=== PATIENT | male | born 1935 | race Caucasian/White ===

== ENCOUNTER 2021-11-21 11:38 | Inpatient (IN) | payer MEDICARE ==
[2021-11-21] MEDS ORDERED: ASPIRIN 81 MG PO STA (11:56)
[2021-11-21] MEDS ORDERED: HEPARIN SODIUM 1,000 UN/ML (10ML VL) IV ONE (12:14)
--- NOTE | 2021-11-21 12:14 | ED ---
General Adult HPI - General Chief complaint: Recheck/Abnormal Lab/Rx Stated complaint: chest pain, abn labs Time Seen by Provider: 11/21/21 11:56 Source: patient, family, RN notes reviewed, old records reviewed (Records from [facility]) Mode of arrival: wheelchair Limitations: no limitations - History of Present Illness Initial comments: Patient is a pleasant 86-year-old male presenting to the emergency department with concerns for heart problems. Patient has had cough and some mild dyspnea over the past 4 days. A bennett did go to [facility] yesterday diagnosed with influenza A. Patient also had positive troponin of 4.5. Patient denies having chest discomfort. Patient does have cardiac history and is on Eliquis. Last dose of Eliquis however was around one and half days ago. - Related Data Home Medications Medication Instructions Recorded Confirmed PARoxetine [Paxil] 20 mg PO DAILY 11/07/15 11/21/21 glipiZIDE [Glucotrol] 10 mg PO AC-BRKFST 11/07/15 11/21/21 lisinopriL [Prinivil] 20 mg PO DAILY 11/07/15 11/21/21 metFORMIN HCL 500 mg PO BID 11/07/15 11/21/21 Apixaban [Eliquis] 2.5 mg PO BID 11/21/21 11/21/21 Aspirin EC [Ecotrin Low Dose] 81 mg PO DAILY 11/21/21 11/21/21 Nitroglycerin Sl Tabs [Nitrostat] 0.4 mg SL Q5M PRN 11/21/21 11/21/21 Simvastatin [Zocor] 20 mg PO HS 11/21/21 11/21/21 Allergies Allergy/AdvReac Type Severity Reaction Status Date / Time Sulfa (Sulfonamide Allergy Rash/Hives Verified 11/21/21 13:13 Antibiotics) Review of Systems ROS Statement: Those systems with pertinent positive or pertinent negative responses have been documented in the HPI. ROS Other: All systems not noted in ROS Statement are negative. Constitutional: Reports: chills Eyes: Denies: eye pain ENT: Reports: congestion. Denies: ear pain Respiratory: Reports: cough, dyspnea Cardiovascular: Denies: chest pain Endocrine: Denies: fatigue Gastrointestinal: Denies: abdominal pain Genitourinary: Denies: dysuria Musculoskeletal: Denies: back pain Skin: Denies: rash Neurological: Denies: weakness Past Medical History Past Medical History: CVA/TIA, Diabetes Mellitus, Hyperlipidemia, Hypertension, Myocardial Infarction ([place]) Additional Past Medical History / Comment(s): bladder ca with ostomy bag History of Any Multi-Drug Resistant Organisms: None Reported Past Surgical History: Coronary Bypass/CABG, Heart Catheterization With Stent Additional Past Surgical History / Comment(s): bladder sx Past Psychological History: Depression Smoking Status: Former smoker Past Alcohol Use History: None Reported Past Drug Use History: None Reported General Exam Limitations: no limitations General appearance: alert, in no apparent distress Head exam: Present: normocephalic Eye exam: Present: normal appearance Neck exam: Present: normal inspection Respiratory exam: Present: wheezes Cardiovascular Exam: Present: irregular rhythm GI/Abdominal exam: Present: soft. Absent: tenderness Extremities exam: Present: normal inspection. Absent: pedal edema, calf tenderness Neurological exam: Present: alert Psychiatric exam: Present: normal affect, normal mood Skin exam: Present: normal color Course Vital Signs 11/21/21 11:45 Temperature 97.2 F L Pulse Rate 91 Respiratory 18 Rate Blood Pressure 139/74 O2 Sat by Pulse 96 Oximetry EKG Findings - EKG Comments: EKG Findings:: A. fib with rate of 91. QRS 150. QT 408. QTC 51. Left axis. Right bundle branch block. T-wave inversion V1 through V4. Medical Decision Making - Medical Decision Making Case also discussed with Dr. Bertrand, who will admit his patient. He is familiar with him. Cardiology will be placed on consult. Patient and family are updated. - Lab Data Result diagrams: 11/21/21 12:42 11/21/21 12:42 Lab Results 11/21/21 11/21/21 11/21/21 Range/Units 12:42 12:42 12:42 WBC 9.9 (3.8-10.6) k/uL RBC 3.87 L (4.30-5.90) m/uL Hgb 11.3 L (13.0-17.5) gm/dL Hct 36.4 L (39.0-53.0) % MCV 94.2 (80.0-100.0) fL MCH 29.2 (25.0-35.0) pg MCHC 31.0 (31.0-37.0) g/dL RDW 13.3 (11.5-15.5) % Plt Count 176 (150-450) k/uL MPV 9.5 Neutrophils % 97 % Lymphocytes % 1 % Monocytes % 2 % Eosinophils % 0 % Basophils % 0 % Neutrophils # 9.6 H (1.3-7.7) k/uL Lymphocytes # 0.1 L (1.0-4.8) k/uL Monocytes # 0.2 (0-1.0) k/uL Eosinophils # 0.0 (0-0.7) k/uL Basophils # 0.0 (0-0.2) k/uL Hypochromasia Slight PT 10.8 (9.0-12.0) sec INR 1.0 (<1.2) APTT 25.4 (22.0-30.0) sec Sodium 133 L (137-145) mmol/L Potassium 4.0 (3.5-5.1) mmol/L Chloride 97 L (98-107) mmol/L Carbon Dioxide 19 L (22-30) mmol/L Anion Gap 17 mmol/L BUN 67 H (9-20) mg/dL Creatinine 2.41 H (0.66-1.25) mg/dL Est GFR (CKD-EPI)AfAm 27 (>60 ml/min/1.73 sqM) Est GFR (CKD-EPI)NonAf 23 (>60 ml/min/1.73 sqM) Glucose 587 H* (74-99) mg/dL Calcium 8.6 (8.4-10.2) mg/dL Magnesium 1.8 (1.6-2.3) mg/dL Total Bilirubin 0.4 (0.2-1.3) mg/dL AST 42 (17-59) U/L ALT 21 (4-49) U/L Alkaline Phosphatase 62 (38-126) U/L Troponin I (0.000-0.034) ng/mL NT-Pro-B Natriuret Pep pg/mL Total Protein 5.9 L (6.3-8.2) g/dL Albumin 3.2 L (3.5-5.0) g/dL Acetone, Qual (Negative) 11/21/21 11/21/21 11/21/21 Range/Units 12:42 12:42 13:15 WBC (3.8-10.6) k/uL RBC (4.30-5.90) m/uL Hgb (13.0-17.5) gm/dL Hct (39.0-53.0) % MCV (80.0-100.0) fL MCH (25.0-35.0) pg MCHC (31.0-37.0) g/dL RDW (11.5-15.5) % Plt Count (150-450) k/uL MPV Neutrophils % % Lymphocytes % % Monocytes % % Eosinophils % % Basophils % % Neutrophils # (1.3-7.7) k/uL Lymphocytes # (1.0-4.8) k/uL Monocytes # (0-1.0) k/uL Eosinophils # (0-0.7) k/uL Basophils # (0-0.2) k/uL Hypochromasia PT (9.0-12.0) sec INR (<1.2) APTT (22.0-30.0) sec Sodium (137-145) mmol/L Potassium (3.5-5.1) mmol/L Chloride (98-107) mmol/L Carbon Dioxide (22-30) mmol/L Anion Gap mmol/L BUN (9-20) mg/dL Creatinine (0.66-1.25) mg/dL Est GFR (CKD-EPI)AfAm (>60 ml/min/1.73 sqM) Est GFR (CKD-EPI)NonAf (>60 ml/min/1.73 sqM) Glucose (74-99) mg/dL Calcium (8.4-10.2) mg/dL Magnesium (1.6-2.3) mg/dL Total Bilirubin (0.2-1.3) mg/dL AST (17-59) U/L ALT (4-49) U/L Alkaline Phosphatase (38-126) U/L Troponin I 2.460 H* (0.000-0.034) ng/mL NT-Pro-B Natriuret Pep 85261 pg/mL Total Protein (6.3-8.2) g/dL Albumin (3.5-5.0) g/dL Acetone, Qual Negative (Negative) - Radiology Data Radiology results: image reviewed (Chest x-ray shows chronic granulomatous disease) Critical Care Time Critical Care Time: Yes Total Critical Care Time: 32 Disposition Clinical Impression: Influenza, Non-STEMI (non-ST elevated myocardial infarction), Hyperglycemia Disposition: ADMITTED IP TO THIS HOSP Condition: Serious Is patient prescribed a controlled substance at d/c from ED?: No Referrals: Delmer Son Jr, DO [Primary Care Provider] - 1-2 days Decision Time: 13:31
[2021-11-21 12:50] LABS: Basophils % (A) 0 %; Eosinophils % (A) 0 %; HCT 36.4 % (39.0-53.0); HGB 11.3 gm/dL (13.0-17.5); Hypochromasia Slight; Lymphocytes # (A) 0.1 k/uL (1.0-4.8); Lymphocytes % (A) 1 %; MCH 29.2 pg (25.0-35.0); MCV 94.2 fL (80.0-100.0); Mean Platelet Volume 9.5; Monocytes # (A) 0.2 k/uL (0-1.0); Monocytes % (A) 2 %; Neutrophils # (A) 9.6 k/uL (1.3-7.7); Neutrophils % (A) 97 %; Platelet Count 176 k/uL (150-450); RBC 3.87 m/uL (4.30-5.90); RDW 13.3 % (11.5-15.5); WBC 9.9 k/uL (3.8-10.6)
[2021-11-21 12:58] LABS: Albumin 3.2 g/dL (3.5-5.0); Calcium 8.6 mg/dL (8.4-10.2); Magnesium 1.8 mg/dL (1.6-2.3); Total Bilirubin 0.4 mg/dL (0.2-1.3); Total Protein 5.9 g/dL (6.3-8.2)
[2021-11-21] MEDS ORDERED: INSULIN REGULAR 100 UNIT/ML VIAL (IV) IV ONE (13:10)
--- NOTE | 2021-11-21 13:15 | XR ---
EXAMINATION TYPE: XR chest 1V portable DATE OF EXAM: 11/21/2021 COMPARISON: 10/30/2016 HISTORY: Cough TECHNIQUE: Single frontal view of the chest is obtained. 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 Postoperative change. Atherosclerotic change aorta . No pneumothorax. Underlying COPD suspected. No pneumothorax. Linear reflection along the right lowe r lobe of as lung markings outside its margins and is likely related to soft tissue. Calcified lymph nodes in the mediastinum noted. IMPRESSION: 1. Correlate for chronic granulomatous disease and COPD.
[2021-11-21 13:18] LABS: Partial Thromboplastin Time 25.4 sec (22.0-30.0); Prothrombin Time 10.8 sec (9.0-12.0)
[2021-11-21] MEDS ORDERED: NITROGLYCERIN SL TABS 0.4 MG TAB SUBLINGUAL PRN (14:02)
[2021-11-21] MEDS ORDERED: SODIUM CHLORIDE 0.9% 1,000 ML IV SCH (14:15)
[2021-11-21] MEDS: HEPARIN SOD,PORK IN 0.45% NACL 25,000 UNIT in 0.45% NACL 1 250ML.BAG IV SCH (14:21)
[2021-11-21 15:17] LABS: Glucose,Whole Blood 487 mg/dL (75-99)
[2021-11-21 16:43] LABS: Glucose,Whole Blood 435 mg/dL (75-99)
[2021-11-21] MEDS: INSULIN ASPART (NovoLOG) 100 UNIT/ML VIAL SQ SCH ×3 (16:48→22:28)
[2021-11-21] MEDS ORDERED: INSULIN ASPART (NovoLOG) 100 UNIT/ML VIAL SQ STA (17:36)
[2021-11-21] MEDS: ALBUTEROL HFA INHALER INHALATION PRN (18:11)
[2021-11-21 22:24] LABS: Glucose,Whole Blood 133 mg/dL (75-99)
[2021-11-21] MEDS: INSULIN DETEMIR (LEVEMIR) 100 UNIT/ML SYR SQ SCH (22:28)
[2021-11-22] MEDS: HEPARIN SODIUM 1,000 UN/ML (10ML VL) IV PRN ×3 (00:38→14:40)
[2021-11-22 06:02] LABS: Basophils % (A) 0 %; Eosinophils # (A) 0.1 k/uL (0-0.7); Eosinophils % (A) 0 %; HCT 37.5 % (39.0-53.0); Lymphocytes # (A) 0.4 k/uL (1.0-4.8); Lymphocytes % (A) 2 %; MCH 29.3 pg (25.0-35.0); MCHC 31.9 g/dL (31.0-37.0); MCV 91.9 fL (80.0-100.0); Mean Platelet Volume 8.9; Monocytes # (A) 0.6 k/uL (0-1.0); Monocytes % (A) 3 %; Neutrophils # (A) 19.8 k/uL (1.3-7.7); Neutrophils % (A) 95 %; Platelet Count 247 k/uL (150-450); RBC 4.08 m/uL (4.30-5.90); RDW 13.2 % (11.5-15.5); WBC 20.9 k/uL (3.8-10.6)
[2021-11-22 06:21] LABS: Partial Thromboplastin Time 23.7 sec (22.0-30.0); Prothrombin Time 10.4 sec (9.0-12.0)
[2021-11-22 06:27] LABS: Glucose,Whole Blood 122 mg/dL (75-99)
[2021-11-22] MEDS: INSULIN ASPART (NovoLOG) 100 UNIT/ML VIAL SQ SCH ×8 (06:30→21:01)
[2021-11-22] MEDS ORDERED: ASPIRIN 325 MG TAB PO SCH (09:00)
[2021-11-22 09:08] LABS: Chol/HDL Ratio 2.82 Ratio; LDL Cholesterol,Calculated 59.9 mg/dL (0.0-131.0)
[2021-11-22] MEDS ORDERED: lisinopriL 20 MG TAB PO SCH (10:30)
--- NOTE | 2021-11-22 11:15 | P.CRDCN ---
History of Present Illness History of present illness: HISTORY OF PRESENTING ILLNESS Patient is a pleasant 86-year-old male with history of prior stroke, persistent atrial fibrillation, diabetes mellitus type 2, hypertension, coronary artery dis ease status post CABG approximately 2001, previous tobacco abuse as well as with Dr. Smiley. Office notes are not currently available. He presents from [facility] where he presented with feeling some increased shortness of breath and fatigue and "going downhill" for last 4-5 days. He was diagnosed with influenza A however also found to have elevated troponin of 4.5. Trop was repeated here and it was 2.4, 2.1. He denies any significant chest pain, pressure, tightness. His creatinine is noted to be elevated 2.4, unclear baseline and also has elevated white count at 20. EKG shows atrial fibrillation with right bundle branch block, nonspecific ST, T-wave abnormalities. REVIEW OF SYSTEMS At the time of my exam: CONSTITUTIONAL: Denies fever or chills. CARDIOVASCULAR: Denies chest pain, +shortness of breath, no orthopnea, PND or palpitations. RESPIRATORY: +mild cough. GASTROINTESTINAL: Denies abdominal pain, diarrhea, constipation, nausea or vomiting. MUSCULOSKELETAL: Denies myalgias. NEUROLOGIC: Denies numbness, tingling or weakness. ENDOCRINE: Denies fatigue, weight change, polydipsia or polyurina. GENITOURINARY: Denies burning, hematuria or urgency with micturation. HEMATOLOGIC: Denies history of anemia or bleeding. PHYSICAL EXAMINATION Vital signs reviewed. CONSTITUTIONAL: No apparent distress. HEENT: Head is normocephalic. Pupils are equal, round. Sclerae anicteric. Mucous membranes of the mouth are moist. No JVD. No carotid bruit. CHEST EXAMINATION: Lungs are clear to auscultation. No chest wall tenderness is noted on palpation or with deep breathing. HEART EXAMINATION: Irregular rate and rhythm. S1, S2 heard. ABDOMEN: Soft, nontender. Positive bowel sounds. EXTREMITIES: 2+ peripheral pulses, no lower extremity edema and no calf tenderness. NEUROLOGIC EXAMINATION: Patient is awake, alert and oriented x3. ASSESSMENT 1. Non-STEMI 2. Coronary artery disease status post CABG 3. Hypertension 4. Hyperlipidemia 5. Chronic kidney disease, unclear baseline 6. Persistent atrial fibrillation controlled ventricular rate 7. History of stroke 8. Diabetes mellitus 9. Leukocytosis 10. Influenza pneumonia PLAN Patient with fairly vague symptoms which may be mostly related to the influenza pneumonia. He has mainly been having some fatigue mild cough and shortness breath. He denies any specific obvious angina-type symptoms however troponin noted to be fairly elevated. We will attempt a more conservative approach given his age as well as significant chronic kidney disease. Check 2-D echo to evaluate for left ventricular function. Continue heparin drip for 48 hours and add low-dose metoprolol. Further recommendations to follow. Past Medical History Past Medical History: CVA/TIA, Diabetes Mellitus, Hyperlipidemia, Hypertension, Myocardial Infarction ([place]) Additional Past Medical History / Comment(s): bladder ca with ostomy bag Last Myocardial Infarction Date:: unknown History of Any Multi-Drug Resistant Organisms: None Reported Past Surgical History: Coronary Bypass/CABG, Heart Catheterization With Stent Additional Past Surgical History / Comment(s): bladder sx Past Anesthesia/Blood Transfusion Reactions: No Reported Reaction Date of Last Stent Placement:: 15 years ago Past Psychological History: Depression Smoking Status: Former smoker Past Alcohol Use History: None Reported Past Drug Use History: None Reported Medications and Allergies Home Medications Medication Instructions Recorded Confirmed Type PARoxetine [Paxil] 20 mg PO DAILY 11/07/15 11/21/21 History glipiZIDE [Glucotrol] 10 mg PO AC-BRKFST 11/07/15 11/21/21 History lisinopriL [Prinivil] 20 mg PO DAILY 11/07/15 11/21/21 History metFORMIN HCL 500 mg PO BID 11/07/15 11/21/21 History Apixaban [Eliquis] 2.5 mg PO BID 11/21/21 11/21/21 History Aspirin EC [Ecotrin Low Dose] 81 mg PO DAILY 11/21/21 11/21/21 History Nitroglycerin Sl Tabs [Nitrostat] 0.4 mg SL Q5M PRN 11/21/21 11/21/21 History Simvastatin [Zocor] 20 mg PO HS 11/21/21 11/21/21 History Allergies Allergy/AdvReac Type Severity Reaction Status Date / Time Sulfa (Sulfonamide Allergy Rash/Hives Verified 11/21/21 13:13 Antibiotics) Physical Exam Vitals: Vital Signs Temp Pulse Pulse Resp BP BP Pulse Ox 11/22/21 10:27 97.8 F 78 22 188/83 96 11/22/21 04:00 97.8 F 82 20 174/90 96 11/21/21 23:07 98.6 F 95 22 98 11/21/21 22:39 98.4 F 87 20 167/90 97 11/21/21 19:45 91 20 183/93 97 11/21/21 16:50 87 20 164/93 100 11/21/21 15:00 98.1 F 52 L 20 153/91 100 11/21/21 14:30 80 16 169/89 100 11/21/21 11:45 97.2 F L 91 18 139/74 96 Intake and Output 11/21/21 11/22/21 11/22/21 22:59 06:59 14:59 Intake Total 147.649 Output Total 400 425 Balance -400 -277.351 Intake: Intake, IV Titration 147.649 Amount Heparin Sod,Pork in 0.45% 147.649 NaCl 25,000 unit In 0.45 % NaCl 1 250ml.bag @ 12 UNITS/KG/HR 8.165 mls/hr IV .Q24H [facility] Rx#: [id number] Output: Urine 400 425 Other: Weight 68.039 kg 71 kg Results 11/22/21 05:42 11/21/21 12:42 Cardiac Enzymes 11/21/21 11/21/21 11/21/21 Range/Units 12:42 12:42 15:42 AST 42 (17-59) U/L Troponin I 2.460 H* 2.110 H* (0.000-0.034) ng/mL 11/21/21 Range/Units 18:18 AST (17-59) U/L Troponin I 2.510 H* (0.000-0.034) ng/mL Coagulation 11/21/21 11/21/21 11/21/21 Range/Units 12:42 18:18 21:35 PT 10.8 (9.0-12.0) sec APTT 25.4 31.6 H 30.3 H (22.0-30.0) sec 11/21/21 11/22/21 Range/Units 23:06 05:42 PT 10.4 (9.0-12.0) sec APTT 30.7 H 23.7 (22.0-30.0) sec Lipids 11/22/21 Range/Units 05:42 Triglycerides 104.00 (0.00-149.00) mg/dL Cholesterol 125.00 (0.00-200.00) mg/dL HDL Cholesterol 44.30 (40.00-60.00) mg/dL Cholesterol/HDL Ratio 2.82 Ratio CBC 11/21/21 11/22/21 Range/Units 12:42 05:42 WBC 9.9 20.9 H (3.8-10.6) k/uL RBC 3.87 L 4.08 L (4.30-5.90) m/uL Hgb 11.3 L 12.0 L (13.0-17.5) gm/dL Hct 36.4 L 37.5 L (39.0-53.0) % Plt Count 176 247 (150-450) k/uL Comprehensive Metabolic Panel 11/21/21 Range/Units 12:42 Sodium 133 L (137-145) mmol/L Potassium 4.0 (3.5-5.1) mmol/L Chloride 97 L (98-107) mmol/L Carbon Dioxide 19 L (22-30) mmol/L BUN 67 H (9-20) mg/dL Creatinine 2.41 H (0.66-1.25) mg/dL Glucose 587 H* (74-99) mg/dL Calcium 8.6 (8.4-10.2) mg/dL AST 42 (17-59) U/L ALT 21 (4-49) U/L Alkaline Phosphatase 62 (38-126) U/L Total Protein 5.9 L (6.3-8.2) g/dL Albumin 3.2 L (3.5-5.0) g/dL Current Medications Generic Name Dose Route Start Last Admin Trade Name Freq PRN Reason Stop Dose Admin Albuterol Sulfate 2 puff 11/21/21 12:22 11/21/21 18:11 Albuterol Hfa Inhaler INHALATION 2 puff RT-QID PRN Administration Shortness Of Breath Or Wheezing Aspirin 81 mg 11/23/21 09:00 Aspirin 81 Mg PO DAILY [facility] Atorvastatin Calcium 10 mg 11/22/21 21:00 Atorvastatin 10 Mg Tab PO HS [facility] Glipizide 10 mg 11/23/21 07:30 Glipizide 10 Mg Tab PO AC-BRKFST [facility] Heparin Sodium (Porcine) 0 unit 11/21/21 12:14 11/22/21 06:54 Heparin Sodium 1,000 Un/Ml (10ml Vl) IV 3,400 unit PER PROTOCOL PRN Administration Low PTT Protocol Heparin Sodium/Sodium Chloride 250 mls @ 8.165 mls/hr 11/21/21 12:15 11/22/21 06:52 25,000 unit/ Sodium Chloride IV 18 units/kg/hr .Q24H [facility] 12.247 mls/hr Titration Protocol 12 UNITS/KG/HR Insulin Aspart 0 unit 11/21/21 17:30 11/22/21 06:30 Insulin Aspart (Novolog) 100 Unit/Ml Vial SQ Not Given ACHS [facility] Protocol Insulin Aspart 5 unit 11/21/21 21:00 11/22/21 06:35 Insulin Aspart (Novolog) 100 Unit/Ml Vial SQ Not Given ACHS [facility] Insulin Detemir 20 unit 11/21/21 21:00 11/21/21 22:28 Insulin Detemir (Levemir) 100 Unit/Ml Syr SQ 20 unit HS [facility] Administration Lisinopril 20 mg 11/22/21 10:30 Lisinopril 20 Mg Tab PO DAILY [facility] Metformin HCl 500 mg 11/22/21 21:00 Metformin 500 Mg Tab PO BID [facility] Nitroglycerin 0.4 mg 11/21/21 14:02 Nitroglycerin Sl Tabs 0.4 Mg Tab SUBLINGUAL Q5M PRN Chest Pain Paroxetine HCl 20 mg 11/22/21 10:30 Paroxetine 20 Mg Tab PO DAILY [facility] Intake and Output 11/21/21 11/22/21 11/22/21 22:59 06:59 14:59 Intake Total 147.649 Output Total 400 425 Balance -400 -277.351 Intake: Intake, IV Titration 147.649 Amount Heparin Sod,Pork in 0.45% 147.649 NaCl 25,000 unit In 0.45 % NaCl 1 250ml.bag @ 12 UNITS/KG/HR 8.165 mls/hr IV .Q24H [facility] Rx#: [id number] Output: Urine 400 425 Other: Weight 68.039 kg 71 kg Patient Weight 11/23/21 06:59 Weight 71 kg 11/22/21 05:42 11/21/21 12:42
[2021-11-22] MEDS ORDERED: METOPROLOL SUCCINATE (ER) 25 MG TAB.ER.24H PO SCH (11:30)
[2021-11-22 12:11] LABS: Glucose,Whole Blood 108 mg/dL (75-99)
[2021-11-22] MEDS: PARoxetine 20 MG TAB PO SCH (12:37)
--- NOTE | 2021-11-22 12:37 | P.HPIM ---
History of Present Illness H&P Date: 11/22/21 Chief Complaint: Chest pain, known history of heart disease, A. fib Mr. Goncalves is an 86-year-old male well-known to our practice known history of heart disease with A. fib. Patient has CAD, mild dyspnea over the last 4 days. Patient originally presented [facility] emergency room, was diagnosed with influenza a. Positive troponin of 4.5 was noted patient denies chest pain does have cardiac history including atrial fibrillation patient is on eliquis . Last dose of eliquis was 1-1/2 days ago Review of Systems Constitutional: Reports fatigue, Reports malaise, Reports poor appetite Ears, nose, mouth and throat: Reports as per HPI Cardiovascular: Reports chest pain, Reports decreased exercise tolerance, Reports high blood pressure, Reports irregular heart beat, Reports orthopnea Respiratory: Reports as per HPI, Reports congestion, Reports cough (Positive influenza a) Gastrointestinal: Reports as per HPI, Reports nausea Genitourinary: Reports as per HPI Musculoskeletal: Reports as per HPI Integumentary: Reports as per HPI Neurological: Reports as per HPI Psychiatric: Reports as per HPI Past Medical History Past Medical History: Atrial Fibrillation, CVA/TIA, Diabetes Mellitus, Hyperlipidemia, Hypertension, Myocardial Infarction ([place]) Additional Past Medical History / Comment(s): bladder ca with ostomy bag Last Myocardial Infarction Date:: unknown History of Any Multi-Drug Resistant Organisms: None Reported Past Surgical History: Coronary Bypass/CABG, Heart Catheterization With Stent Additional Past Surgical History / Comment(s): bladder sx Past Anesthesia/Blood Transfusion Reactions: No Reported Reaction Date of Last Stent Placement:: 15 years ago Past Psychological History: Depression Smoking Status: Former smoker Past Alcohol Use History: None Reported Past Drug Use History: None Reported Medications and Allergies Home Medications Medication Instructions Recorded Confirmed Type PARoxetine [Paxil] 20 mg PO DAILY 11/07/15 11/21/21 History glipiZIDE [Glucotrol] 10 mg PO AC-BRKFST 11/07/15 11/21/21 History lisinopriL [Prinivil] 20 mg PO DAILY 11/07/15 11/21/21 History metFORMIN HCL 500 mg PO BID 11/07/15 11/21/21 History Apixaban [Eliquis] 2.5 mg PO BID 11/21/21 11/21/21 History Aspirin EC [Ecotrin Low Dose] 81 mg PO DAILY 11/21/21 11/21/21 History Nitroglycerin Sl Tabs [Nitrostat] 0.4 mg SL Q5M PRN 11/21/21 11/21/21 History Simvastatin [Zocor] 20 mg PO HS 11/21/21 11/21/21 History Allergies Allergy/AdvReac Type Severity Reaction Status Date / Time Sulfa (Sulfonamide Allergy Rash/Hives Verified 11/21/21 13:13 Antibiotics) Physical Exam Osteopathic Statement: *. No significant issues noted on an osteopathic structural exam other than those noted in the History and Physical/Consult. Vitals: Vital Signs Temp Pulse Pulse Resp BP BP Pulse Ox 11/22/21 10:27 97.8 F 78 22 188/83 96 11/22/21 04:00 97.8 F 82 20 174/90 96 11/21/21 23:07 98.6 F 95 22 98 11/21/21 22:39 98.4 F 87 20 167/90 97 11/21/21 19:45 91 20 183/93 97 11/21/21 16:50 87 20 164/93 100 11/21/21 15:00 98.1 F 52 L 20 153/91 100 11/21/21 14:30 80 16 169/89 100 Intake and Output 11/21/21 11/22/21 11/22/21 22:59 06:59 14:59 Intake Total 147.649 Output Total 400 425 Balance -400 -277.351 Intake: Intake, IV Titration 147.649 Amount Heparin Sod,Pork in 0.45% 147.649 NaCl 25,000 unit In 0.45 % NaCl 1 250ml.bag @ 12 UNITS/KG/HR 8.165 mls/hr IV .Q24H [facility] Rx#: [id number] Output: Urine 400 425 Other: Weight 68.039 kg 71 kg General: [Patient awake, alert and oriented times 3. Patient in no acute distress.] HEENT: [PERRL. EOMI. No pharyngeal erythema or exudate.] Neck: [No adenopathy.] Cardiac: [Heart regularly irregular. No S3. No S4. No clicks, rubs. No murmur.] Lungs: Bibasilar mild wheezes, intermittent cough Abdomen: [No mass. No organomegaly. Bowel sounds presnt and normoactive in all 4 quadrants.] Extremes: [No edema no cyanosis no claudication normal pulses] : Normal male genitalia Musculoskeletal: [No joint erythema, edema or tenderness.] Skin: [No rash.] Neurologic: [No lateralizing deficits. CN II - XII grossly intact.] Lymphatic: [No adenopathy.] Results CBC & Chem 7: 11/22/21 05:42 11/21/21 12:42 Labs: Abnormal Lab Results - Last 24 Hours (Table) 11/21/21 11/21/21 11/21/21 Range/Units 12:42 12:42 12:42 WBC (3.8-10.6) k/uL RBC 3.87 L (4.30-5.90) m/uL Hgb 11.3 L (13.0-17.5) gm/dL Hct 36.4 L (39.0-53.0) % Neutrophils # 9.6 H (1.3-7.7) k/uL Lymphocytes # 0.1 L (1.0-4.8) k/uL APTT (22.0-30.0) sec Sodium 133 L (137-145) mmol/L Chloride 97 L (98-107) mmol/L Carbon Dioxide 19 L (22-30) mmol/L BUN 67 H (9-20) mg/dL Creatinine 2.41 H (0.66-1.25) mg/dL Glucose 587 H* (74-99) mg/dL POC Glucose (mg/dL) (75-99) mg/dL Troponin I 2.460 H* (0.000-0.034) ng/mL Total Protein 5.9 L (6.3-8.2) g/dL Albumin 3.2 L (3.5-5.0) g/dL 11/21/21 11/21/21 11/21/21 Range/Units 15:12 15:42 16:42 WBC (3.8-10.6) k/uL RBC (4.30-5.90) m/uL Hgb (13.0-17.5) gm/dL Hct (39.0-53.0) % Neutrophils # (1.3-7.7) k/uL Lymphocytes # (1.0-4.8) k/uL APTT (22.0-30.0) sec Sodium (137-145) mmol/L Chloride (98-107) mmol/L Carbon Dioxide (22-30) mmol/L BUN (9-20) mg/dL Creatinine (0.66-1.25) mg/dL Glucose (74-99) mg/dL POC Glucose (mg/dL) 487 H 435 H (75-99) mg/dL Troponin I 2.110 H* (0.000-0.034) ng/mL Total Protein (6.3-8.2) g/dL Albumin (3.5-5.0) g/dL 11/21/21 11/21/21 11/21/21 Range/Units 18:18 18:18 21:35 WBC (3.8-10.6) k/uL RBC (4.30-5.90) m/uL Hgb (13.0-17.5) gm/dL Hct (39.0-53.0) % Neutrophils # (1.3-7.7) k/uL Lymphocytes # (1.0-4.8) k/uL APTT 31.6 H 30.3 H (22.0-30.0) sec Sodium (137-145) mmol/L Chloride (98-107) mmol/L Carbon Dioxide (22-30) mmol/L BUN (9-20) mg/dL Creatinine (0.66-1.25) mg/dL Glucose (74-99) mg/dL POC Glucose (mg/dL) (75-99) mg/dL Troponin I 2.510 H* (0.000-0.034) ng/mL Total Protein (6.3-8.2) g/dL Albumin (3.5-5.0) g/dL 11/21/21 11/21/21 11/22/21 Range/Units 22:21 23:06 05:42 WBC 20.9 H (3.8-10.6) k/uL RBC 4.08 L (4.30-5.90) m/uL Hgb 12.0 L (13.0-17.5) gm/dL Hct 37.5 L (39.0-53.0) % Neutrophils # 19.8 H (1.3-7.7) k/uL Lymphocytes # 0.4 L (1.0-4.8) k/uL APTT 30.7 H (22.0-30.0) sec Sodium (137-145) mmol/L Chloride (98-107) mmol/L Carbon Dioxide (22-30) mmol/L BUN (9-20) mg/dL Creatinine (0.66-1.25) mg/dL Glucose (74-99) mg/dL POC Glucose (mg/dL) 133 H (75-99) mg/dL Troponin I (0.000-0.034) ng/mL Total Protein (6.3-8.2) g/dL Albumin (3.5-5.0) g/dL 11/22/21 11/22/21 Range/Units 06:26 12:01 WBC (3.8-10.6) k/uL RBC (4.30-5.90) m/uL Hgb (13.0-17.5) gm/dL Hct (39.0-53.0) % Neutrophils # (1.3-7.7) k/uL Lymphocytes # (1.0-4.8) k/uL APTT (22.0-30.0) sec Sodium (137-145) mmol/L Chloride (98-107) mmol/L Carbon Dioxide (22-30) mmol/L BUN (9-20) mg/dL Creatinine (0.66-1.25) mg/dL Glucose (74-99) mg/dL POC Glucose (mg/dL) 122 H 108 H (75-99) mg/dL Troponin I (0.000-0.034) ng/mL Total Protein (6.3-8.2) g/dL Albumin (3.5-5.0) g/dL Thrombosis Risk Factor Assmnt - Choose All That Apply Each Risk Factor Represents 2 Points: Age 61-74 years (Known history of A. fib currently on eliquis 5 mg twice daily) Thrombosis Risk Factor Assessment Total Risk Factor Score: 2 Thrombosis Risk Factor Assessment Level: Low Risk Assessment and Plan (1) Hyperglycemia Current Visit: Yes Status: Acute Code(s): R73.9 - HYPERGLYCEMIA, UNSPECIFIED SNOMED Code(s): 54966299 (2) Influenza Current Visit: Yes Status: Acute Code(s): J11.1 - FLU DUE TO UNIDENTIFIED INFLUENZA VIRUS W OTH RESP MANIFEST SNOMED Code(s): 0513135 (3) Non-STEMI (non-ST elevated myocardial infarction) Current Visit: Yes Status: Acute Code(s): I21.4 - NON-ST ELEVATION (NSTEMI) MYOCARDIAL INFARCTION SNOMED Code(s): 53695277 Plan: Patient admitted to the hospital monitored bed Cardiology consultation obtained Serial troponins performed Judicious rehydration Conservative therapy recommended Time with Patient: Greater than 30
--- NOTE | 2021-11-22 13:01 | P.PN ---
Progress Note - Text Progress Note Date: 11/22/21 Patient's GFR has decreased lower than 30, 27 today we will stop lisinopril, start hydralazine 25 mg 3 times a day, and continue metoprolol as scheduled will follow blood pressure accordingly
[2021-11-22] MEDS: ALBUTEROL HFA INHALER INHALATION PRN ×3 (13:14→19:48)
[2021-11-22] MEDS: guaiFENesin-DM 600/30MG 1 EACH TAB.ER.12H PO SCH ×2 (14:39→21:29)
[2021-11-22] MEDS: hydrALAZINE HCL 25 MG TAB PO SCH ×2 (15:28→20:41)
[2021-11-22 17:03] LABS: Glucose,Whole Blood 220 mg/dL (75-99)
[2021-11-22] MEDS ORDERED: METOPROLOL TARTRATE 25 MG TAB PO STA (17:06)
[2021-11-22] MEDS: APIXABAN 2.5 MG TABLET PO SCH (18:22)
[2021-11-22] MEDS ORDERED: FUROSEMIDE 40 MG TAB PO STA (20:26)
[2021-11-22] MEDS: IPRATROPIUM-ALBUTEROL 3 ML NEB INHALATION PRN (20:29)
[2021-11-22] MEDS: ATORVASTATIN 10 MG TAB PO SCH (20:42)
[2021-11-22] MEDS: INSULIN DETEMIR (LEVEMIR) 100 UNIT/ML SYR SQ SCH (21:00)
[2021-11-22] MEDS ORDERED: metFORMIN 500 MG TAB PO SCH (21:00)
[2021-11-22 21:02] LABS: Glucose,Whole Blood 159 mg/dL (75-99)
[2021-11-22] MEDS: HEPARIN SOD,PORK IN 0.45% NACL 25,000 UNIT in 0.45% NACL 1 250ML.BAG IV SCH (23:39)
[2021-11-23] MEDS: IPRATROPIUM-ALBUTEROL 3 ML NEB INHALATION PRN ×2 (04:09→08:26)
[2021-11-23 06:33] LABS: Glucose,Whole Blood 127 mg/dL (75-99)
[2021-11-23] MEDS: INSULIN ASPART (NovoLOG) 100 UNIT/ML VIAL SQ SCH ×8 (06:38→21:50)
[2021-11-23] MEDS: glipiZIDE 10 MG TAB PO SCH (06:40)
[2021-11-23 08:32] LABS: Calcium 8.6 mg/dL (8.4-10.2); Potassium 4.8 mmol/L (3.5-5.1)
[2021-11-23] MEDS: hydrALAZINE HCL 25 MG TAB PO SCH ×3 (08:41→21:50)
[2021-11-23] MEDS: guaiFENesin-DM 600/30MG 1 EACH TAB.ER.12H PO SCH ×2 (08:41→21:49)
[2021-11-23] MEDS: ASPIRIN 81 MG PO SCH (08:41)
[2021-11-23] MEDS: METOPROLOL SUCCINATE (ER) 50 MG TAB.ER.24H PO SCH (08:41)
[2021-11-23] MEDS: PARoxetine 20 MG TAB PO SCH (08:41)
[2021-11-23] MEDS: APIXABAN 2.5 MG TABLET PO SCH ×2 (08:41→21:49)
--- NOTE | 2021-11-23 11:09 | P.NPCON ---
History of Present Illness - Reason for Consult acute renal failure, chronic renal failure - History of Present Illness Reason for consultation: Acute kidney injury on chronic kidney disease History of present illness: Patient is a 86-year-old male seen in renal consultation for acute kidney injury on chronic kidney disease. Patient's creatinine in October 2015 was 1.6 at this admission and was elevated at 2.41. Today it is up to 3.12. Patient does not follow with a cardiac cath lab radiology technologist outpatient. Family is present at bedside. Patient was brought to the hospital due to worsening shortness of breath. He also had a productive cough. Symptoms abdomen going on for the last 4 days. He initially presented to [facility] and was diagnosed with influenza A. Daughter states he tested negative for coronavirus. Patient's currently resting in bed and is not a reliable historian. Chest x-ray shows chronic granulomatous disease and COPD. Patient does have history of diabetes. He was also on lisinopril outpatient which is currently held. Denies use of nonsteroidals. No hematuria. He did receive a dose of oral Lasix overnight. Patient has history of bladder cancer and has a urostomy. Vital signs are stable. General: On high flow cannula. HEENT: Head exam is unremarkable. LUNGS: Breath sounds decreased. HEART: Rate and Rhythm are regular. ABDOMEN: Soft, no distention. EXTREMITITES: No edema. Past Medical History Past Medical History: Atrial Fibrillation, Coronary Artery Disease (CAD), CVA/TIA, Diabetes Mellitus, Hyperlipidemia, Hypertension, Myocardial Infarction ([place]) Additional Past Medical History / Comment(s): bladder ca with ostomy bag Last Myocardial Infarction Date:: unknown History of Any Multi-Drug Resistant Organisms: None Reported Past Surgical History: Coronary Bypass/CABG, Heart Catheterization With Stent Additional Past Surgical History / Comment(s): bladder sx Past Anesthesia/Blood Transfusion Reactions: No Reported Reaction Date of Last Stent Placement:: 15 years ago Past Psychological History: Depression Smoking Status: Former smoker Past Alcohol Use History: None Reported Past Drug Use History: None Reported Medications and Allergies Home Medications Medication Instructions Recorded Confirmed Type PARoxetine [Paxil] 20 mg PO DAILY 11/07/15 11/21/21 History glipiZIDE [Glucotrol] 10 mg PO AC-BRKFST 11/07/15 11/21/21 History lisinopriL [Prinivil] 20 mg PO DAILY 11/07/15 11/21/21 History metFORMIN HCL 500 mg PO BID 11/07/15 11/21/21 History Apixaban [Eliquis] 2.5 mg PO BID 11/21/21 11/21/21 History Aspirin EC [Ecotrin Low Dose] 81 mg PO DAILY 11/21/21 11/21/21 History Nitroglycerin Sl Tabs [Nitrostat] 0.4 mg SL Q5M PRN 11/21/21 11/21/21 History Simvastatin [Zocor] 20 mg PO HS 11/21/21 11/21/21 History Allergies Allergy/AdvReac Type Severity Reaction Status Date / Time Sulfa (Sulfonamide Allergy Rash/Hives Verified 11/21/21 13:13 Antibiotics) Physical Exam Vitals: Vital Signs Temp Pulse Pulse Resp BP BP Pulse Ox 11/23/21 08:42 97 11/23/21 08:38 82 11/23/21 08:26 80 11/23/21 08:00 98 F 94 20 127/60 95 11/23/21 04:34 95 11/23/21 04:25 72 11/23/21 04:09 68 11/23/21 04:00 98.1 F 91 21 130/62 98 11/23/21 02:00 92 21 11/23/21 00:00 98.3 F 92 21 130/63 98 11/22/21 20:42 79 11/22/21 20:40 22 94 L 11/22/21 20:31 84 11/22/21 20:00 98.6 F 82 22 159/79 85 L 11/22/21 19:04 189/86 11/22/21 16:45 98.4 F 73 18 198/94 98 11/22/21 13:55 94 L 11/22/21 12:44 98 F 80 18 197/95 98 Intake and Output 11/22/21 11/23/21 11/23/21 22:59 06:59 14:59 Intake Total 0 120 Output Total 150 250 Balance -150 -130 Intake: Oral 0 120 Output: Urine 150 250 Other: Weight 71 kg Results - Lab Results Most recent lab results Calcium 8.6 mg/dL (8.4-10.2) 11/23/21 08:04 Magnesium 2.0 mg/dL (1.6-2.3) 11/23/21 08:04 11/22/21 05:42 11/23/21 08:04 Assessment and Plan Plan: Assessment: 1. Acute kidney injury secondary to ATN. Creatinine was 2.41 on admission and is 3.12 today. 2. Chronic kidney disease stage IIIB with creatinine 1.6 in October 2015. 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 No other records available. 3. History of bladder cancer status post urostomy. 4. Metabolic acidosis secondary to acute kidney injury. Also on metformin. 5. Hypertension with chronic any disease. 6. Diabetes mellitus. 7. Influenza A infection. Plan: Patient received a dose of oral Lasix last night. Continue to hold lisinopril. Repeat chest x-ray. Avoid nephrotoxins. Add oral sodium bicarbonate. Check urinalysis. Stop metformin. Add amlodipine 5 mg once daily. Thank you for the consultation. I will continue to follow the patient with you during his hospital stay.
--- NOTE | 2021-11-23 11:42 | P.PN ---
Subjective HISTORY OF PRESENTING ILLNESS Patient is a pleasant 86-year-old male with history of prior stroke, persistent atrial fibrillation, diabetes mellitus type 2, hypertension, coronary artery disease status post CABG approximately 2001, previous tobacco abuse as well as with Dr. Smiley. Office notes are not currently available. He presents from [facility] where he presented with feeling some increased shortness of breath and fatigue and "going downhill" for last 4-5 days. He was diagnosed with influenza A however also found to have elevated troponin of 4.5. Trop was repeated here and it was 2.4, 2.1. He denies any significant chest pain, pressure, tightness. His creatinine is noted to be elevated 2.4, unclear baseline and also has elevated white count at 20. EKG shows atrial fibrillation with right bundle branch block, nonspecific ST, T-wave abnormalities. 1/2 Patient remains on high flow however states breathing is somewhat better. Apparently he was more confused overnight however no appears improving. Creatinine increased into the threes today and nephrology saw patient with lisinopril held and Amlodipine added. BP's have been controlled. Echo pending. Tele Afib with CVR. PHYSICAL EXAMINATION Vital signs reviewed. CONSTITUTIONAL: No apparent distress. HEENT: Head is normocephalic. Pupils are equal, round. Sclerae anicteric. Mucous membranes of the mouth are moist. No JVD. No carotid bruit. CHEST EXAMINATION: Lungs are clear to auscultation. No chest wall tenderness is noted on palpation or with deep breathing. HEART EXAMINATION: Irregular rate and rhythm. S1, S2 heard. ABDOMEN: Soft, nontender. Positive bowel sounds. EXTREMITIES: 2+ peripheral pulses, no lower extremity edema and no calf tendern ess. NEUROLOGIC EXAMINATION: Patient is awake, alert and oriented x3. ASSESSMENT 1. Non-STEMI 2. Coronary artery disease status post CABG 3. Hypertension 4. Hyperlipidemia 5. Chronic kidney disease, unclear baseline 6. Persistent atrial fibrillation controlled ventricular rate 7. History of stroke 8. Diabetes mellitus 9. Leukocytosis 10. Influenza pneumonia PLAN Patient with fairly vague symptoms which may be mostly related to the influenza pneumonia. Attempt a more conservative approach given his age as well as significant chronic kidney disease. Check 2-D echo to evaluate for left ventricular function. Continue low-dose metoprolol. Monitor Cr closely with KIM. Further recs to follow. Objective - Vital Signs Vital signs: Vital Signs Temp 98 F 11/23/21 08:00 Pulse 82 11/23/21 08:38 Resp 20 11/23/21 08:00 BP 127/60 11/23/21 08:00 Pulse Ox 97 11/23/21 08:42 Intake & Output 11/22/21 11/23/21 11/23/21 18:59 06:59 18:59 Intake Total 734.098 120 Output Total 520 250 Balance 214.098 -130 Weight 71 kg 71 kg Intake: Intake, IV Titration 94.098 Amount Heparin Sod,Pork in 0.45% 94.098 NaCl 25,000 unit In 0.45 % NaCl 1 250ml.bag @ 12 UNITS/KG/HR 8.165 mls/hr IV .[facility]H [facility] Rx#: [id number] Oral 640 120 Output: Urine 520 250 - Labs CBC & Chem 7: 11/22/21 05:42 11/23/21 08:04 Labs: Abnormal Lab Results - Last 24 Hours (Table) 11/22/21 11/22/21 11/22/21 Range/Units 12:01 16:51 20:37 APTT (22.0-30.0) sec Sodium (137-145) mmol/L Carbon Dioxide (22-30) mmol/L BUN (9-20) mg/dL Creatinine (0.66-1.25) mg/dL Glucose (74-99) mg/dL POC Glucose (mg/dL) 108 H 220 H 159 H (75-99) mg/dL 11/22/21 11/23/21 11/23/21 Range/Units 22:21 06:24 08:04 APTT 43.3 H (22.0-30.0) sec Sodium 136 L (137-145) mmol/L Carbon Dioxide 19 L (22-30) mmol/L BUN 103 H* (9-20) mg/dL Creatinine 3.12 H (0.66-1.25) mg/dL Glucose 150 H (74-99) mg/dL POC Glucose (mg/dL) 127 H (75-99) mg/dL
[2021-11-23 11:57] LABS: Glucose,Whole Blood 234 mg/dL (75-99)
--- NOTE | 2021-11-23 12:12 | P.CNPUL ---
History of Present Illness Consult date: 11/23/21 Reason for consult: dyspnea History of present illness: 86-year-old male patient was a transfer from the hospital because of worsening shortness of breath. The patient denies having any previous history of lung disease. He is known to have an extensive cardiac disease including coronary artery disease, previous bypass surgery, atrial fibrillation, chronic kidney disease, hypertension and hyperlipidemia and diabetes mellitus. The patient is not vaccinated for COVID 19. The patient started getting sick approximately 3-4 days ago. He was feeling exhausted and tired and fatigued and short of breath and congested. No documented fever. He was not having any chest pain. His troponin was found to be elevated at 4.5 highest and the repeat levels came back at 2.4 and 2.1. COVID 19 testing that was done in [facility] came tom k negative and the patient is not vaccinated. The patient however tested positive for influenza. He got transferred to the hospital for further evaluation. His creatinine was elevated and the patient is known to have chronic kidney disease. He has white cell count at time of admission was 20.9. Creatinine was at 3.1. Sodium is at 136. Chest x-ray showed no acute pulmonary infiltrates. No altered mentation. No hemoptysis. No pleurisy. Cardiology will be evaluating the patient. The patient is currently on IV heparin. Echocardiac Antonio was also ordered. Review of Systems Constitutional: Reports fatigue, Reports weakness Eyes: denies as per HPI, denies blurred vision, denies bulging eye, denies decreased vision, denies diplopia, denies discharge, denies dry eye, denies irritation, denies itching, denies pain, denies photophobia, denies loss of peripheral vision, denies loss of vision, denies tunnel vision/blind spots Ears: deny: decreased hearing, ear discharge, earache, tinnitus Ears, nose, mouth and throat: Reports as per HPI Breasts: absent: as per HPI, gynecomastia Cardiovascular: Reports as per HPI, Reports shortness of breath Respiratory: Reports congestion, Reports cough, Reports cough with sputum, Reports dyspnea Gastrointestinal: Reports as per HPI Genitourinary: Reports as per HPI Musculoskeletal: Reports as per HPI Musculoskeletal: absent: ankle pain, ankle stiffness, ankle swelling Integumentary: Reports as per HPI Neurological: Reports as per HPI Psychiatric: Reports as per HPI Endocrine: Reports as per HPI Hematologic/Lymphatic: Reports as per HPI Allergic/Immunologic: Reports as per HPI Past Medical History Past Medical History: Atrial Fibrillation, Coronary Artery Disease (CAD), CVA/TIA, Diabetes Mellitus, Hyperlipidemia, Hypertension, Myocardial Infarction ([place]) Additional Past Medical History / Comment(s): bladder ca with ostomy bag Last Myocardial Infarction Date:: unknown History of Any Multi-Drug Resistant Organisms: None Reported Past Surgical History: Coronary Bypass/CABG, Heart Catheterization With Stent Additional Past Surgical History / Comment(s): bladder sx Past Anesthesia/Blood Transfusion Reactions: No Reported Reaction Date of Last Stent Placement:: 15 years ago Past Psychological History: Depression Smoking Status: Former smoker Past Alcohol Use History: None Reported Past Drug Use History: None Reported Medications and Allergies Home Medications Medication Instructions Recorded Confirmed Type PARoxetine [Paxil] 20 mg PO DAILY 11/07/15 11/21/21 History glipiZIDE [Glucotrol] 10 mg PO AC-BRKFST 11/07/15 11/21/21 History lisinopriL [Prinivil] 20 mg PO DAILY 11/07/15 11/21/21 History metFORMIN HCL 500 mg PO BID 11/07/15 11/21/21 History Apixaban [Eliquis] 2.5 mg PO BID 11/21/21 11/21/21 History Aspirin EC [Ecotrin Low Dose] 81 mg PO DAILY 11/21/21 11/21/21 History Nitroglycerin Sl Tabs [Nitrostat] 0.4 mg SL Q5M PRN 11/21/21 11/21/21 History Simvastatin [Zocor] 20 mg PO HS 11/21/21 11/21/21 History Allergies Allergy/AdvReac Type Severity Reaction Status Date / Time Sulfa (Sulfonamide Allergy Rash/Hives Verified 11/21/21 13:13 Antibiotics) Physical Exam Vitals: Vital Signs Temp Pulse Pulse Resp BP BP Pulse Ox 11/23/21 08:42 97 11/23/21 08:38 82 11/23/21 08:26 80 11/23/21 08:00 98 F 94 20 127/60 95 11/23/21 04:34 95 11/23/21 04:25 72 11/23/21 04:09 68 11/23/21 04:00 98.1 F 91 21 130/62 98 11/23/21 02:00 92 21 11/23/21 00:00 98.3 F 92 21 130/63 98 11/22/21 20:42 79 11/22/21 20:40 22 94 L 11/22/21 20:31 84 11/22/21 20:00 98.6 F 82 22 159/79 85 L 11/22/21 19:04 189/86 11/22/21 16:45 98.4 F 73 18 198/94 98 11/22/21 13:55 94 L 11/22/21 12:44 98 F 80 18 197/95 98 Intake and Output 11/22/21 11/23/21 11/23/21 22:59 06:59 14:59 Intake Total 0 120 Output Total 150 250 Balance -150 -130 Intake: Oral 0 120 Output: Urine 150 250 Other: Weight 71 kg CONSTITUTIONAL: No apparent distress. The breathing is mildly labored and the patient is currently on 8 L about 2 by nasal cannula, initially came to us on 15 L of oxygen. Head exam was generally normal. There was no scleral icterus or corneal arcus. Mucous membranes were moist. HEENT: Head is normocephalic. Pupils are equal, round. Sclerae anicteric. Mucous membranes of the mouth are moist. No JVD. No carotid bruit. CHEST EXAMINATION: Lungs revealed diffuse expiratory wheezes heard throughout the lung meza bilaterally Cardiac exam revealed the PMI to be normally situated and sized. The rhythm was regular and no extrasystoles were noted during several minutes of auscultation. The first and second heart sounds were normal and physiologic splitting of the second heart sound was noted. There were no murmurs, rubs, clicks, or gallops. Abdominal exam revealed normal bowel sounds. The abdomen was soft, non-tender, and without masses, organomegaly, or appreciable enlargement of the abdominal aorta. EXTREMITIES: 2+ peripheral pulses, no lower extremity edema and no calf tenderne ss. NEUROLOGIC EXAMINATION: Patient is awake, alert and oriented x3. Results - Laboratory Findings CBC and BMP: 11/22/21 05:42 11/23/21 08:04 PT/INR, D-dimer PT 10.4 sec (9.0-12.0) 11/22/21 05:42 INR 1.0 (<1.2) 11/22/21 05:42 Abnormal lab findings: Abnormal Labs 11/21/21 11/21/21 11/21/21 12:42 12:42 12:42 WBC RBC 3.87 L Hgb 11.3 L Hct 36.4 L Neutrophils # 9.6 H Lymphocytes # 0.1 L APTT Sodium 133 L Chloride 97 L Carbon Dioxide 19 L BUN 67 H Creatinine 2.41 H Glucose 587 H* POC Glucose (mg/dL) Troponin I 2.460 H* Total Protein 5.9 L Albumin 3.2 L 11/21/21 11/21/21 11/21/21 15:12 15:42 16:42 WBC RBC Hgb Hct Neutrophils # Lymphocytes # APTT Sodium Chloride Carbon Dioxide BUN Creatinine Glucose POC Glucose (mg/dL) 487 H 435 H Troponin I 2.110 H* Total Protein Albumin 11/21/21 11/21/21 11/21/21 18:18 18:18 21:35 WBC RBC Hgb Hct Neutrophils # Lymphocytes # APTT 31.6 H 30.3 H Sodium Chloride Carbon Dioxide BUN Creatinine Glucose POC Glucose (mg/dL) Troponin I 2.510 H* Total Protein Albumin 11/21/21 11/21/21 11/22/21 22:21 23:06 05:42 WBC 20.9 H RBC 4.08 L Hgb 12.0 L Hct 37.5 L Neutrophils # 19.8 H Lymphocytes # 0.4 L APTT 30.7 H Sodium Chloride Carbon Dioxide BUN Creatinine Glucose POC Glucose (mg/dL) 133 H Troponin I Total Protein Albumin 11/22/21 11/22/21 11/22/21 06:26 12:01 16:51 WBC RBC Hgb Hct Neutrophils # Lymphocytes # APTT Sodium Chloride Carbon Dioxide BUN Creatinine Glucose POC Glucose (mg/dL) 122 H 108 H 220 H Troponin I Total Protein Albumin 11/22/21 11/22/21 11/23/21 20:37 22:21 06:24 WBC RBC Hgb Hct Neutrophils # Lymphocytes # APTT 43.3 H Sodium Chloride Carbon Dioxide BUN Creatinine Glucose POC Glucose (mg/dL) 159 H 127 H Troponin I Total Protein Albumin 11/23/21 08:04 WBC RBC Hgb Hct Neutrophils # Lymphocytes # APTT Sodium 136 L Chloride Carbon Dioxide 19 L BUN 103 H* Creatinine 3.12 H Glucose 150 H POC Glucose (mg/dL) Troponin I Total Protein Albumin - Diagnostic Findings Chest x-ray: image reviewed Assessment and Plan Plan: 1 acute influenza taken bronchitis with secondary shortness of breath 2 bilateral pulmonary microcalcification 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 Cardiology is on the case. 5 previous history of coronary artery disease, previous CABG 5 history of bladder cancer, post cystectomy and urostomy 5 chronic kidney disease 6 Lucinda CVA 7 Diabetes Melitus type 2 2 platelet by tomorrow Plan The patient will be kept on 8l nasal cannula for now. We'll put the patient on DuoNeb nebulized treatments around the clock 4 times a day We'll start the patient Tamiflu 75 mg by mouth daily We'll start the patient on IV Solu-Medrol and monitor the blood sugars Recheck COVID 19 by PCR Recheck influenza screen and RSV screen by PCR Keep the patient IV heparin Continue aspirin Continue metoprolol 50 mg by mouth daily Echocardiogram Cardiology consultation he'll be Levemir insulin 25 units at bedtime in addition to 5 units of NovoLog with meals and a sliding scale coverage Continue anticoagulation with Eliquis We'll continue to follow
[2021-11-23] MEDS: amLODIPine 5 MG TAB PO SCH (12:25)
[2021-11-23] MEDS: methylPREDNISolone SOD SUCCI 125 MG/2 ML VIAL IV SCH ×3 (12:25→23:13)
[2021-11-23] MEDS: SODIUM BICARBONATE TAB 650 MG TAB PO SCH ×2 (12:25→21:50)
[2021-11-23] MEDS: OSELTAMIVIR 60 MG/10 ML ORAL SYRINGE PO SCH (12:27)
[2021-11-23] MEDS: IPRATROPIUM-ALBUTEROL 3 ML NEB INHALATION SCH ×2 (16:03→20:27)
--- NOTE | 2021-11-23 16:17 | P.PN ---
Subjective Progress Note Date: 11/23/21 Principal diagnosis: Influenza A, atrial fibrillation, acute kidney injury secondary to ATN Mr. Goncalves is somewhat improved today up in chair visiting with her son, O2 8 L per nasal cannula, still holding lisinopril, blood pressure controlled with metoprolol 50 mg daily hydralazine 25 mg 3 times a day, amlodipine 5 mg daily started by nephrology Patient otherwise states he is feeling somewhat better, pulmonary medicine started IV prednisone, continue [facility] [id number], reevaluating covid 19 by PCR, influenza by PCR and RSV ears nephrology also stopped metformin because of the acidosis reviewing the chart it looks like it was already stopped, but appears somewhat ambiguous, this patient's creatinine increased today we'll assess daily improvements, sugars well controlled at this time as well Objective - Vital Signs Vital signs: Vital Signs Temp 97.7 F 11/23/21 12:00 Pulse 76 11/23/21 16:03 Resp 20 11/23/21 12:49 BP 118/56 11/23/21 12:00 Pulse Ox 97 11/23/21 12:00 Intake & Output 11/22/21 11/23/21 11/23/21 18:59 06:59 18:59 Intake Total 734.098 120 240 Output Total 520 250 Balance 214.098 -130 240 Weight 71 kg 71 kg Intake: Intake, IV Titration 94.098 Amount Heparin Sod,Pork in 0.45% 94.098 NaCl 25,000 unit In 0.45 % NaCl 1 250ml.bag @ 12 UNITS/KG/HR 8.165 mls/hr IV .Q24H [facility] Rx#: [id number] Oral 640 120 240 Output: Urine 520 250 - Exam General: [Patient awake, alert and oriented times 3. Patient in no acute distr ess.] HEENT: [PERRL. EOMI. No pharyngeal erythema or exudate.] Neck: [No adenopathy.] Cardiac: [Heart regular in rate and rhythm. No S3. No S4. No clicks, rubs. No murmur.] Lungs: Bilateral breath sounds rhonchorous fair air exchange noted Abdomen: [No mass. No organomegaly. Bowel sounds presnt and normoactive in all 4 quadrants.] Extremes: [No edema no cyanosis no claudication normal pulses] : [] Musculoskeletal: [No joint erythema, edema or tenderness.] Skin: [No rash.] Neurologic: [No lateralizing deficits. CN II - XII grossly intact.] Lymphatic: [No adenopathy.] - Labs CBC & Chem 7: 11/22/21 05:42 11/23/21 08:04 Labs: Abnormal Lab Results - Last 24 Hours (Table) 11/22/21 11/22/21 11/22/21 Range/Units 16:51 20:37 22:21 APTT 43.3 H (22.0-30.0) sec Sodium (137-145) mmol/L Carbon Dioxide (22-30) mmol/L BUN (9-20) mg/dL Creatinine (0.66-1.25) mg/dL Glucose (74-99) mg/dL POC Glucose (mg/dL) 220 H 159 H (75-99) mg/dL 11/23/21 11/23/21 11/23/21 Range/Units 06:24 08:04 11:55 APTT (22.0-30.0) sec Sodium 136 L (137-145) mmol/L Carbon Dioxide 19 L (22-30) mmol/L BUN 103 H* (9-20) mg/dL Creatinine 3.12 H (0.66-1.25) mg/dL Glucose 150 H (74-99) mg/dL POC Glucose (mg/dL) 127 H 234 H (75-99) mg/dL Assessment and Plan (1) Hyperglycemia Current Visit: Yes Status: Acute Code(s): R73.9 - HYPERGLYCEMIA, UNSPECIFIED SNOMED Code(s): 80314611 (2) Influenza Current Visit: Yes Status: Acute Code(s): J11.1 - FLU DUE TO UNIDENTIFIED INFLUENZA VIRUS W OTH RESP MANIFEST SNOMED Code(s): 7055079 (3) Non-STEMI (non-ST elevated myocardial infarction) Current Visit: Yes Status: Acute Code(s): I21.4 - NON-ST ELEVATION (NSTEMI) MYOCARDIAL INFARCTION SNOMED Code(s): 67896497 Plan: Patient admitted to the hospital monitored bed Cardiology consultation obtained, pulmonary consult obtained, nephrology consult obtained Serial troponins performed Lisinopril held, metformin held, Patient started on oral sodium bicarbonate, amlodipine, hydralazine, and metoprolol for blood pressure This patient has improved Judicious rehydration Conservative therapy recommended Time with Patient: Greater than 30
[2021-11-23 16:37] LABS: Glucose,Whole Blood 159 mg/dL (75-99)
[2021-11-23 20:27] LABS: Glucose,Whole Blood 274 mg/dL (75-99)
[2021-11-23] MEDS: INSULIN DETEMIR (LEVEMIR) 100 UNIT/ML SYR SQ SCH (21:49)
[2021-11-23] MEDS: ATORVASTATIN 10 MG TAB PO SCH (21:49)
[2021-11-24] MEDS: methylPREDNISolone SOD SUCCI 125 MG/2 ML VIAL IV SCH ×4 (05:21→23:02)
[2021-11-24 06:08] LABS: Glucose,Whole Blood 99 mg/dL (75-99)
[2021-11-24] MEDS: INSULIN ASPART (NovoLOG) 100 UNIT/ML VIAL SQ SCH ×8 (06:15→21:00)
[2021-11-24] MEDS: glipiZIDE 10 MG TAB PO SCH (06:42)
[2021-11-24] MEDS: guaiFENesin-DM 600/30MG 1 EACH TAB.ER.12H PO SCH ×2 (08:24→21:00)
[2021-11-24] MEDS: hydrALAZINE HCL 25 MG TAB PO SCH ×3 (08:24→21:00)
[2021-11-24] MEDS: amLODIPine 5 MG TAB PO SCH (08:24)
[2021-11-24] MEDS: APIXABAN 2.5 MG TABLET PO SCH ×2 (08:24→21:00)
[2021-11-24] MEDS: PARoxetine 20 MG TAB PO SCH (08:24)
[2021-11-24] MEDS: ASPIRIN 81 MG PO SCH (08:25)
[2021-11-24] MEDS: METOPROLOL SUCCINATE (ER) 50 MG TAB.ER.24H PO SCH (08:25)
[2021-11-24] MEDS: SODIUM BICARBONATE TAB 650 MG TAB PO SCH ×2 (08:25→21:00)
--- NOTE | 2021-11-24 08:36 | XR ---
EXAMINATION TYPE: XR chest 1V DATE OF EXAM: 11/24/2021 COMPARISON: Chest x-ray 11/21/2021 HISTORY: Shortness of breath TECHNIQUE: Single frontal view of the chest is obtained. FINDINGS: Bilateral granulomatous changes again noted within the lungs and mediastinum. No evident p neumothorax or pleural effusion. Patchy airspace disease is present bilaterally towards the lung base s. Cardiac mediastinal silhouette is stable. Patient is post median sternotomy, multiple sternal wire s are fractured. Bones are stable, there are overlying artifacts. IMPRESSION: Correlate for pneumonia.
[2021-11-24] MEDS: IPRATROPIUM-ALBUTEROL 3 ML NEB INHALATION SCH ×4 (08:41→19:31)
--- NOTE | 2021-11-24 09:50 | P.PN ---
Subjective Patient is seen in follow-up for acute kidney injury on chronic kidney disease. Morning labs pending. Nonoliguric. Currently on 8 L high flow cannula. Feels better today. Oral intake poor. Vital signs are stable. HEENT: Head exam is unremarkable. LUNGS: Breath sounds decreased. HEART: Rate and Rhythm are regular. ABDOMEN: Soft, no distention. EXTREMITITES: No edema. Objective - Vital Signs Vital signs: Vital Signs Temp 97.9 F 11/24/21 08:20 Pulse 84 11/24/21 08:52 Resp 20 11/24/21 08:20 BP 149/66 11/24/21 08:20 Pulse Ox 98 11/24/21 08:20 Intake & Output 11/23/21 11/24/21 11/24/21 18:59 06:59 18:59 Intake Total 240 220 180 Output Total 725 Balance 240 -505 180 Weight 69.5 kg Intake: Oral 240 220 180 Output: Urine 725 - Labs CBC & Chem 7: 11/22/21 05:42 11/23/21 08:04 Labs: Abnormal Lab Results - Last 24 Hours (Table) 11/23/21 11/23/21 11/23/21 Range/Units 11:55 16:36 17:00 POC Glucose (mg/dL) 234 H 159 H (75-99) mg/dL Influenza Type A RNA Detected H (Not Detectd) 11/23/21 Range/Units 20:26 POC Glucose (mg/dL) 274 H (75-99) mg/dL Influenza Type A RNA (Not Detectd) Assessment and Plan Plan: Assessment: 1. Acute kidney injury secondary to ATN. Creatinine was 2.41 on admission and is 3.12 today - up to 3.12 yesterday. 2. Chronic kidney disease stage IIIB with creatinine 1.6 in October 2015. 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 No other records available. 3. History of bladder cancer status post urostomy. 4. Metabolic acidosis secondary to acute kidney injury. Was also on metformin. On oral bicarb. 5. Hypertension with chronic any disease. Stable. 6. Diabetes mellitus. 7. Influenza A infection. Plan: Continue to hold lisinopril. Avoid nephrotoxins. Check urinalysis. Follow-up morning labs. Continue to monitor renal function and urine output. Chest Xray is suggestive of pneumonia.
[2021-11-24 10:23] LABS: Calcium 8.8 mg/dL (8.4-10.2); Magnesium 2.2 mg/dL (1.6-2.3); Potassium 4.1 mmol/L (3.5-5.1)
[2021-11-24 12:01] LABS: Glucose,Whole Blood 382 mg/dL (75-99)
[2021-11-24 12:01] LABS: Glucose,Whole Blood 366 mg/dL (75-99)
[2021-11-24] MEDS: OSELTAMIVIR 60 MG/10 ML ORAL SYRINGE PO SCH (12:27)
--- NOTE | 2021-11-24 12:40 | P.PN ---
Subjective Progress Note Date: 11/24/21 HISTORY OF PRESENT ILLNESS: Patient is a pleasant 86-year-old male with history of prior stroke, persistent atrial fibrillation, diabetes mellitus type 2, hypertension, coronary artery disease status post CABG approximately 2001, previous tobacco abuse as well as with Dr. Smiley. Office notes are not currently available. He presents from [facility] where he presented with feeling some increased shortness of breath and fatigue and "going downhill" for last 4-5 days. He was diagnosed with influenza A however also found to have elevated troponin of 4.5. Trop was repeated here and it was 2.4, 2.1. He denies any significant chest pain, pressure, tightness. His creatinine is noted to be elevated 2.4, unclear baseline and also has elevated white count at 20. EKG shows atrial fibrillation with right bundle branch block, nonspecific ST, T-wave abnormalities. 11/23 Patient remains on high flow however states breathing is somewhat better. Apparently he was more confused overnight however no appears improving. Creatinine increased into the threes today and nephrology saw patient with lisinopril held and Amlodipine added. BP's have been controlled. Echo pending. Tele Afib with CVR. 11/24/2021 Patient examined this morning at the bedside. Patient denies chest pain or pressure. He reports mild shortness of breath. He is on 8L NC. Creatinine 3.25.Nephrology following. PHYSICAL EXAM: VITAL SIGNS: Reviewed. GENERAL: Well-developed in no acute distress. NECK: Supple. No JVD or thyromegaly LUNGS: Respirations even and unlabored. Lungs diminished to auscultation bilaterally. HEART: Irregular rate and rhythm. S1 and S2 heard. EXTREMITIES: Normal range of motion. No clubbing or cyanosis. Peripheral pulse s intact. No lower extremity edema ASSESSMENT: 1. Non-STEMI 2. Coronary artery disease status post CABG 3. Hypertension 4. Hyperlipidemia 5. Chronic kidney disease, unclear baseline 6. Persistent atrial fibrillation controlled ventricular rate 7. History of stroke 8. Diabetes mellitus 9. Leukocytosis 10. Influenza pneumonia PLAN: Continue current cardiac medications Continue with conservative management at this time 2D echo ordered. Await results. Further recommendations pending patient course Patient to follow up outpatient with Dr. Smiley Nurse practitioner note has been reviewed by physician. Signing provider agrees with the documented findings, assessment, and plan of care. Objective - Vital Signs Vital signs: Vital Signs Temp 97.9 F 11/24/21 08:20 Pulse 84 11/24/21 08:52 Resp 20 11/24/21 08:20 BP 149/66 11/24/21 08:20 Pulse Ox 98 11/24/21 08:20 Intake & Output 11/23/21 11/24/21 11/24/21 18:59 06:59 18:59 Intake Total 240 220 180 Output Total 725 Balance 240 -505 180 Weight 69.5 kg Intake: Oral 240 220 180 Output: Urine 725 - Labs CBC & Chem 7: 11/22/21 05:42 11/24/21 08:45 Labs: Abnormal Lab Results - Last 24 Hours (Table) 11/23/21 11/23/21 11/23/21 Range/Units 11:55 16:36 17:00 BUN (9-20) mg/dL Creatinine (0.66-1.25) mg/dL Glucose (74-99) mg/dL POC Glucose (mg/dL) 234 H 159 H (75-99) mg/dL Influenza Type A RNA Detected H (Not Detectd) 11/23/21 11/24/21 Range/Units 20:26 08:45 BUN 115 H* (9-20) mg/dL Creatinine 3.25 H (0.66-1.25) mg/dL Glucose 153 H (74-99) mg/dL POC Glucose (mg/dL) 274 H (75-99) mg/dL Influenza Type A RNA (Not Detectd)
--- NOTE | 2021-11-24 16:35 | ECHOF ---
Referral Reason:LV function MEASUREMENTS -------- HEIGHT: 175.3 cm WEIGHT: 69.4 kg BP: RVIDd: 3.4 cm (< 3.3) IVSd: 1.1 cm (0.6 - 1.1) LVIDd: 5.6 cm (3.9 - 5.3) LVPWd: 1.1 cm (0.6 - 1.1) IVSs: 1.9 cm LVIDs: 4.5 cm LVPWs: 1.5 cm LA Diam: 3.3 cm (2.7 - 3.8) LAESV Index (A-L): 26.16 ml/m Ao Diam: 4.2 cm (2.0 - 3.7) AV Cusp: 2.2 cm (1.5 - 2.6) MV EXCURSION: 14.924 mm (> 18.000) MV EF SLOPE: 46 mm/s (70 - 150) EPSS: 0.7 cm AV maxP.54 mmHg AV meanP.60 mmHg RAP: 15.00 mmHg RVSP: 44.20 mmHg FINDINGS -------- This was a technically adequate study. The left ventricular size is normal. There is borderline concentric left ventricular hypertrophy. Overall left ventricular systolic function is low-normal with, an EF between 50 - 55 %. Apical sep yanci LV wall motion is hypokinetic. The right ventricle is mildly enlarged. Normal LA size by volume 22+/-6 ml/m2. The right atrium is normal in size. Interatrial and interventricular septum intact. There is mild aortic valve sclerosis. Trace to mild aortic regurgitation. There is mild aortic st enosis present. Peak/mean gradient across the Aortic Valve is 10.54mmHg / 5.60mmHg. AOV area by p lanimetry 17 mm2 Mild mitral regurgitation is present. Mild tricuspid regurgitation present. There is mild pulmonary hypertension. The right ventricular systolic pressure, as measured by Doppler, is 44.20mmHg. Trace/mild (physiologic) pulmonic regurgitation. The aortic root is dilated measuring 4.2cm. Normal inferior vena cava with less than 50% inspiratory collapse consistent with estimated right atr ial pressure of 15 mmHg. There is no pericardial effusion. CONCLUSIONS -------- 1. The left ventricular size is normal. 2. There is borderline concentric left ventricular hypertrophy. 3. Overall left ventricular systolic function is low-normal with, an EF between 50 - 55 %. 4. Apical septum LV wall motion is hypokinetic. 5. The right ventricle is mildly enlarged. 6. There is mild aortic valve sclerosis. 7. Trace to mild aortic regurgitation. 8. There is mild aortic stenosis present. 9. Peak/mean gradient across the Aortic Valve is 10.54mmHg / 5.60mmHg. 10. AOV area by planimetry 17 mm2 11. Mild mitral regurgitation is present. 12. Mild tricuspid regurgitation present. 13. There is mild pulmonary hypertension. 14. The right ventricular systolic pressure, as measured by Doppler, is 44.20mmHg. 15. Trace/mild (physiologic) pulmonic regurgitation. 16. The aortic root is dilated measuring 4.2cm. 17. Normal inferior vena cava with less than 50% inspiratory collapse consistent with estimated right atrial pressure of 15 mmHg. 18. There is no pericardial effusion. MARRIAGE COUNSELOR: Chelly White RDCS
[2021-11-24 16:56] LABS: Glucose,Whole Blood 316 mg/dL (75-99)
--- NOTE | 2021-11-24 18:50 | P.PN ---
Subjective Progress Note Date: 11/24/21 Principal diagnosis: Respiratory failure. 86-year-old male patient was a transfer from the hospital because of worsening shortness of breath. The patient denies having any previous history of lung disease. He is known to have an extensive cardiac disease including coronary artery disease, previous bypass surgery, atrial fibrillation, chronic kidney disease, hypertension and hyperlipidemia and diabetes mellitus. The patient is not vaccinated for COVID 19. The patient started getting sick approximately 3-4 days ago. He was feeling exhausted and tired and fatigued and short of breath and congested. No documented fever. He was not having any chest pain. His troponin was found to be elevated at 4.5 highest and the repeat levels came back at 2.4 and 2.1. COVID 19 testing that was done in [facility] came back negative and the patient is not vaccinated. The patient however tested positive for influenza. He got transferred to the hospital for further ev aluation. His creatinine was elevated and the patient is known to have chronic kidney disease. He has white cell count at time of admission was 20.9. Creatinine was at 3.1. Sodium is at 136. Chest x-ray showed no acute pulmonary infiltrates. No altered mentation. No hemoptysis. No pleurisy. Cardiology will be evaluating the patient. The patient is currently on IV heparin. Echocardiac Antonio was also ordered. Progress note dated 11/24/2021. The patient is again seen in room 370. The patient's currently on 8 L high flow nasal O2, with saturations of 99%. He's not receiving any IV fluids. The patient's chest x-ray showed patchy bibasilar infiltrates. Laboratory data from today includes a normal sodium, potassium, chloride, and CO2. Anion gap is 13. BUN is 115 with a creatinine of 3.25. Glucose is 153. Chest x-ray from November 24 as above. Objective - Vital Signs Vital signs: Vital Signs Temp 98.2 F 11/24/21 17:00 Pulse 61 11/24/21 17:00 Resp 18 11/24/21 17:00 BP 177/72 11/24/21 17:00 Pulse Ox 100 11/24/21 17:00 Intake & Output 11/23/21 11/24/21 11/24/21 18:59 06:59 18:59 Intake Total 240 220 180 Output Total 725 500 Balance 240 -505 -320 Weight 69.5 kg Intake: Oral 240 220 180 Output: Urine 725 500 - Exam Mild conversational dyspnea, oriented 3. Currently on 8 L high flow nasal O2. Saturations are 99%. HEENT examination is grossly unremarkable. Mucous membranes are moist. No oral lesions. Neck supple. Full range of motion. No adenopathy thyromegaly or neck vein distention. Cardiovascular examination reveals regular rhythm rate. S1-S2 normal. No S3 or S4. No discernible murmur noted. Heart rate 82 bpm. Heart sounds are distant. Lungs reveal bilateral coarse rhonchi and expiratory wheezes. Scattered crackles are noted. Breath sounds are equal bilaterally. Abdomen soft bowel sounds are heard. No masses or tenderness. Extremities are intact. No cyanosis clubbing or edema. Skin is without rash or lesion. Neurologic examination is brief but nonfocal. - Labs CBC & Chem 7: 11/22/21 05:42 11/24/21 08:45 Labs: Abnormal Lab Results - Last 24 Hours (Table) 11/23/21 11/23/21 11/24/21 Range/Units 17:00 20:26 08:45 BUN 115 H* (9-20) mg/dL Creatinine 3.25 H (0.66-1.25) mg/dL Glucose 153 H (74-99) mg/dL POC Glucose (mg/dL) 274 H (75-99) mg/dL Influenza Type A RNA Detected H (Not Detectd) 11/24/21 11/24/21 11/24/21 Range/Units 11:59 12:00 16:55 BUN (9-20) mg/dL Creatinine (0.66-1.25) mg/dL Glucose (74-99) mg/dL POC Glucose (mg/dL) 382 H 366 H 316 H (75-99) mg/dL Influenza Type A RNA (Not Detectd) Assessment and Plan Assessment: Acute hypoxemic respiratory failure secondary to acute influenza. 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 Acute non-ST segment elevation myocardial infarction. Previous history of CAD, with bypass grafting. History of bladder cancer, status post cystectomy and urostomy. History of chronic kidney disease. Previous CVA. Type 2 diabetes mellitus. Plan: Plan dated 11/24/2021. The patient is maintained on 8 L high flow nasal O2. That can probably be weaned as the patient's saturations are 99%. The patient was placed on albu terol sulfate and ipratropium bromide, and started on Tamiflu, 75 mg twice a day. In addition, the patient was started on IV Solu-Medrol. The patient has been seen by cardiology. We'll continue to follow. Prognosis is guarded. Additional recommendations and suggestions where appropriate. Time with Patient: Less than 30
[2021-11-24 20:40] LABS: Glucose,Whole Blood 305 mg/dL (75-99)
[2021-11-24] MEDS: INSULIN DETEMIR (LEVEMIR) 100 UNIT/ML SYR SQ SCH (20:59)
[2021-11-24] MEDS: ATORVASTATIN 10 MG TAB PO SCH (21:00)
[2021-11-25] MEDS: INSULIN ASPART (NovoLOG) 100 UNIT/ML VIAL SQ SCH ×9 (05:58→21:02)
[2021-11-25 05:59] LABS: Glucose,Whole Blood 73 mg/dL (75-99)
[2021-11-25] MEDS: methylPREDNISolone SOD SUCCI 125 MG/2 ML VIAL IV SCH ×4 (06:05→23:04)
[2021-11-25] MEDS: glipiZIDE 10 MG TAB PO SCH (06:06)
[2021-11-25] MEDS: IPRATROPIUM-ALBUTEROL 3 ML NEB INHALATION SCH ×4 (08:17→19:55)
[2021-11-25 08:35] LABS: Calcium 8.7 mg/dL (8.4-10.2); Magnesium 2.3 mg/dL (1.6-2.3); Potassium 4.2 mmol/L (3.5-5.1)
--- NOTE | 2021-11-25 10:02 | P.PN ---
Subjective Patient is seen in follow-up for acute kidney injury on chronic kidney disease. Renal function better. Nonoliguric. Currently on 6 L high flow cannula. Oral intake improving. Overall feels better today compared to yesterday. Vital signs are stable. HEENT: Head exam is unremarkable. On nasal cannula. LUNGS: Breath sounds decreased. HEART: Rate and Rhythm are regular. ABDOMEN: Soft, no distention. EXTREMITITES: No edema. Objective - Vital Signs Vital signs: Vital Signs Temp 97.6 F 11/24/21 21:00 Pulse 64 11/25/21 08:28 Resp 17 11/25/21 03:45 BP 160/68 11/25/21 03:45 Pulse Ox 97 11/25/21 03:45 Intake & Output 11/24/21 11/25/21 11/25/21 18:59 06:59 18:59 Intake Total 180 Output Total 500 300 Balance -320 -300 Intake: Oral 180 Output: Urine 500 300 - Labs CBC & Chem 7: 11/22/21 05:42 11/25/21 07:39 Labs: Abnormal Lab Results - Last 24 Hours (Table) 11/24/21 11/24/21 11/24/21 Range/Units 08:45 11:59 12:00 BUN 115 H* (9-20) mg/dL Creatinine 3.25 H (0.66-1.25) mg/dL Glucose 153 H (74-99) mg/dL POC Glucose (mg/dL) 382 H 366 H (75-99) mg/dL 11/24/21 11/24/21 11/25/21 Range/Units 16:55 20:38 05:57 BUN (9-20) mg/dL Creatinine (0.66-1.25) mg/dL Glucose (74-99) mg/dL POC Glucose (mg/dL) 316 H 305 H 73 L (75-99) mg/dL 11/25/21 Range/Units 07:39 BUN 120 H* (9-20) mg/dL Creatinine 2.87 H (0.66-1.25) mg/dL Glucose 128 H (74-99) mg/dL POC Glucose (mg/dL) (75-99) mg/dL Assessment and Plan Plan: Assessment: 1. Acute kidney injury secondary to ATN. Creatinine peaked at 3.25 this admission and is 2.87 today. BUN elevated due to acute kidney injury as well as steroids. No evidence of GI bleed. 2. Chronic kidney disease stage IIIB with creatinine 1.6 in October 2015. 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 No other records available. 3. History of bladder cancer status post urostomy. 4. Metabolic acidosis secondary to acute kidney injury. Was also on metformin. On oral bicarb. 5. Hypertension with chronic any disease. Stable. 6. Diabetes mellitus. 7. Influenza A infection. Plan: Continue to hold lisinopril. Avoid nephrotoxins. Follow-up urinalysis. Check renal ultrasound. Continue to monitor renal function and urine output. Chest Xray is suggestive of pneumonia.
[2021-11-25] MEDS: METOPROLOL SUCCINATE (ER) 25 MG TAB.ER.24H PO SCH (10:34)
[2021-11-25] MEDS: guaiFENesin-DM 600/30MG 1 EACH TAB.ER.12H PO SCH ×2 (10:38→21:02)
[2021-11-25] MEDS: amLODIPine 5 MG TAB PO SCH (10:38)
[2021-11-25] MEDS: hydrALAZINE HCL 25 MG TAB PO SCH ×3 (10:38→21:01)
[2021-11-25] MEDS: ASPIRIN 81 MG PO SCH (10:38)
[2021-11-25] MEDS: PARoxetine 20 MG TAB PO SCH (10:38)
[2021-11-25] MEDS: SODIUM BICARBONATE TAB 650 MG TAB PO SCH ×2 (10:38→21:02)
[2021-11-25] MEDS: APIXABAN 2.5 MG TABLET PO SCH ×2 (10:38→21:01)
--- NOTE | 2021-11-25 11:11 | US ---
EXAMINATION TYPE: US kidneys/renal and bladder DATE OF EXAM: 11/25/2021 COMPARISON: US CLINICAL HISTORY: john. EXAM MEASUREMENTS: Right Kidney: 9.2 x 4.1 x 4.1 cm Left Kidney: 9.1 x 4.7 x 4.3 cm Patient scanned portable on the floor in his recliner. Cystectomy with bag on right. Right Kidney: limited visualization due to one acoustic window, limited views see no obvious abnormal ity, inferior pole obscured Left Kidney: limited visualization, inferior pole obscured, no hydro Bladder: surgically absent IMPRESSION: 1. Normal renal ultrasound as visualized.
[2021-11-25 11:59] LABS: Glucose,Whole Blood 289 mg/dL (75-99)
--- NOTE | 2021-11-25 12:16 | P.PN ---
Subjective Progress Note Date: 11/25/21 HISTORY OF PRESENT ILLNESS: Patient is a pleasant 86-year-old male with history of prior stroke, persistent atrial fibrillation, diabetes mellitus type 2, hypertension, coronary artery disease status post CABG approximately 2001, previous tobacco abuse as well as with Dr. Smiley. Office notes are not currently available. He presents from [facility] where he presented with feeling some increased shortness of breath and fatigue and "going downhill" for last 4-5 days. He was diagnosed with influenza A however also found to have elevated troponin of 4.5. Trop was repeated here and it was 2.4, 2.1. He denies any significant chest pain, pressure, tightness. His creatinine is noted to be elevated 2.4, unclear baseline and also has elevated white count at 20. EKG shows atrial fibrillation with right bundle branch block, nonspecific ST, T-wave abnormalities. 11/23 Patient remains on high flow however states breathing is somewhat better. Apparently he was more confused overnight however no appears improving. Creatinine increased into the threes today and nephrology saw patient with lisinopril held and Amlodipine added. BP's have been controlled. Echo pending. Tele Afib with CVR. 11/24/2021 Patient examined this morning at the bedside. Patient denies chest pain or pressure. He reports mild shortness of breath. He is on 8L NC. Creatinine 3.25.Nephrology following. 11/25/2021 Patient examined this morning at the bedside. Patient denies chest pain or pressure. Reports SOB. He remains on nasal cannula. Telemetry reveals atrial fibrillation with a heart rate in the 50s. Echocardiogram completed revealing ejection fraction 50-55%, apical septal LV wall hypokinesis, mild aortic regurgitation, mild aortic stenosis, mild mitral regurgitation, and mild tricuspid regurgitation. PHYSICAL EXAM: VITAL SIGNS: Reviewed. GENERAL: Well-developed in no acute distress. NECK: Supple. No JVD or thyromegaly LUNGS: Respirations even and unlabored. Lungs diminished to auscultation bilaterally. HEART: Irregular rate and rhythm. S1 and S2 heard. EXTREMITIES: Normal range of motion. No clubbing or cyanosis. Peripheral pulses intact. No lower extremity edema ASSESSMENT: 1. Non-STEMI 2. Coronary artery disease status post CABG 3. Hypertension 4. Hyperlipidemia 5. Chronic kidney disease, unclear baseline 6. Persistent atrial fibrillation controlled ventricular rate 7. History of stroke 8. Diabetes mellitus 9. Leukocytosis 10. Influenza pneumonia PLAN: Continue current cardiac medications Continue with conservative management at this time Decrease metoprolol to 25mg. Continue telemetry monitoring. Further recommendations pending patient course Patient to follow up outpatient with Dr. Smiley Nurse practitioner note has been reviewed by physician. Signing provider agrees with the documented findings, assessment, and plan of care. Objective - Vital Signs Vital signs: Vital Signs Temp 97.2 F L 11/25/21 10:35 Pulse 54 L 11/25/21 10:35 Resp 20 11/25/21 10:35 BP 138/64 11/25/21 10:35 Pulse Ox 98 11/25/21 10:35 Intake & Output 11/24/21 11/25/21 11/25/21 18:59 06:59 18:59 Intake Total 180 Output Total 500 300 Balance -320 -300 Intake: Oral 180 Output: Urine 500 300 - Labs CBC & Chem 7: 11/22/21 05:42 11/25/21 07:39 Labs: Abnormal Lab Results - Last 24 Hours (Table) 11/24/21 11/24/21 11/25/21 Range/Units 16:55 20:38 05:57 BUN (9-20) mg/dL Creatinine (0.66-1.25) mg/dL Glucose (74-99) mg/dL POC Glucose (mg/dL) 316 H 305 H 73 L (75-99) mg/dL 11/25/21 11/25/21 Range/Units 07:39 11:58 BUN 120 H* (9-20) mg/dL Creatinine 2.87 H (0.66-1.25) mg/dL Glucose 128 H (74-99) mg/dL POC Glucose (mg/dL) 289 H (75-99) mg/dL
[2021-11-25 12:34] LABS: Appearance,Urine Cloudy (Clear); Bacteria,Urine Rare /hpf; Bilirubin,Urine Negative (Negative); Blood,Urine Large (Negative); Color,Urine Yellow; Glucose,Urine (UA) Trace (Negative); Ketones,Urine Negative (Negative); Leukocyte Esterase,Urine Negative (Negative); Mucus,Urine Rare /hpf; Nitrite,Urine Negative (Negative); Protein,Urine 1+ (Negative); RBC,Urine 155 /hpf (0-5); Specific Gravity,Urine 1.017 (1.001-1.035); Urobilinogen,Urine <2.0 mg/dL (<2.0); WBC,Urine 8 /hpf (0-5)
[2021-11-25] MEDS: OSELTAMIVIR 60 MG/10 ML ORAL SYRINGE PO SCH (14:02)
--- NOTE | 2021-11-25 16:04 | P.PN ---
Subjective Progress Note Date: 11/25/21 Principal diagnosis: Respiratory failure. 86-year-old male patient was a transfer from the hospital because of worsening shortness of breath. The patient denies having any previous history of lung disease. He is known to have an extensive cardiac disease including coronary artery disease, previous bypass surgery, atrial fibrillation, chronic kidney disease, hypertension and hyperlipidemia and diabetes mellitus. The patient is not vaccinated for COVID 19. The patient started getting sick approximately 3-4 days ago. He was feeling exhausted and tired and fatigued and short of breath and congested. No documented fever. He was not having any chest pain. His troponin was found to be elevated at 4.5 highest and the repeat levels came back at 2.4 and 2.1. COVID 19 testing that was done in [facility] came back negative and the patient is not vaccinated. The patient however tested positive for influenza. He got transferred to the hospital for further ev aluation. His creatinine was elevated and the patient is known to have chronic kidney disease. He has white cell count at time of admission was 20.9. Creatinine was at 3.1. Sodium is at 136. Chest x-ray showed no acute pulmonary infiltrates. No altered mentation. No hemoptysis. No pleurisy. Cardiology will be evaluating the patient. The patient is currently on IV heparin. Echocardiac Antonio was also ordered. Progress note dated 11/24/2021. The patient is again seen in room 370. The patient's currently on 8 L high flow nasal O2, with saturations of 99%. He's not receiving any IV fluids. The patient's chest x-ray showed patchy bibasilar infiltrates. Laboratory data from today includes a normal sodium, potassium, chloride, and CO2. Anion gap is 13. BUN is 115 with a creatinine of 3.25. Glucose is 153. Chest x-ray from November 24 as above. Progress note dated 11/25/2021. The patient is again seen in room 370. Currently, he's on 6 L high flow nasal cannula. He's not receiving any IV fluids. His saturations are in the mid 90s. Yesterday, he was on 8 L high flow nasal cannula. Clinically, he appears relatively stable. He does have shortness of breath on exertion. Chest x-ray was reviewed. Today's labs include a sodium 139, potassium 4.2, chlorides 104, CO2 25, anion gap 10, BUN 120, and creatinine 2.87. Objective - Vital Signs Vital signs: Vital Signs Temp 97.3 F L 11/25/21 14:00 Pulse 55 L 11/25/21 14:00 Resp 16 11/25/21 14:00 BP 159/69 11/25/21 14:00 Pulse Ox 97 11/25/21 14:00 Intake & Output 11/24/21 11/25/21 11/25/21 18:59 06:59 18:59 Intake Total 180 118 Output Total 500 300 750 Balance -158 -300 -062 Intake: Oral 180 118 Output: Urine 500 300 750 - Exam Mild conversational dyspnea, oriented 3. Currently on 6 L high flow nasal O2. Saturations are 97%. HEENT examination is grossly unremarkable. Neck supple. Full range of motion. No adenopathy thyromegaly or neck vein distention. Cardiovascular examination reveals regular rhythm rate. S1-S2 normal. No S3 or S4. No discernible murmur noted. Heart rate 55 bpm. Heart sounds are distant. Lungs reveal bilateral coarse rhonchi and expiratory wheezes. Scattered crackles are noted. Breath sounds are equal bilaterally. Breath sounds are mildly improved. Abdomen soft bowel sounds are heard. No masses or tenderness. Extremities are intact. No cyanosis clubbing or edema. Skin is without rash or lesion. Neurologic examination is brief but nonfocal. - Labs CBC & Chem 7: 11/22/21 05:42 11/25/21 07:39 Labs: Abnormal Lab Results - Last 24 Hours (Table) 10/25/21 11/24/21 11/24/21 Range/Units 12:01 16:55 20:38 BUN (9-20) mg/dL Creatinine (0.66-1.25) mg/dL Glucose (74-99) mg/dL POC Glucose (mg/dL) 316 H 305 H (75-99) mg/dL Urine Protein 1+ H (Negative) Urine Glucose (UA) Trace H (Negative) Urine Blood Large H (Negative) Urine RBC 155 H (0-5) /hpf Urine WBC 8 H (0-5) /hpf Urine Bacteria Rare H (None) /hpf Urine Mucus Rare H (None) /hpf 11/25/21 11/25/21 11/25/21 Range/Units 05:57 07:39 11:58 BUN 120 H* (9-20) mg/dL Creatinine 2.87 H (0.66-1.25) mg/dL Glucose 128 H (74-99) mg/dL POC Glucose (mg/dL) 73 L 289 H (75-99) mg/dL Urine Protein (Negative) Urine Glucose (UA) (Negative) Urine Blood (Negative) Urine RBC (0-5) /hpf Urine WBC (0-5) /hpf Urine Bacteria (None) /hpf Urine Mucus (None) /hpf Assessment and Plan Assessment: Acute hypoxemic respiratory failure secondary to acute influenza. Bilateral pulmonary microcalcifications, consistent with old varicella pneum onia. Acute non-ST segment elevation myocardial infarction. Previous history of CAD, with bypass grafting. History of bladder cancer, status post cystectomy and urostomy. History of chronic kidney disease. Previous CVA. Type 2 diabetes mellitus. Plan: Plan dated 11/24/2021. The patient is maintained on 8 L high flow nasal O2. That can probably be weaned as the patient's saturations are 99%. The patient was placed on albuterol sulfate and ipratropium bromide, and started on Tamiflu, 75 mg twice a day. In addition, the patient was started on IV Solu-Medrol. The patient has been seen by cardiology. We'll continue to follow. Prognosis is guarded. Additional recommendations and suggestions where appropriate. Plan dated 11/25/2021. The patient is maintained on 6 L high flow nasal cannula. Clinically, the patient appears to be doing bit better. His saturations are in the mid 90s to high 90s. The patient is on DuoNeb, and Tamiflu. Labs, x-rays, and medications are reviewed. The patient was started on corticosteroids. His oxygenation has improved. Additional recommendations and suggestions are forthcoming. Prognosis is guarded. We will continue to follow this patient, and make recommendations where appropriate. Time with Patient: Less than 30
[2021-11-25 16:52] LABS: Glucose,Whole Blood 320 mg/dL (75-99)
--- NOTE | 2021-11-25 17:28 | P.PN ---
Subjective Progress Note Date: 11/24/21 Influenza A, atrial fibrillation, acute kidney injury secondary to ATN Acute non-STEMI, conservative treatment Diabetes mellitus, hyperglycemic, steroid-induced Mr. Goncalves is somewhat improved today up in chair visiting with her son, O2 8 L per nasal cannula, still holding lisinopril, blood pressure controlled with metoprolol 50 mg daily hydralazine 25 mg 3 times a day, amlodipine 5 mg daily started by nephrology Patient otherwise states he is feeling somewhat better, pulmonary medicine started IV prednisone, continue DuoNeb updrafts [id number], reevaluating covid 19 by PCR, influenza by PCR and RSV ears nephrology also stopped metformin because of the acidosis reviewing the chart it looks like it was already stopped, but appears somewhat ambiguous, this patient's creatinine increased today we'll assess daily improvements, sugars well controlled at this time as well 11/24/2021 currently at 8 L high flow nasal cannula maintaining O2 sats in the high 90s. Chest x-ray reporting bilateral granulomatous changes within the lungs and mediastinum, patchy bilateral airspace disease towards lung bases, possible pneumonia-further review as per pulmonary pending .afebrile .poor diet intake .Creatinine worsening up to 3.25. Telemetry reporting atrial fibrillation, heart rates 40s to 70s. Echo pending. Evaluated by cardiology recommending conservative treatment. Objective - Vital Signs Vital signs: Vital Signs Temp 97.9 F 11/24/21 08:20 Pulse 84 11/24/21 08:52 Resp 20 11/24/21 08:20 BP 149/66 11/24/21 08:20 Pulse Ox 98 11/24/21 08:20 Intake & Output 11/23/21 11/24/21 11/24/21 18:59 06:59 18:59 Intake Total 240 220 180 Output Total 725 Balance 240 -505 180 Weight 69.5 kg Intake: Oral 240 220 180 Output: Urine 725 - Exam - Exam General: [Patient awake, alert and oriented times 3. Respiratory effort increased HEENT: [PERRL. EOMI. No pharyngeal erythema or exudate.] Neck: Supple Cardiac: [Heart irregular in rate and rhythm. No S3. No S4. No clicks, rubs. No murmur. Bradycardic] Lungs: Bilateral breath sounds rhonchorous fair air exchange noted, scattered crackles and expiratory wheezing Abdomen: [No mass. No organomegaly. Bowel sounds presnt and normoactive in all 4 quadrants.] Extremes: [No edema no cyanosis no claudication normal pulses] Skin: [Normal dry, No rash.] Neurologic: [No lateralizing deficits. CN II - XII grossly intact.] - Labs CBC & Chem 7: 11/22/21 05:42 11/25/21 07:39 Labs: Abnormal Lab Results - Last 24 Hours (Table) 11/23/21 11/23/21 11/23/21 Range/Units 11:55 16:36 17:00 BUN (9-20) mg/dL Creatinine (0.66-1.25) mg/dL Glucose (74-99) mg/dL POC Glucose (mg/dL) 234 H 159 H (75-99) mg/dL Influenza Type A RNA Detected H (Not Detectd) 11/23/21 11/24/21 Range/Units 20:26 08:45 BUN 115 H* (9-20) mg/dL Creatinine 3.25 H (0.66-1.25) mg/dL Glucose 153 H (74-99) mg/dL POC Glucose (mg/dL) 274 H (75-99) mg/dL Influenza Type A RNA (Not Detectd) Assessment and Plan Assessment: Acute NSTEMI, conservative management Acute Influenza A ,bronchitis Acute hypoxic respiratory failure secondary to the above Abnormal chest x-ray, 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 Close monitoring of renal function, avoiding nephrotoxins. Aggressive pulmonary toileting, Tamiflu, IV steroids. Close monitoring of blood sugars, fluctuating, 99 this morning, afternoon Accu-Chek pending. Conservative management as per cardiology/ echo pending. Son at bedside, encouraged to bring in food from outside that patient might like, his diet intake poor. The impression and plan of care has been dictated as directed. : I performed a history and examination of this patient, discussed the same with the dictator. I agree with the dictator's note ,documented as a scribe. Any additional findings or plans will be noted.
--- NOTE | 2021-11-25 17:41 | P.PN ---
Subjective Progress Note Date: 11/25/21 Mr. Goncalves is somewhat improved today up in chair visiting with her son, O2 8 L per nasal cannula, still holding lisinopril, blood pressure controlled with metoprolol 50 mg daily hydralazine 25 mg 3 times a day, amlodipine 5 mg daily started by nephrology Patient otherwise states he is feeling somewhat better, pulmonary medicine started IV prednisone, continue [facility]oNeb [facility] [id number], reevaluating covid 19 by PCR, influenza by PCR and RSV ears nephrology also stopped metformin because of the acidosis reviewing the chart it looks like it was already stopped, but appears somewhat ambiguous, this patient's creatinine increased today we'll assess daily improvements, sugars well controlled at this time as well 11/24/2021 currently at 8 L high flow nasal cannula maintaining O2 sats in the high 90s. Chest x-ray reporting bilateral granulomatous changes within the lungs and mediastinum, patchy bilateral airspace disease towards lung bases, possible pneumonia-further review as per pulmonary pending .afebrile .poor diet intake .Creatinine worsening up to 3.25. Telemetry reporting atrial fibrillation, heart rates 40s to 70s. Echo pending. Evaluated by cardiology recommending conservative treatment. 11/25/2021 oxygen requirements lessening, down to 6 L high flow nasal cannula, maintaining O2 sats in the 90s. Afebrile. Denies chest pain, palpitations. Telemetry atrial fibrillation, bradycardic. Echo reporting EF 50-55%, apical septal LV wall hypokinetic; beta lana held today with dose decreased during tomorrow as per cardiology. Diet intake failure, patient was able to consume some of the [place] that son brought in. BUN 120, creatinine 2.87. Renal ultrasound pending. Hyperglycemic.Feels better today, sitting up in chair. Objective - Vital Signs Vital signs: Vital Signs Temp 97.3 F L 11/25/21 14:00 Pulse 56 L 11/25/21 17:03 Resp 16 11/25/21 14:00 BP 159/69 11/25/21 14:00 Pulse Ox 97 11/25/21 14:00 Intake & Output 11/24/21 11/25/21 11/25/21 18:59 06:59 18:59 Intake Total 180 118 Output Total 500 300 750 Balance -320 300 -632 Intake: Oral 180 118 Output: Urine 500 300 750 - Exam - Exam General: [Patient awake, alert and oriented times 3,Sitting up in chair, no acute distress HEENT: [PERRL. EOMI. No pharyngeal erythema or exudate.] Neck: Supple Cardiac: [Heart irregular in rate and rhythm. No S3. No S4. No clicks, rubs. No murmur. Bradycardic] Lungs: Bilateral breath sounds rhonchorous fair air exchange noted, scattered crackles and expiratory wheezing Abdomen: [No mass. No organomegaly. Bowel sounds presnt and normoactive in all 4 quadrants.] Extremes: [No edema no cyanosis no claudication normal pulses] Skin: [Normal dry, No rash.] Neurologic: [No lateralizing deficits. CN II - XII grossly intact.] - Labs CBC & Chem 7: 11/22/21 05:42 11/25/21 07:39 Labs: Abnormal Lab Results - Last 24 Hours (Table) 10/25/21 11/24/21 11/25/21 Range/Units 12:01 20:38 05:57 BUN (9-20) mg/dL Creatinine (0.66-1.25) mg/dL Glucose (74-99) mg/dL POC Glucose (mg/dL) 305 H 73 L (75-99) mg/dL Urine Protein 1+ H (Negative) Urine Glucose (UA) Trace H (Negative) Urine Blood Large H (Negative) Urine RBC 155 H (0-5) /hpf Urine WBC 8 H (0-5) /hpf Urine Bacteria Rare H (None) /hpf Urine Mucus Rare H (None) /hpf 11/25/21 11/25/21 11/25/21 Range/Units 07:39 11:58 16:48 BUN 120 H* (9-20) mg/dL Creatinine 2.87 H (0.66-1.25) mg/dL Glucose 128 H (74-99) mg/dL POC Glucose (mg/dL) 289 H 320 H (75-99) mg/dL Urine Protein (Negative) Urine Glucose (UA) (Negative) Urine Blood (Negative) Urine RBC (0-5) /hpf Urine WBC (0-5) /hpf Urine Bacteria (None) /hpf Urine Mucus (None) /hpf Assessment and Plan Assessment: Acute NSTEMI, conservative management Acute Influenza A ,bronchitis Acute hypoxic respiratory failure secondary to the above Abnormal chest x-ray, Consistent with old varicella pneumonia per pulmonary Acute kidney injury secondary to ATN Chronic kidney disease stage IIIB, baseline creatinine 1.6 Diabetes mellitus with Hyperglycemia CAD, history of CABG Former nicotine dependence History of bladder CA with urostomy Plan: Continue on current medication regime ,monitoring and symptomatic victor m tment. Premeal and long acting insulins adjusted. Close monitoring of accucheks. Maintain aggressive pulmonary toileting, Tamiflu, IV steroids.Renal US pending. DC planning in progress for [facility]O pending Pulmonary and nephrology clearance. The impression and plan of care has been dictated as directed. : I performed a history and examination of this patient, discussed the same with the dictator. I agree with the dictator's note ,documented as a scribe. Any additional findings or plans will be noted.
[2021-11-25 20:00] LABS: Glucose,Whole Blood 395 mg/dL (75-99)
[2021-11-25] MEDS: ATORVASTATIN 10 MG TAB PO SCH (21:02)
[2021-11-25] MEDS: INSULIN DETEMIR (LEVEMIR) 100 UNIT/ML SYR SQ SCH (21:02)
[2021-11-26 02:03] LABS: Glucose,Whole Blood 260 mg/dL (75-99)
[2021-11-26 06:16] LABS: Glucose,Whole Blood 216 mg/dL (75-99)
[2021-11-26] MEDS: glipiZIDE 10 MG TAB PO SCH (06:32)
[2021-11-26] MEDS: INSULIN ASPART (NovoLOG) 100 UNIT/ML VIAL SQ SCH ×8 (06:33→20:44)
[2021-11-26] MEDS: methylPREDNISolone SOD SUCCI 125 MG/2 ML VIAL IV SCH ×2 (06:34→11:10)
[2021-11-26 08:18] LABS: Calcium 8.4 mg/dL (8.4-10.2); Magnesium 2.2 mg/dL (1.6-2.3); Potassium 4.1 mmol/L (3.5-5.1)
--- NOTE | 2021-11-26 09:34 | P.PN ---
Subjective Patient is seen in follow-up for acute kidney injury on chronic kidney disease. Renal function better. Nonoliguric. Currently on 6 L high flow cannula. Oral intake fair. Resting in bed. No active complaints. Vital signs are stable. HEENT: Head exam is unremarkable. On nasal cannula. LUNGS: Breath sounds decreased. HEART: Rate and Rhythm are regular. ABDOMEN: Soft, no distention. EXTREMITITES: No edema. Objective - Vital Signs Vital signs: Vital Signs Temp 98.9 F 11/26/21 07:45 Pulse 51 L 11/26/21 07:45 Resp 19 11/26/21 07:45 BP 168/73 11/26/21 07:45 Pulse Ox 95 11/26/21 07:45 Intake & Output 11/25/21 11/26/21 11/26/21 18:59 06:59 18:59 Intake Total 118 Output Total 750 400 Balance -632 -400 Intake: Oral 118 Output: Urine 750 400 - Labs CBC & Chem 7: 11/22/21 05:42 11/26/21 07:13 Labs: Abnormal Lab Results - Last 24 Hours (Table) 10/25/21 11/25/21 11/25/21 Range/Units 12:01 05:42 11:58 BUN (9-20) mg/dL Creatinine (0.66-1.25) mg/dL Glucose (74-99) mg/dL POC Glucose (mg/dL) 289 H (75-99) mg/dL Hemoglobin A1c 7.6 H (4.0-6.0) % Urine Protein 1+ H (Negative) Urine Glucose (UA) Trace H (Negative) Urine Blood Large H (Negative) Urine RBC 155 H (0-5) /hpf Urine WBC 8 H (0-5) /hpf Urine Bacteria Rare H (None) /hpf Urine Mucus Rare H (None) /hpf 11/25/21 11/25/21 11/26/21 Range/Units 16:48 19:58 02:01 BUN (9-20) mg/dL Creatinine (0.66-1.25) mg/dL Glucose (74-99) mg/dL POC Glucose (mg/dL) 320 H 395 H 260 H (75-99) mg/dL Hemoglobin A1c (4.0-6.0) % Urine Protein (Negative) Urine Glucose (UA) (Negative) Urine Blood (Negative) Urine RBC (0-5) /hpf Urine WBC (0-5) /hpf Urine Bacteria (None) /hpf Urine Mucus (None) /hpf 11/26/21 11/26/21 Range/Units 06:14 07:13 BUN 122 H* (9-20) mg/dL Creatinine 2.55 H (0.66-1.25) mg/dL Glucose 176 H (74-99) mg/dL POC Glucose (mg/dL) 216 H (75-99) mg/dL Hemoglobin A1c (4.0-6.0) % Urine Protein (Negative) Urine Glucose (UA) (Negative) Urine Blood (Negative) Urine RBC (0-5) /hpf Urine WBC (0-5) /hpf Urine Bacteria (None) /hpf Urine Mucus (None) /hpf Assessment and Plan Plan: Assessment: 1. Acute kidney injury secondary to ATN. Creatinine peaked at 3.25 this admission and is 2.55 today. No hydronephrosis noted on kidney ultrasound. BUN elevated due to acute kidney injury as well as steroids. No evidence of GI bleed. 2. Chronic kidney disease stage IIIB with creatinine 1.6 in October 2015. 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 No other records available. 3. History of bladder cancer status post urostomy. 4. Metabolic acidosis secondary to acute kidney injury. Was also on metformin. On oral bicarb. 5. Hypertension with chronic any disease. 6. Diabetes mellitus. 7. Influenza A infection. Plan: Continue to hold lisinopril. Dose of hydralazine increased. Avoid nephrotoxins. Continue to monitor renal function and urine output. Chest Xray is suggestive of pneumonia.
[2021-11-26] MEDS: IPRATROPIUM-ALBUTEROL 3 ML NEB INHALATION SCH ×4 (10:50→21:19)
[2021-11-26] MEDS: METOPROLOL SUCCINATE (ER) 25 MG TAB.ER.24H PO SCH (11:08)
[2021-11-26] MEDS: SODIUM BICARBONATE TAB 650 MG TAB PO SCH ×2 (11:10→20:42)
[2021-11-26] MEDS: OSELTAMIVIR 60 MG/10 ML ORAL SYRINGE PO SCH (11:10)
[2021-11-26] MEDS: amLODIPine 5 MG TAB PO SCH (11:10)
[2021-11-26] MEDS: ASPIRIN 81 MG PO SCH (11:10)
[2021-11-26] MEDS: APIXABAN 2.5 MG TABLET PO SCH ×2 (11:10→20:43)
[2021-11-26] MEDS: PARoxetine 20 MG TAB PO SCH (11:10)
[2021-11-26] MEDS: hydrALAZINE HCL 25 MG TAB PO SCH (11:18)
[2021-11-26 11:41] LABS: Glucose,Whole Blood 135 mg/dL (75-99)
--- NOTE | 2021-11-26 12:11 | P.PN ---
Subjective Progress Note Date: 11/26/21 HISTORY OF PRESENT ILLNESS: Patient is a pleasant 86-year-old male with history of prior stroke, persistent atrial fibrillation, diabetes mellitus type 2, hypertension, coronary artery disease status post CABG approximately 2001, previous tobacco abuse as well as with Dr. Smiley. Office notes are not currently available. He presents from [facility] where he presented with feeling some increased shortness of breath and fatigue and "going downhill" for last 4-5 days. He was diagnosed with influenza A however also found to have elevated troponin of 4.5. Trop was repeated here and it was 2.4, 2.1. He denies any significant chest pain, pressure, tightness. His creatinine is noted to be elevated 2.4, unclear baseline and also has elevated white count at 20. EKG shows atrial fibrillation with right bundle branch block, nonspecific ST, T-wave abnormalities. 11/23 Patient remains on high flow however states breathing is somewhat better. Apparently he was more confused overnight however no appears improving. Creatinine increased into the threes today and nephrology saw patient with lisinopril held and Amlodipine added. BP's have been controlled. Echo pending. Tele Afib with CVR. 11/24/2021 Patient examined this morning at the bedside. Patient denies chest pain or pressure. He reports mild shortness of breath. He is on 8L NC. Creatinine 3.25.Nephrology following. 11/25/2021 Patient examined this morning at the bedside. Patient denies chest pain or pressure. Reports SOB. He remains on nasal cannula. Telemetry reveals atrial fibrillation with a heart rate in the 50s. Echocardiogram completed revealing ejection fraction 50-55%, apical septal LV wall hypokinesis, mild aortic regurgitation, mild aortic stenosis, mild mitral regurgitation, and mild tricuspid regurgitation. 11/26/2021 Patient examined this morning at the bedside. Patient denies chest pain or pressure. He continues to report mild shortness of breath. He remains on nasal cannula 6 L/m. Telemetry reviewed revealing atrial fibrillation. His heart rate remains in the 50s. PHYSICAL EXAM: VITAL SIGNS: Reviewed. GENERAL: Well-developed in no acute distress. NECK: Supple. No JVD or thyromegaly LUNGS: Respirations even and unlabored. Lungs diminished to auscultation bilaterally. HEART: Irregular rate and rhythm. S1 and S2 heard. EXTREMITIES: Normal range of motion. No clubbing or cyanosis. Peripheral pulses intact. No lower extremity edema ASSESSMENT: 1. Non-STEMI 2. Coronary artery disease status post CABG 3. Hypertension 4. Hyperlipidemia 5. Chronic kidney disease, unclear baseline 6. Persistent atrial fibrillation controlled ventricular rate 7. History of stroke 8. Diabetes mellitus 9. Leukocytosis 10. Influenza pneumonia PLAN: Continue current cardiac medications Continue with conservative management at this time No further inpatient recommendations from a cardiac standpoint We will sign off. Please reconsult if needed. Nurse practitioner note has been reviewed by physician. Signing provider agrees with the documented findings, assessment, and plan of care. Objective - Vital Signs Vital signs: Vital Signs Temp 98.9 F 11/26/21 07:45 Pulse 51 L 11/26/21 07:45 Resp 19 11/26/21 07:45 BP 168/73 11/26/21 07:45 Pulse Ox 95 11/26/21 07:45 Intake & Output 11/25/21 11/26/21 11/26/21 18:59 06:59 18:59 Intake Total 118 Output Total 750 400 Balance -632 -400 Intake: Oral 118 Output: Urine 750 400 - Labs CBC & Chem 7: 11/22/21 05:42 11/26/21 07:13 Labs: Abnormal Lab Results - Last 24 Hours (Table) 10/25/21 11/25/21 11/25/21 Range/Units 12:01 05:42 16:48 BUN (9-20) mg/dL Creatinine (0.66-1.25) mg/dL Glucose (74-99) mg/dL POC Glucose (mg/dL) 320 H (75-99) mg/dL Hemoglobin A1c 7.6 H (4.0-6.0) % Urine Protein 1+ H (Negative) Urine Glucose (UA) Trace H (Negative) Urine Blood Large H (Negative) Urine RBC 155 H (0-5) /hpf Urine WBC 8 H (0-5) /hpf Urine Bacteria Rare H (None) /hpf Urine Mucus Rare H (None) /hpf 11/25/21 11/26/21 11/26/21 Range/Units 19:58 02:01 06:14 BUN (9-20) mg/dL Creatinine (0.66-1.25) mg/dL Glucose (74-99) mg/dL POC Glucose (mg/dL) 395 H 260 H 216 H (75-99) mg/dL Hemoglobin A1c (4.0-6.0) % Urine Protein (Negative) Urine Glucose (UA) (Negative) Urine Blood (Negative) Urine RBC (0-5) /hpf Urine WBC (0-5) /hpf Urine Bacteria (None) /hpf Urine Mucus (None) /hpf 11/26/21 11/26/21 Range/Units 07:13 11:40 BUN 122 H* (9-20) mg/dL Creatinine 2.55 H (0.66-1.25) mg/dL Glucose 176 H (74-99) mg/dL POC Glucose (mg/dL) 135 H (75-99) mg/dL Hemoglobin A1c (4.0-6.0) % Urine Protein (Negative) Urine Glucose (UA) (Negative) Urine Blood (Negative) Urine RBC (0-5) /hpf Urine WBC (0-5) /hpf Urine Bacteria (None) /hpf Urine Mucus (None) /hpf
--- NOTE | 2021-11-26 15:39 | P.PN ---
Subjective Progress Note Date: 11/26/21 Principal diagnosis: Respiratory failure. 86-year-old male patient was a transfer from the hospital because of worsening shortness of breath. The patient denies having any previous history of lung disease. He is known to have an extensive cardiac disease including coronary artery disease, previous bypass surgery, atrial fibrillation, chronic kidney disease, hypertension and hyperlipidemia and diabetes mellitus. The patient is not vaccinated for COVID 19. The patient started getting sick approximately 3-4 days ago. He was feeling exhausted and tired and fatigued and short of breath and congested. No documented fever. He was not having any chest pain. His troponin was found to be elevated at 4.5 highest and the repeat levels came back at 2.4 and 2.1. COVID 19 testing that was done in [facility] came back negative and the patient is not vaccinated. The patient however tested positive for influenza. He got transferred to the hospital for further ev aluation. His creatinine was elevated and the patient is known to have chronic kidney disease. He has white cell count at time of admission was 20.9. Creatinine was at 3.1. Sodium is at 136. Chest x-ray showed no acute pulmonary infiltrates. No altered mentation. No hemoptysis. No pleurisy. Cardiology will be evaluating the patient. The patient is currently on IV heparin. Echocardiac Antonio was also ordered. Progress note dated 11/24/2021. The patient is again seen in room 370. The patient's currently on 8 L high flow nasal O2, with saturations of 99%. He's not receiving any IV fluids. The patient's chest x-ray showed patchy bibasilar infiltrates. Laboratory data from today includes a normal sodium, potassium, chloride, and CO2. Anion gap is 13. BUN is 115 with a creatinine of 3.25. Glucose is 153. Chest x-ray from November 24 as above. Progress note dated 11/25/2021. The patient is again seen in room 370. Currently, he's on 6 L high flow nasal cannula. He's not receiving any IV fluids. His saturations are in the mid 90s. Yesterday, he was on 8 L high flow nasal cannula. Clinically, he appears relatively stable. He does have shortness of breath on exertion. Chest x-ray was reviewed. Today's labs include a sodium 139, potassium 4.2, chlorides 104, CO2 25, anion gap 10, BUN 120, and creatinine 2.87. Progress note dated 11/26/2021. The patient is again seen in room 370. He is 86 years of age. He remains on nasal O2 at 6 L. Not receiving any IV fluids. Saturations are in the mid 90s. He looks clinically stable. Labs today include a sodium 137, potassium 4.1, chlorides 102, CO2 24, anion gap 11, BUN 122, and creatinine 2.55. The patient's Solu-Medrol was reduced down to 40 mg IV push every 6 hours. Objective - Vital Signs Vital signs: Vital Signs Temp 97.7 F 11/26/21 12:00 Pulse 56 L 11/26/21 14:00 Resp 17 11/26/21 14:00 BP 161/70 11/26/21 12:00 Pulse Ox 99 11/26/21 12:00 Intake & Output 11/25/21 11/26/21 11/26/21 18:59 06:59 18:59 Intake Total 118 Output Total 750 400 300 Balance -632 -400 -300 Intake: Oral 118 Output: Urine 750 400 300 - Exam Mild conversational dyspnea, oriented 3. Currently on 6 L high flow nasal O2. Saturations are 99%. HEENT examination is grossly unremarkable. Neck supple. Full range of motion. No adenopathy thyromegaly or neck vein distention. Cardiovascular examination reveals regular rhythm rate. S1-S2 normal. No S3 or S4. No discernible murmur noted. Heart rate 56 bpm. Heart sounds are distant. Lungs reveal bilateral coarse rhonchi and expiratory wheezes. Scattered crackles are noted. Breath sounds are equal bilaterally. Breath sounds are mildly improved. Abdomen soft bowel sounds are heard. No masses or tenderness. Extremities are intact. No cyanosis clubbing or edema. Skin is without rash or lesion. Neurologic examination is brief but nonfocal. - Labs CBC & Chem 7: 11/22/21 05:42 11/26/21 07:13 Labs: Abnormal Lab Results - Last 24 Hours (Table) 11/25/21 11/25/21 11/25/21 Range/Units 05:42 16:48 19:58 BUN (9-20) mg/dL Creatinine (0.66-1.25) mg/dL Glucose (74-99) mg/dL POC Glucose (mg/dL) 320 H 395 H (75-99) mg/dL Hemoglobin A1c 7.6 H (4.0-6.0) % 11/26/21 11/26/21 11/26/21 Range/Units 02:01 06:14 07:13 BUN 122 H* (9-20) mg/dL Creatinine 2.55 H (0.66-1.25) mg/dL Glucose 176 H (74-99) mg/dL POC Glucose (mg/dL) 260 H 216 H (75-99) mg/dL Hemoglobin A1c (4.0-6.0) % 11/26/21 Range/Units 11:40 BUN (9-20) mg/dL Creatinine (0.66-1.25) mg/dL Glucose (74-99) mg/dL POC Glucose (mg/dL) 135 H (75-99) mg/dL Hemoglobin A1c (4.0-6.0) % Assessment and Plan Assessment: Acute hypoxemic respiratory failure secondary to acute influenza. 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 Acute non-ST segment elevation myocardial infarction. Previous history of CAD, with bypass grafting. History of bladder cancer, status post cystectomy and urostomy. History of chronic kidney disease. Previous CVA. Type 2 diabetes mellitus. Plan: Plan dated 11/24/2021. The patient is maintained on 8 L high flow nasal O2. That can probably be weaned as the patient's saturations are 99%. The patient was placed on albuterol sulfate and ipratropium bromide, and started on Tamiflu, 75 mg twice a day. In addition, the patient was started on IV Solu-Medrol. The patient has been seen by cardiology. We'll continue to follow. Prognosis is guarded. Additional recommendations and suggestions where appropriate. Plan dated 11/25/2021. The patient is maintained on 6 L high flow nasal cannula. Clinically, the patient appears to be doing bit better. His saturations are in the mid 90s to high 90s. The patient is on DuoNeb, and Tamiflu. Labs, x-rays, and medications are reviewed. The patient was started on corticosteroids. His oxygenation has improved. Additional recommendations and suggestions are forthcoming. Prognosis is guarded. We will continue to follow this patient, and make recommendations where appropriate. Plan dated 11/26/2021. The patient's on 6 L high flow nasal cannula. Saturations are 99%. The oxygen can be titrated down. The patient's Solu-Medrol was reduced to 40 mg IV, every 6 hours. The patient remains on DuoNeb. We will continue to follow and make recommendations where appropriate. The patient has one day more of Tamiflu. Additional recommendations and suggestions are forthcoming. Prognosis is guarded. Time with Patient: Greater than 30
--- NOTE | 2021-11-26 16:06 | P.PN ---
Subjective Progress Note Date: 11/26/21 Mr. Goncalves is somewhat improved today up in chair visiting with her son, O2 8 L per nasal cannula, still holding lisinopril, blood pressure controlled with metoprolol 50 mg daily hydralazine 25 mg 3 times a day, amlodipine 5 mg daily started by nephrology Patient otherwise states he is feeling somewhat better, pulmonary medicine started [facility] prednisone, [id number], reevaluating covid 19 by PCR, influenza by PCR and RSV ears nephrology also stopped metformin because of the acidosis reviewing the chart it looks like it was already stopped, but appears somewhat ambiguous, this patient's creatinine increased today we'll assess daily improvements, sugars well controlled at this time as well 11/24/2021 currently at 8 L high flow nasal cannula maintaining O2 sats in the high 90s. Chest x-ray reporting bilateral granulomatous changes within the lungs and mediastinum, patchy bilateral airspace disease towards lung bases, possible pneumonia-further review as per pulmonary pending .afebrile .poor diet intake .Creatinine worsening up to 3.25. Telemetry reporting atrial fibrillation, heart rates 40s to 70s. Echo pending. Evaluated by cardiology recommending conservative treatment. 11/25/2021 oxygen requirements lessening, down to 6 L high flow nasal cannula, maintaining O2 sats in the 90s. Afebrile. Denies chest pain, palpitations. Telemetry atrial fibrillation, bradycardic. Echo reporting EF 50-55%, apical septal LV wall hypokinetic; beta lana held today with dose decreased during tomorrow as per cardiology. Diet intake failure, patient was able to consume some of the [place] that son brought in. BUN 120, creatinine 2.87. Renal ultrasound pending. Hyperglycemic.Feels better today, sitting up in chair. 11/26/2021 hypertensive, hydralazine increased. BUN increased to 122, creatinine down to 2.5. Nephrology following.Afebrile. Maintaining O2 sats in the 90s on 6 L nasal cannula. Continues on Tamiflu, nebulized bronchodilators. Family wishes to bring patient home with home care versus subacute rehab. Objective - Vital Signs Vital signs: Vital Signs Temp 97.7 F 11/26/21 12:00 Pulse 56 L 11/26/21 14:00 Resp 17 11/26/21 14:00 BP 161/70 11/26/21 12:00 Pulse Ox 99 11/26/21 12:00 Intake & Output 11/25/21 11/26/21 11/26/21 18:59 06:59 18:59 Intake Total 118 Output Total 750 400 300 Balance -632 -400 -300 Intake: Oral 118 Output: Urine 750 400 300 - Exam - Exam General: [Patient awake, alert and oriented times 3,Sitting up in chair, no acute distress HEENT: [PERRL. EOMI. No pharyngeal erythema or exudate.] Neck: Supple Cardiac: [Heart irregular in rate and rhythm. No S3. No S4. No clicks, rubs. No murmur. Bradycardic] Lungs: Bilateral breath sounds rhonchorous fair air exchange noted, scattered crackles and improving expiratory wheezing Abdomen: [No mass. No organomegaly. Bowel sounds presnt and normoactive in all 4 quadrants.] Extremes: [No edema no cyanosis no claudication normal pulses] Skin: [Normal dry, No rash.] Neurologic: [No lateralizing deficits. CN II - XII grossly intact.] - Labs CBC & Chem 7: 11/22/21 05:42 11/26/21 07:13 Labs: Abnormal Lab Results - Last 24 Hours (Table) 11/25/21 11/25/21 11/25/21 Range/Units 05:42 16:48 19:58 BUN (9-20) mg/dL Creatinine (0.66-1.25) mg/dL Glucose (74-99) mg/dL POC Glucose (mg/dL) 320 H 395 H (75-99) mg/dL Hemoglobin A1c 7.6 H (4.0-6.0) % 11/26/21 11/26/21 11/26/21 Range/Units 02:01 06:14 07:13 BUN 122 H* (9-20) mg/dL Creatinine 2.55 H (0.66-1.25) mg/dL Glucose 176 H (74-99) mg/dL POC Glucose (mg/dL) 260 H 216 H (75-99) mg/dL Hemoglobin A1c (4.0-6.0) % 11/26/21 Range/Units 11:40 BUN (9-20) mg/dL Creatinine (0.66-1.25) mg/dL Glucose (74-99) mg/dL POC Glucose (mg/dL) 135 H (75-99) mg/dL Hemoglobin A1c (4.0-6.0) % Assessment and Plan Assessment: Acute NSTEMI, conservative management Acute Influenza A ,bronchitis Acute hypoxic respiratory failure secondary to the above Abnormal chest x-ray, 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 Fluid management as per nephrology. Weaning of steroids in progress as per pulmonary.Close monitoring of accucheks. Maintain aggressive pulmonary toileting, Tamiflu, IV steroids. Discharge planning in progress tentatively in 48 hrs., pending Pulmonary and nephrology clearance. The impression and plan of care has been dictated as directed. : I performed a history and examination of this patient, discussed the same with the dictator. I agree with the dictator's note ,documented as a scribe. Any additional findings or plans will be noted.
[2021-11-26 16:19] LABS: Glucose,Whole Blood 194 mg/dL (75-99)
[2021-11-26] MEDS: guaiFENesin-DM 600/30MG 1 EACH TAB.ER.12H PO SCH ×2 (16:59→20:43)
[2021-11-26] MEDS: hydrALAZINE HCL 50 MG TAB PO SCH ×2 (17:36→20:42)
[2021-11-26] MEDS: methylPREDNISolone SOD SUCCI 40 MG/ML 1 ML VIAL IV SCH ×2 (17:37→23:45)
[2021-11-26 20:18] LABS: Glucose,Whole Blood 347 mg/dL (75-99)
[2021-11-26] MEDS: ATORVASTATIN 10 MG TAB PO SCH (20:42)
[2021-11-26] MEDS: INSULIN DETEMIR (LEVEMIR) 100 UNIT/ML SYR SQ SCH (20:43)
[2021-11-27 06:28] LABS: Glucose,Whole Blood 220 mg/dL (75-99)
[2021-11-27] MEDS: methylPREDNISolone SOD SUCCI 40 MG/ML 1 ML VIAL IV SCH (06:42)
[2021-11-27] MEDS: INSULIN ASPART (NovoLOG) 100 UNIT/ML VIAL SQ SCH ×8 (06:43→21:39)
[2021-11-27] MEDS: glipiZIDE 10 MG TAB PO SCH (06:43)
[2021-11-27] MEDS: hydrALAZINE HCL 50 MG TAB PO SCH (08:29)
[2021-11-27] MEDS: ASPIRIN 81 MG PO SCH (08:29)
[2021-11-27] MEDS: PARoxetine 20 MG TAB PO SCH (08:29)
[2021-11-27] MEDS: amLODIPine 5 MG TAB PO SCH (08:29)
[2021-11-27] MEDS: APIXABAN 2.5 MG TABLET PO SCH ×2 (08:29→21:40)
[2021-11-27] MEDS: guaiFENesin-DM 600/30MG 1 EACH TAB.ER.12H PO SCH ×2 (08:30→22:06)
[2021-11-27] MEDS: SODIUM BICARBONATE TAB 650 MG TAB PO SCH (08:30)
[2021-11-27] MEDS: METOPROLOL SUCCINATE (ER) 25 MG TAB.ER.24H PO SCH (08:30)
[2021-11-27 09:04] LABS: Calcium 8.7 mg/dL (8.4-10.2); Magnesium 2.2 mg/dL (1.6-2.3); Potassium 4.2 mmol/L (3.5-5.1)
[2021-11-27] MEDS: IPRATROPIUM-ALBUTEROL 3 ML NEB INHALATION SCH ×4 (09:18→20:55)
--- NOTE | 2021-11-27 10:10 | P.PN ---
Subjective Patient is seen in follow-up for acute kidney injury on chronic kidney disease. Renal function stable. Nonoliguric. Currently on 6 L high flow cannula. Oral intake fair. Resting in bed. No active complaints. Vital signs are stable. HEENT: Head exam is unremarkable. On nasal cannula. LUNGS: Breath sounds decreased. HEART: Rate and Rhythm are regular. ABDOMEN: Soft, no distention. EXTREMITITES: No edema. Objective - Vital Signs Vital signs: Vital Signs Temp 97.7 F 11/26/21 20:40 Pulse 57 L 11/27/21 04:35 Resp 16 11/27/21 04:35 BP 175/75 11/27/21 04:35 Pulse Ox 99 11/27/21 04:35 Intake & Output 11/26/21 11/27/21 11/27/21 18:59 06:59 18:59 Output Total 300 300 Balance -300 -300 Output: Urine 300 300 - Labs CBC & Chem 7: 11/22/21 05:42 11/27/21 08:12 Labs: Abnormal Lab Results - Last 24 Hours (Table) 11/26/21 11/26/21 11/26/21 Range/Units 11:40 16:18 20:16 BUN (9-20) mg/dL Creatinine (0.66-1.25) mg/dL Glucose (74-99) mg/dL POC Glucose (mg/dL) 135 H 194 H 347 H (75-99) mg/dL 11/27/21 11/27/21 Range/Units 06:26 08:12 BUN 110 H* (9-20) mg/dL Creatinine 2.60 H (0.66-1.25) mg/dL Glucose 207 H (74-99) mg/dL POC Glucose (mg/dL) 220 H (75-99) mg/dL Assessment and Plan Plan: Assessment: 1. Acute kidney injury secondary to ATN. Creatinine peaked at 3.25 this admission and is stable at 2.6 today. No hydronephrosis noted on kidney ultrasound. BUN elevated due to acute kidney injury as well as steroids. No evidence of GI bleed. 2. Chronic kidney disease stage IIIB with creatinine 1.6 in October 2015. 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 No other records available. 3. History of bladder cancer status post urostomy. 4. Metabolic acidosis secondary to acute kidney injury. Was also on metformin. On oral bicarb. Improved. 5. Hypertension with chronic kidney disease. 6. Diabetes mellitus. 7. Influenza A infection. Plan: Continue to hold lisinopril. Stop bicarb. Dose of hydralazine increased further. Avoid nephrotoxins. Continue to monitor renal function and urine output. Encouraged oral intake. Chest Xray is suggestive of pneumonia.
[2021-11-27 11:41] LABS: Glucose,Whole Blood 138 mg/dL (75-99)
--- NOTE | 2021-11-27 12:18 | P.PN ---
Subjective Progress Note Date: 11/27/21 Principal diagnosis: Respiratory failure. 86-year-old male patient was a transfer from the hospital because of worsening shortness of breath. The patient denies having any previous history of lung disease. He is known to have an extensive cardiac disease including coronary artery disease, previous bypass surgery, atrial fibrillation, chronic kidney disease, hypertension and hyperlipidemia and diabetes mellitus. The patient is not vaccinated for COVID 19. The patient started getting sick approximately 3-4 days ago. He was feeling exhausted and tired and fatigued and short of breath and congested. No documented fever. He was not having any chest pain. His troponin was found to be elevated at 4.5 highest and the repeat levels came back at 2.4 and 2.1. COVID 19 testing that was done in [facility] came back negative and the patient is not vaccinated. The patient however tested positive for influenza. He got transferred to the hospital for further ev aluation. His creatinine was elevated and the patient is known to have chronic kidney disease. He has white cell count at time of admission was 20.9. Creatinine was at 3.1. Sodium is at 136. Chest x-ray showed no acute pulmonary infiltrates. No altered mentation. No hemoptysis. No pleurisy. Cardiology will be evaluating the patient. The patient is currently on IV heparin. Echocardiac Antonio was also ordered. Progress note dated 11/24/2021. The patient is again seen in room 370. The patient's currently on 8 L high flow nasal O2, with saturations of 99%. He's not receiving any IV fluids. The patient's chest x-ray showed patchy bibasilar infiltrates. Laboratory data from today includes a normal sodium, potassium, chloride, and CO2. Anion gap is 13. BUN is 115 with a creatinine of 3.25. Glucose is 153. Chest x-ray from November 24 as above. Progress note dated 11/25/2021. The patient is again seen in room 370. Currently, he's on 6 L high flow nasal cannula. He's not receiving any IV fluids. His saturations are in the mid 90s. Yesterday, he was on 8 L high flow nasal cannula. Clinically, he appears relatively stable. He does have shortness of breath on exertion. Chest x-ray was reviewed. Today's labs include a sodium 139, potassium 4.2, chlorides 104, CO2 25, anion gap 10, BUN 120, and creatinine 2.87. Progress note dated 11/26/2021. The patient is again seen in room 370. He is 86 years of age. He remains on nasal O2 at 6 L. Not receiving any IV fluids. Saturations are in the mid 90s. He looks clinically stable. Labs today include a sodium 137, potassium 4.1, chlorides 102, CO2 24, anion gap 11, BUN 122, and creatinine 2.55. The patient's Solu-Medrol was reduced down to 40 mg IV push every 6 hours. Progress note dated 11/27/2021. 86-year-old male, again seen in room 370. The patient is currently on 6 L nasal cannula has been on 6 L the last 3 or 4 days. The patient is very lethargic and somnolent. He's not receiving any IV fluids. Today's labs include a sodium 140, potassium 4.2, chlorides 103, CO2 28, anion gap 9, BUN 110, and creatinine 2.60. Calcium is 8.7 with a magnesium of 2.2. No recent x-ray to report. Yesterday, I reduced the patient's Solu-Medrol down to 40 mg every 6 hours. He remains on amlodipine, Eliquis, aspirin, Lipitor, Glucotrol, Mucinex, hydralazine, NovoLog insulin, Levemir insulin, DuoNeb nebs, sublingual nitroglycerin, and Paxil. Objective - Vital Signs Vital signs: Vital Signs Temp 97.4 F L 11/27/21 11:32 Pulse 54 L 11/27/21 11:32 Resp 20 11/27/21 11:32 BP 129/60 11/27/21 11:32 Pulse Ox 98 11/27/21 11:32 Intake & Output 11/26/21 11/27/21 11/27/21 18:59 06:59 18:59 Output Total 300 300 475 Balance -300 -300 -475 Weight 72.2 kg Output: Urine 300 300 475 Other: Voiding Method Ileal Conduit (Right) - Exam Mild conversational dyspnea, oriented 3. Currently on 6 L high flow nasal O2. Saturations are 98%. The patient is very lethargic and somnolent. He does arouse. HEENT examination is grossly unremarkable. Neck supple. Full range of motion. No adenopathy thyromegaly or neck vein distention. Cardiovascular examination reveals regular rhythm rate. S1-S2 normal. No S3 or S4. No discernible murmur noted. Heart rate 55 bpm. Heart sounds are distant. Lungs reveal bilateral coarse rhonchi and expiratory wheezes. Scattered crackles are noted. Breath sounds are equal bilaterally. Breath sounds are mildly improved. Abdomen soft bowel sounds are heard. No masses or tenderness. Extremities are intact. No cyanosis clubbing or edema. Skin is without rash or lesion. Neurologic examination is brief but nonfocal. Diffuse muscle weakness. - Labs CBC & Chem 7: 11/22/21 05:42 11/27/21 08:12 Labs: Abnormal Lab Results - Last 24 Hours (Table) 11/26/21 11/26/21 11/27/21 Range/Units 16:18 20:16 06:26 BUN (9-20) mg/dL Creatinine (0.66-1.25) mg/dL Glucose (74-99) mg/dL POC Glucose (mg/dL) 194 H 347 H 220 H (75-99) mg/dL 11/27/21 11/27/21 Range/Units 08:12 11:39 BUN 110 H* (9-20) mg/dL Creatinine 2.60 H (0.66-1.25) mg/dL Glucose 207 H (74-99) mg/dL POC Glucose (mg/dL) 138 H (75-99) mg/dL Assessment and Plan Assessment: Acute hypoxemic respiratory failure secondary to acute influenza. 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 Acute non-ST segment elevation myocardial infarction. Previous history of CAD, with bypass grafting. History of bladder cancer, status post cystectomy and urostomy. History of chronic kidney disease. Previous CVA. Type 2 diabetes mellitus. Plan: Plan dated 11/24/2021. The patient is maintained on 8 L high flow nasal O2. That can probably be weaned as the patient's saturations are 99%. The patient was placed on albuterol sulfate and ipratropium bromide, and started on Tamiflu, 75 mg twice a day. In addition, the patient was started on IV Solu-Medrol. The patient has been seen by cardiology. We'll continue to follow. Prognosis is guarded. Additional recommendations and suggestions where appropriate. Plan dated 11/25/2021. The patient is maintained on 6 L high flow nasal cannula. Clinically, the patient appears to be doing bit better. His saturations are in the mid 90s to high 90s. The patient is on DuoNeb, and Tamiflu. Labs, x-rays, and medications are reviewed. The patient was started on corticosteroids. His oxygenation has improved. Additional recommendations and suggestions are forthcoming. Prognosis is guarded. We will continue to follow this patient, and make recommendations where appropriate. Plan dated 11/26/2021. The patient's on 6 L high flow nasal cannula. Saturations are 99%. The oxygen can be titrated down. The patient's Solu-Medrol was reduced to 40 mg IV, every 6 hours. The patient remains on DuoNeb. We will continue to follow and make recommendations where appropriate. The patient has one day more of Tamiflu. Additional recommendations and suggestions are forthcoming. Prognosis is guarded. Plan dated 11/27/2021. The patient remains on 6 L nasal cannula. Saturations are between 99%. The oxygen can certainly be weaned down. In addition, I'll repeat a chest x-ray. The patient's Solu-Medrol was reduced down to 40 mg every 6 hours. The patient has completed his Tamiflu. Prognosis is guarded. We will continue to follow make recommendations where appropriate. Time with Patient: Less than 30
[2021-11-27] MEDS: OSELTAMIVIR 60 MG/10 ML ORAL SYRINGE PO SCH (12:22)
--- NOTE | 2021-11-27 13:00 | P.PN ---
Subjective Progress Note Date: 11/27/21 HISTORY OF PRESENT ILLNESS: Patient is a pleasant 86-year-old male with history of prior stroke, persistent atrial fibrillation, diabetes mellitus type 2, hypertension, coronary artery disease status post CABG approximately 2001, previous tobacco abuse as well as with Dr. Smiley. Office notes are not currently available. He presents from [facility] where he presented with feeling some increased shortness of breath and fatigue and "going downhill" for last 4-5 days. He was diagnosed with influenza A however also found to have elevated troponin of 4.5. Trop was repeated here and it was 2.4, 2.1. He denies any significant chest pain, pressure, tightness. His creatinine is noted to be elevated 2.4, unclear baseline and also has elevated white count at 20. EKG shows atrial fibrillation with right bundle branch block, nonspecific ST, T-wave abnormalities. 11/23 Patient remains on high flow however states breathing is somewhat better. Apparently he was more confused overnight however no appears improving. Creatinine increased into the threes today and nephrology saw patient with lisinopril held and Amlodipine added. BP's have been controlled. Echo pending. Tele Afib with CVR. 11/24/2021 Patient examined this morning at the bedside. Patient denies chest pain or pressure. He reports mild shortness of breath. He is on 8L NC. Creatinine 3.25.Nephrology following. 11/25/2021 Patient examined this morning at the bedside. Patient denies chest pain or pressure. Reports SOB. He remains on nasal cannula. Telemetry reveals atrial fibrillation with a heart rate in the 50s. Echocardiogram completed revealing ejection fraction 50-55%, apical septal LV wall hypokinesis, mild aortic regurgitation, mild aortic stenosis, mild mitral regurgitation, and mild tricuspid regurgitation. 11/26/2021 Patient examined this morning at the bedside. Patient denies chest pain or pressure. He continues to report mild shortness of breath. He remains on nasal cannula 6 L/m. Telemetry reviewed revealing atrial fibrillation. His heart rate remains in the 50s. 11/27/2021 Cardiology was asked to reevaluate patient secondary to bradycardia. Patient examined this afternoon at the bedside. Patient has chronic atrial fibrillation. His heart rate is in the 50s. He is asymptomatic. Telemetry reviewed revealing pauses of around 2 seconds. Patient is prescribed metoprolol however this has been held for the last 3 days secondary to his bradycardia. PHYSICAL EXAM: VITAL SIGNS: Reviewed. GENERAL: Well-developed in no acute distress. NECK: Supple. No JVD or thyromegaly LUNGS: Respirations even and unlabored. Lungs diminished to auscultation bilaterally. HEART: Irregular rate and rhythm. S1 and S2 heard. EXTREMITIES: Normal range of motion. No clubbing or cyanosis. Peripheral pulses intact. No lower extremity edema ASSESSMENT: 1. Non-STEMI 2. Coronary artery disease status post CABG 3. Hypertension 4. Hyperlipidemia 5. Chronic kidney disease, unclear baseline 6. Persistent atrial fibrillation controlled ventricular rate 7. History of stroke 8. Diabetes mellitus 9. Leukocytosis 10. Influenza pneumonia PLAN: Continue current cardiac medications Discontinue metoprolol Continue telemetry monitoring Check TSH Further recommendations pending patient's course Nurse practitioner note has been reviewed by physician. Signing provider agrees with the documented findings, assessment, and plan of care. Objective - Vital Signs Vital signs: Vital Signs Temp 97.4 F L 11/27/21 11:32 Pulse 54 L 11/27/21 11:32 Resp 20 11/27/21 11:32 BP 129/60 11/27/21 11:32 Pulse Ox 98 11/27/21 11:32 Intake & Output 11/26/21 11/27/21 11/27/21 18:59 06:59 18:59 Output Total 300 300 475 Balance -300 -300 -475 Weight 72.2 kg Output: Urine 300 300 475 Other: Voiding Method Ileal Conduit (Right) - Labs CBC & Chem 7: 11/22/21 05:42 11/27/21 08:12 Labs: Abnormal Lab Results - Last 24 Hours (Table) 11/26/21 11/26/21 11/27/21 Range/Units 16:18 20:16 06:26 BUN (9-20) mg/dL Creatinine (0.66-1.25) mg/dL Glucose (74-99) mg/dL POC Glucose (mg/dL) 194 H 347 H 220 H (75-99) mg/dL 11/27/21 11/27/21 Range/Units 08:12 11:39 BUN 110 H* (9-20) mg/dL Creatinine 2.60 H (0.66-1.25) mg/dL Glucose 207 H (74-99) mg/dL POC Glucose (mg/dL) 138 H (75-99) mg/dL
--- NOTE | 2021-11-27 14:06 | XR ---
EXAMINATION TYPE: XR chest 1V portable DATE OF EXAM: 11/27/2021 COMPARISON: Chest x-ray 11/24/2021 HISTORY: Influenza, abnormal chest x-ray TECHNIQUE: Single frontal view of the chest is obtained. FINDINGS: There is improvement in aeration as compared to prior exam. There are calcified granuloma about the lungs as on prior exam. Patient is post median sternotomy, multiple sternal wires are fract ured. Aorta is dense. Calcified mediastinal and hilar nodes are present. There are overlying artifact s. There is no pneumothorax or pleural effusion. Cardiac mediastinal silhouette is stable. IMPRESSION: There is improvement in aeration.
[2021-11-27 16:33] LABS: Glucose,Whole Blood 188 mg/dL (75-99)
[2021-11-27] MEDS: hydrALAZINE HCL 25 MG TAB PO SCH ×2 (17:04→21:40)
[2021-11-27 19:35] LABS: Glucose,Whole Blood 287 mg/dL (75-99)
[2021-11-27] MEDS: INSULIN DETEMIR (LEVEMIR) 100 UNIT/ML SYR SQ SCH (21:39)
[2021-11-27] MEDS: ATORVASTATIN 10 MG TAB PO SCH (21:40)
[2021-11-28 06:06] LABS: Glucose,Whole Blood 117 mg/dL (75-99)
[2021-11-28] MEDS: INSULIN ASPART (NovoLOG) 100 UNIT/ML VIAL SQ SCH ×8 (06:07→21:39)
[2021-11-28] MEDS: glipiZIDE 10 MG TAB PO SCH (06:12)
[2021-11-28 07:28] LABS: Calcium 8.5 mg/dL (8.4-10.2); Potassium 4.1 mmol/L (3.5-5.1)
[2021-11-28] MEDS: ALBUTEROL HFA INHALER INHALATION SCH ×4 (08:01→20:30)
[2021-11-28] MEDS: hydrALAZINE HCL 25 MG TAB PO SCH ×3 (08:42→21:38)
[2021-11-28] MEDS: guaiFENesin-DM 600/30MG 1 EACH TAB.ER.12H PO SCH ×2 (08:42→21:38)
[2021-11-28] MEDS: ASPIRIN 81 MG PO SCH (08:42)
[2021-11-28] MEDS: predniSONE 20 MG TAB PO SCH (08:43)
[2021-11-28] MEDS: amLODIPine 5 MG TAB PO SCH (08:43)
[2021-11-28] MEDS: PARoxetine 20 MG TAB PO SCH (08:43)
[2021-11-28] MEDS: APIXABAN 2.5 MG TABLET PO SCH ×2 (08:43→21:38)
--- NOTE | 2021-11-28 10:19 | P.PN ---
Subjective Patient is seen in follow-up for acute kidney injury on chronic kidney disease. Renal function a little better. Nonoliguric. Currently on 4 L high flow cannula. Oral intake fair. Resting in bed. No active complaints. Blood pressure stable. Vital signs are stable. HEENT: Head exam is unremarkable. On nasal cannula. LUNGS: Breath sounds decreased. HEART: Rate and Rhythm are regular. ABDOMEN: Soft, no distention. EXTREMITITES: No edema. Objective - Vital Signs Vital signs: Vital Signs Temp 98.0 F 11/28/21 08:00 Pulse 61 11/28/21 08:00 Resp 18 11/28/21 08:00 BP 146/67 11/28/21 08:00 Pulse Ox 91 L 11/28/21 08:00 Intake & Output 11/27/21 11/28/21 11/28/21 18:59 06:59 18:59 Intake Total 485 Output Total 775 850 Balance -775 -365 Weight 72.2 kg 73 kg Intake: Oral 485 Output: Urine 775 850 Other: Voiding Method Ileal Conduit (Right) Ileal Conduit (Right) Ileal Conduit (Right) - Labs CBC & Chem 7: 11/22/21 05:42 11/28/21 06:28 Labs: Abnormal Lab Results - Last 24 Hours (Table) 11/27/21 11/27/21 11/27/21 Range/Units 11:39 16:30 19:34 BUN (9-20) mg/dL Creatinine (0.66-1.25) mg/dL Glucose (74-99) mg/dL POC Glucose (mg/dL) 138 H 188 H 287 H (75-99) mg/dL 11/28/21 11/28/21 Range/Units 06:02 06:28 BUN 104 H* (9-20) mg/dL Creatinine 2.43 H (0.66-1.25) mg/dL Glucose 110 H (74-99) mg/dL POC Glucose (mg/dL) 117 H (75-99) mg/dL Assessment and Plan Plan: Assessment: 1. Acute kidney injury secondary to ATN. Creatinine peaked at 3.25 this admission and is 2.43 today. No hydronephrosis noted on kidney ultrasound. BUN elevated due to acute kidney injury as well as steroids. No evidence of GI bleed. 2. Chronic kidney disease stage IIIB with creatinine 1.6 in October 2015. 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 No other records available. 3. History of bladder cancer status post urostomy. 4. Metabolic acidosis secondary to acute kidney injury. Was also on metformin. Improved. 5. Hypertension with chronic kidney disease. Stable. 6. Diabetes mellitus. 7. Influenza A infection. Plan: Continue to hold lisinopril. Stopped bicarb. Avoid nephrotoxins. Continue to monitor renal function and urine output. Encouraged oral intake. No evidence of fluid overload on CXR.
[2021-11-28 11:58] LABS: Glucose,Whole Blood 110 mg/dL (75-99)
--- NOTE | 2021-11-28 13:12 | P.PN ---
Subjective Progress Note Date: 11/28/21 HISTORY OF PRESENT ILLNESS: Patient is a pleasant 86-year-old male with history of prior stroke, persistent atrial fibrillation, diabetes mellitus type 2, hypertension, coronary artery disease status post CABG approximately 2001, previous tobacco abuse as well as with Dr. Smiley. Office notes are not currently available. He presents from [facility] where he presented with feeling some increased shortness of breath and fatigue and "going downhill" for last 4-5 days. He was diagnosed with influenza A however also found to have elevated troponin of 4.5. Trop was repeated here and it was 2.4, 2.1. He denies any significant chest pain, pressure, tightness. His creatinine is noted to be elevated 2.4, unclear baseline and also has elevated white count at 20. EKG shows atrial fibrillation with right bundle branch block, nonspecific ST, T-wave abnormalities. 11/23 Patient remains on high flow however states breathing is somewhat better. Apparently he was more confused overnight however no appears improving. Creatinine increased into the threes today and nephrology saw patient with lisinopril held and Amlodipine added. BP's have been controlled. Echo pending. Tele Afib with CVR. 11/24/2021 Patient examined this morning at the bedside. Patient denies chest pain or pressure. He reports mild shortness of breath. He is on 8L NC. Creatinine 3.25.Nephrology following. 11/25/2021 Patient examined this morning at the bedside. Patient denies chest pain or pressure. Reports SOB. He remains on nasal cannula. Telemetry reveals atrial fibrillation with a heart rate in the 50s. Echocardiogram completed revealing ejection fraction 50-55%, apical septal LV wall hypokinesis, mild aortic regurgitation, mild aortic stenosis, mild mitral regurgitation, and mild tricuspid regurgitation. 11/26/2021 Patient examined this morning at the bedside. Patient denies chest pain or pressure. He continues to report mild shortness of breath. He remains on nasal cannula 6 L/m. Telemetry reviewed revealing atrial fibrillation. His heart rate remains in the 50s. 11/27/2021 Cardiology was asked to reevaluate patient secondary to bradycardia. Patient examined this afternoon at the bedside. Patient has chronic atrial fibrillation. His heart rate is in the 50s. He is asymptomatic. Telemetry reviewed revealing pauses of around 2 seconds. Patient is prescribed metoprolol however this has been held for the last 3 days secondary to his bradycardia. 11/28/2021 Patient examined this morning at the bedside. Patient denies chest pain or pre ssure. Telemetry reveals atrial fibrillation with a heart rate around 55. Patient's metoprolol was discontinued yesterday. TSH 2.920. PHYSICAL EXAM: VITAL SIGNS: Reviewed. GENERAL: Well-developed in no acute distress. NECK: Supple. No JVD or thyromegaly LUNGS: Respirations even and unlabored. Lungs diminished to auscultation bilaterally. HEART: Irregular rate and rhythm. S1 and S2 heard. EXTREMITIES: Normal range of motion. No clubbing or cyanosis. Peripheral pulses intact. No lower extremity edema ASSESSMENT: 1. Non-STEMI 2. Coronary artery disease status post CABG 3. Hypertension 4. Hyperlipidemia 5. Chronic kidney disease, unclear baseline 6. Persistent atrial fibrillation controlled ventricular rate 7. History of stroke 8. Diabetes mellitus 9. Leukocytosis 10. Influenza pneumonia 11. Asymptomatic bradycardia PLAN: Continue current cardiac medications Metoprolol has been discontinued Patient is asymptomatic with his bradycardia. No further cardiac recommendations. We will sign off. Please reconsult if needed Nurse practitioner note has been reviewed by physician. Signing provider agrees with the documented findings, assessment, and plan of care. Objective - Vital Signs Vital signs: Vital Signs Temp 97.6 F 11/28/21 12:00 Pulse 63 11/28/21 12:00 Resp 18 11/28/21 12:00 BP 126/57 11/28/21 12:00 Pulse Ox 93 L 11/28/21 12:00 Intake & Output 11/27/21 11/28/21 11/28/21 18:59 06:59 18:59 Intake Total 485 Output Total 775 850 350 Balance -427 -365 -544 Weight 72.2 kg 73 kg Intake: Oral 485 Output: Urine 775 850 350 Other: Voiding Method Ileal Conduit (Right) Ileal Conduit (Right) Ileal Conduit (Right) - Labs CBC & Chem 7: 11/22/21 05:42 11/28/21 06:28 Labs: Abnormal Lab Results - Last 24 Hours (Table) 11/27/21 11/27/21 11/28/21 Range/Units 16:30 19:34 06:02 BUN (9-20) mg/dL Creatinine (0.66-1.25) mg/dL Glucose (74-99) mg/dL POC Glucose (mg/dL) 188 H 287 H 117 H (75-99) mg/dL 11/28/21 11/28/21 Range/Units 06:28 11:55 BUN 104 H* (9-20) mg/dL Creatinine 2.43 H (0.66-1.25) mg/dL Glucose 110 H (74-99) mg/dL POC Glucose (mg/dL) 110 H (75-99) mg/dL
--- NOTE | 2021-11-28 13:54 | P.PN ---
Subjective Progress Note Date: 11/27/21 Mr. Goncalves is somewhat improved today up in chair visiting with her son, O2 8 L per nasal cannula, still holding lisinopril, blood pressure controlled with metoprolol 50 mg daily hydralazine 25 mg 3 times a day, amlodipine 5 mg daily started by nephrology Patient otherwise states he is feeling somewhat better, pulmonary medicine started IV prednisone, continue [facility]eb [id number], reevaluating covid 19 by PCR, influenza by PCR and RSV ears nephrology also stopped metformin because of the acidosis reviewing the chart it looks like it was already stopped, but appears somewhat ambiguous, this patient's creatinine increased today we'll assess daily improvements, sugars well controlled at this time as well 11/24/2021 currently at 8 L high flow nasal cannula maintaining O2 sats in the high 90s. Chest x-ray reporting bilateral granulomatous changes within the lungs and mediastinum, patchy bilateral airspace disease towards lung bases, possible pneumonia-further review as per pulmonary pending .afebrile .poor diet intake .Creatinine worsening up to 3.25. Telemetry reporting atrial fibrillation, heart rates 40s to 70s. Echo pending. Evaluated by cardiology recommending conservative treatment. 11/25/2021 oxygen requirements lessening, down to 6 L high flow nasal cannula, maintaining O2 sats in the 90s. Afebrile. Denies chest pain, palpitations. Telemetry atrial fibrillation, bradycardic. Echo reporting EF 50-55%, apical septal LV wall hypokinetic; beta lana held today with dose decreased during tomorrow as per cardiology. Diet intake failure, patient was able to consume some of the [place] that son brought in. BUN 120, creatinine 2.87. Renal ultrasound pending. Hyperglycemic.Feels better today, sitting up in chair. 11/26/2021 hypertensive, hydralazine increased. BUN increased to 122, creatinine down to 2.5. Nephrology following.Afebrile. Maintaining O2 sats in the 90s on 6 L nasal cannula. Continues on Tamiflu, nebulized bronchodilators. Family wishes to bring patient home with home care versus subacute rehab. 11/27/2021 steroid tapering in progress. maintaining O2 sats in the high 90s on 6 L nasal cannula. Beta lana has been held 3 days to date related to bradycardia .Telemetry reporting atrial fibrillation with bradycardia, pauses ;heart rates ranging from 30s to 50s, beta lana has been discontinued as per cardiology. Renal function continues improving, trending down with BUN 110, creatinine 2.6. Diet intake fair-fluctuates. Objective - Vital Signs Vital signs: Vital Signs Temp 96.9 F L 11/27/21 16:22 Pulse 47 L 11/27/21 16:22 Resp 20 11/27/21 16:22 BP 149/68 11/27/21 16:22 Pulse Ox 98 11/27/21 16:22 Intake & Output 11/26/21 11/27/21 11/27/21 18:59 06:59 18:59 Output Total 300 300 775 Balance -300 -300 -775 Weight 72.2 kg Output: Urine 300 300 775 Other: Voiding Method Ileal Conduit (Right) - Exam - Exam General: [Patient awake, alert and oriented times 3,Sitting up in chair, no acute distress HEENT: [PERRL. EOMI. No pharyngeal erythema or exudate. Oral mucosa moist,] Neck: Supple, no JVD Cardiac: [Heart irregular in rate and rhythm. No S3. No S4. No clicks, rubs. No murmur. Bradycardic] Lungs: Bilateral breath sounds equal, rhonchorous,scattered crackles and improving expiratory wheezing Abdomen: [No mass. No organomegaly. Bowel sounds presnt and normoactive in all 4 quadrants.] Extremes: [No edema no cyanosis no claudication normal pulses] Skin: [Normal dry, No rash.] Neurologic: [No lateralizing deficits. CN II - XII grossly intact.] - Labs CBC & Chem 7: 11/22/21 05:42 11/28/21 06:28 Labs: Abnormal Lab Results - Last 24 Hours (Table) 11/26/21 11/27/21 11/27/21 Range/Units 20:16 06:26 08:12 BUN 110 H* (9-20) mg/dL Creatinine 2.60 H (0.66-1.25) mg/dL Glucose 207 H (74-99) mg/dL POC Glucose (mg/dL) 347 H 220 H (75-99) mg/dL 11/27/21 Range/Units 11:39 BUN (9-20) mg/dL Creatinine (0.66-1.25) mg/dL Glucose (74-99) mg/dL POC Glucose (mg/dL) 138 H (75-99) mg/dL Assessment and Plan Assessment: Acute NSTEMI, conservative management Acute Influenza A ,bronchitis Acute hypoxic respiratory failure secondary to the above Abnormal chest x-ray, Consistent with old varicella pneumonia per pulmonary Acute kidney injury secondary to ATN Chronic kidney disease stage IIIB, baseline creatinine 1.6 Diabetes mellitus with Hyperglycemia CAD, history of CABG COPD Former nicotine dependence History of bladder CA with urostomy Plan: Continue on current medication regime ,monitoring and symptomatic treatment. Blood sugars improving ,close monitoring of accucheks. Continue aggressive pulmonary toileting. Encouraged diet intake with close monitoring of renal function, repeat labs ordered for a.m. The impression and plan of care has been dictated as directed. : I performed a history and examination of this patient, discussed the same with the dictator. I agree with the dictator's note ,documented as a scribe. Any additional findings or plans will be noted.
--- NOTE | 2021-11-28 14:11 | P.PN ---
Subjective Progress Note Date: 11/28/21 Mr. Goncalves is somewhat improved today up in chair visiting with her son, O2 8 L per nasal cannula, still holding lisinopril, blood pressure controlled with metoprolol 50 mg daily hydralazine 25 mg 3 times a day, amlodipine 5 mg daily started by nephrology Patient otherwise states he is feeling somewhat better, pulmonary medicine started IV prednisone, [id number], reevaluating covid 19 by PCR, influenza by PCR and RSV ears nephrology also stopped metformin because of the acidosis reviewing the chart it looks like it was already stopped, but appears somewhat ambiguous, this patient's creatinine increased today we'll assess daily improvements, sugars well controlled at this time as well 11/24/2021 currently at 8 L high flow nasal cannula maintaining O2 sats in the high 90s. Chest x-ray reporting bilateral granulomatous changes within the lungs and mediastinum, patchy bilateral airspace disease towards lung bases, possible pneumonia-further review as per pulmonary pending .afebrile .poor diet intake .Creatinine worsening up to 3.25. Telemetry reporting atrial fibrillation, heart rates 40s to 70s. Echo pending. Evaluated by cardiology recommending conservative treatment. 11/25/2021 oxygen requirements lessening, down to 6 L high flow nasal cannula, maintaining O2 sats in the 90s. Afebrile. Denies chest pain, palpitations. Telemetry atrial fibrillation, bradycardic. Echo reporting EF 50-55%, apical septal LV wall hypokinetic; beta lana held today with dose decreased during tomorrow as per cardiology. Diet intake failure, patient was able to consume some of the [place] that son brought in. BUN 120, creatinine 2.87. Renal ultrasound pending. Hyperglycemic.Feels better today, sitting up in chair. 11/26/2021 hypertensive, hydralazine increased. BUN increased to 122, creatinine down to 2.5. Nephrology following.Afebrile. Maintaining O2 sats in the 90s on 6 L nasal cannula. Continues on Tamiflu, nebulized bronchodilators. Family wishes to bring patient home with home care versus subacute rehab. 11/27/2021 steroid tapering in progress. maintaining O2 sats in the high 90s on 6 L nasal cannula. Beta lana has been held 3 days to date related to bradycardia .Telemetry reporting atrial fibrillation with bradycardia, pauses ;heart rates ranging from 30s to 50s, beta lana has been discontinued as per cardiology. Renal function continues improving, trending down with BUN 110, creatinine 2.6. Diet intake fair-fluctuates. 11/28/2021 renal function continues to improve. Sitting up in chair, attempting to eat lunch with son at bedside. Blood sugars controlled .Maintaining O2 sats in the 90s on 4 L nasal cannula. Denies chest pain, palpitations or increasing shortness of breath. Patient is a 2 person moderate assist and fatigues easily as per physical therapy evaluation. Subacute rehab re-discussed between PCP and son at bedside. Objective - Vital Signs Vital signs: Vital Signs Temp 97.6 F 11/28/21 12:00 Pulse 63 11/28/21 12:00 Resp 18 11/28/21 12:00 BP 126/57 11/28/21 12:00 Pulse Ox 93 L 11/28/21 12:00 Intake & Output 11/27/21 11/28/21 11/28/21 18:59 06:59 18:59 Intake Total 485 Output Total 775 850 350 Balance -775 -365 -350 Weight 72.2 kg 73 kg Intake: Oral 485 Output: Urine 775 850 350 Other: Voiding Method Ileal Conduit (Right) Ileal Conduit (Right) Ileal Conduit (Right) - Exam - Exam General: Sitting up in chair, weak, no acute distress HEENT: [PERRL. EOMI. No pharyngeal erythema or exudate. Oral mucosa moist,] Neck: Supple, no JVD Cardiac: [Heart irregular in rate and rhythm. No S3. No S4. No clicks, rubs. No murmur. Bradycardic] Lungs: Bilateral breath sounds equal, rhonchorous,scattered crackles and occasional expiratory wheezing Abdomen: Soft, nontender, positive bowel sounds, no guarding, no rigidity] Extremes: [No edema no clubbing or cyanosis Skin: [Normal dry, No rash.] Neurologic: [No lateralizing deficits. CN II - XII grossly intact.] - Labs CBC & Chem 7: 11/22/21 05:42 11/28/21 06:28 Labs: Abnormal Lab Results - Last 24 Hours (Table) 11/27/21 11/27/21 11/28/21 Range/Units 16:30 19:34 06:02 BUN (9-20) mg/dL Creatinine (0.66-1.25) mg/dL Glucose (74-99) mg/dL POC Glucose (mg/dL) 188 H 287 H 117 H (75-99) mg/dL 11/28/21 11/28/21 Range/Units 06:28 11:55 BUN 104 H* (9-20) mg/dL Creatinine 2.43 H (0.66-1.25) mg/dL Glucose 110 H (74-99) mg/dL POC Glucose (mg/dL) 110 H (75-99) mg/dL Assessment and Plan Assessment: Acute NSTEMI, conservative management Acute Influenza A ,bronchitis Acute hypoxic respiratory failure secondary to the above Abnormal chest x-ray, Consistent with old varicella pneumonia per pulmonary Acute kidney injury secondary to ATN Chronic kidney disease stage IIIB, baseline creatinine 1.6 Diabetes mellitus with Hyperglycemia CAD, history of CABG COPD Former nicotine dependence History of bladder CA with urostomy Plan: Continue on current medication regime ,monitoring and symptomatic treatment. Maintain aggressive pulmonary toileting with nebulized bronchodilators, antibiotics, steroids. Weaning of Oxygen in progress, may require at discharge. Close monitoring of accucheks. Discharge planning in progress tentatively for the weekend. Family declining subacute rehab at this time and will take patient home. The impression and plan of care has been dictated as directed. : I performed a history and examination of this patient, discussed the same with the dictator. I agree with the dictator's note ,documented as a scribe. Any additional findings or plans will be noted.
--- NOTE | 2021-11-28 14:25 | P.PN ---
Subjective Progress Note Date: 11/28/21 Principal diagnosis: Respiratory failure. 86-year-old male patient was a transfer from the hospital because of worsening shortness of breath. The patient denies having any previous history of lung disease. He is known to have an extensive cardiac disease including coronary artery disease, previous bypass surgery, atrial fibrillation, chronic kidney disease, hypertension and hyperlipidemia and diabetes mellitus. The patient is not vaccinated for COVID 19. The patient started getting sick approximately 3-4 days ago. He was feeling exhausted and tired and fatigued and short of breath and congested. No documented fever. He was not having any chest pain. His troponin was found to be elevated at 4.5 highest and the repeat levels came back at 2.4 and 2.1. COVID 19 testing that was done in [facility] came back negative and the patient is not vaccinated. The patient however tested positive for influenza. He got transferred to the hospital for further ev aluation. His creatinine was elevated and the patient is known to have chronic kidney disease. He has white cell count at time of admission was 20.9. Creatinine was at 3.1. Sodium is at 136. Chest x-ray showed no acute pulmonary infiltrates. No altered mentation. No hemoptysis. No pleurisy. Cardiology will be evaluating the patient. The patient is currently on IV heparin. Echocardiac Antonio was also ordered. Progress note dated 11/24/2021. The patient is again seen in room 370. The patient's currently on 8 L high flow nasal O2, with saturations of 99%. He's not receiving any IV fluids. The patient's chest x-ray showed patchy bibasilar infiltrates. Laboratory data from today includes a normal sodium, potassium, chloride, and CO2. Anion gap is 13. BUN is 115 with a creatinine of 3.25. Glucose is 153. Chest x-ray from November 24 as above. Progress note dated 11/25/2021. The patient is again seen in room 370. Currently, he's on 6 L high flow nasal cannula. He's not receiving any IV fluids. His saturations are in the mid 90s. Yesterday, he was on 8 L high flow nasal cannula. Clinically, he appears relatively stable. He does have shortness of breath on exertion. Chest x-ray was reviewed. Today's labs include a sodium 139, potassium 4.2, chlorides 104, CO2 25, anion gap 10, BUN 120, and creatinine 2.87. Progress note dated 11/26/2021. The patient is again seen in room 370. He is 86 years of age. He remains on nasal O2 at 6 L. Not receiving any IV fluids. Saturations are in the mid 90s. He looks clinically stable. Labs today include a sodium 137, potassium 4.1, chlorides 102, CO2 24, anion gap 11, BUN 122, and creatinine 2.55. The patient's Solu-Medrol was reduced down to 40 mg IV push every 6 hours. Progress note dated 11/27/2021. 86-year-old male, again seen in room 370. The patient is currently on 6 L nasal cannula has been on 6 L the last 3 or 4 days. The patient is very lethargic and somnolent. He's not receiving any IV fluids. Today's labs include a sodium 140, potassium 4.2, chlorides 103, CO2 28, anion gap 9, BUN 110, and creatinine 2.60. Calcium is 8.7 with a magnesium of 2.2. No recent x-ray to report. Yesterday, I reduced the patient's Solu-Medrol down to 40 mg every 6 hours. He remains on amlodipine, Eliquis, aspirin, Lipitor, Glucotrol, Mucinex, hydralazine, NovoLog insulin, Levemir insulin, DuoNeb nebs, sublingual nitroglycerin, and Paxil. Progress note dated 11/28/2021. 86-year-old male, again seen in room 370. The patient has now been in the hospital for 7 days. He was admitted with a diagnosis of influenza infection. The patient has been weaned down the 4 L nasal cannula. He's not receiving any IV fluids. He remains somewhat lethargic. He does arouse. Does not appear to be in any respiratory distress or difficulty. Labs today include a sodium 137, potassium 4.1, chlorides 105, CO2 28, anion gap 4, BUN 104, and creatinine 2.43. Glucose is 110. Calcium 8.5, and magnesium is 2. Chest x-ray shows significant improvement in overall aeration, compared to a chest x-ray done on November 24. Objective - Vital Signs Vital signs: Vital Signs Temp 97.6 F 01/07/22 12:00 Pulse 63 11/28/21 12:00 Resp 18 11/28/21 12:00 BP 126/57 11/28/21 12:00 Pulse Ox 93 L 11/28/21 12:00 Intake & Output 11/27/21 11/28/21 11/28/21 18:59 06:59 18:59 Intake Total 485 Output Total 775 850 350 Balance -352 -658 -163 Weight 72.2 kg 73 kg Intake: Oral 485 Output: Urine 775 850 350 Other: Voiding Method Ileal Conduit (Right) Ileal Conduit (Right) Ileal Conduit (Rig ht) - Exam Mild conversational dyspnea, oriented 3. Currently on 4 L high flow nasal O2. Saturations are 93%. The patient is very lethargic and somnolent. He does arouse. HEENT examination is grossly unremarkable. Neck supple. Full range of motion. No adenopathy thyromegaly or neck vein distention. Cardiovascular examination reveals regular rhythm rate. S1-S2 normal. No S3 or S4. No discernible murmur noted. Heart rate 563 bpm. Heart sounds are distant. Lungs reveal bilateral coarse rhonchi and expiratory wheezes. Scattered cr ackles are noted. Breath sounds are equal bilaterally. Breath sounds are mildly improved. Abdomen soft bowel sounds are heard. No masses or tenderness. Extremities are intact. No cyanosis clubbing or edema. Skin is without rash or lesion. Neurologic examination is brief but nonfocal. Diffuse muscle weakness. - Labs CBC & Chem 7: 11/22/21 05:42 11/28/21 06:28 Labs: Abnormal Lab Results - Last 24 Hours (Table) 11/27/21 11/27/21 11/28/21 Range/Units 16:30 19:34 06:02 BUN (9-20) mg/dL Creatinine (0.66-1.25) mg/dL Glucose (74-99) mg/dL POC Glucose (mg/dL) 188 H 287 H 117 H (75-99) mg/dL 11/28/21 11/28/21 Range/Units 06:28 11:55 BUN 104 H* (9-20) mg/dL Creatinine 2.43 H (0.66-1.25) mg/dL Glucose 110 H (74-99) mg/dL POC Glucose (mg/dL) 110 H (75-99) mg/dL Assessment and Plan Assessment: Acute hypoxemic respiratory failure secondary to acute influenza. 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 Acute non-ST segment elevation myocardial infarction. Previous history of CAD, with bypass grafting. History of bladder cancer, status post cystectomy and urostomy. History of chronic kidney disease. Previous CVA. Type 2 diabetes mellitus. Plan: Plan dated 11/24/2021. The patient is maintained on 8 L high flow nasal O2. That can probably be weaned as the patient's saturations are 99%. The patient was placed on alb uterol sulfate and ipratropium bromide, and started on Tamiflu, 75 mg twice a day. In addition, the patient was started on IV Solu-Medrol. The patient has been seen by cardiology. We'll continue to follow. Prognosis is guarded. Additional recommendations and suggestions where appropriate. Plan dated 11/25/2021. The patient is maintained on 6 L high flow nasal cannula. Clinically, the patie nt appears to be doing bit better. His saturations are in the mid 90s to high 90s. The patient is on DuoNeb, and Tamiflu. Labs, x-rays, and medications are reviewed. The patient was started on corticosteroids. His oxygenation has improved. Additional recommendations and suggestions are forthcoming. Prognosis is guarded. We will continue to follow this patient, and make recommendations where appropriate. Plan dated 11/26/2021. The patient's on 6 L high flow nasal cannula. Saturations are 99%. The oxygen can be titrated down. The patient's Solu-Medrol was reduced to 40 mg IV, every 6 hours. The patient remains on DuoNeb. We will continue to follow and make recommendations where appropriate. The patient has one day more of Tamiflu. Additional recommendations and suggestions are forthcoming. Prognosis is guarded. Plan dated 11/27/2021. The patient remains on 6 L nasal cannula. Saturations are between 99%. The oxygen can certainly be weaned down. In addition, I'll repeat a chest x-ray. The patient's Solu-Medrol was reduced down to 40 mg every 6 hours. The patient has completed his Tamiflu. Prognosis is guarded. We will continue to follow make recommendations where appropriate. Plan dated 11/28/2021. The patient appears to be both clinically and radiographically improved. The patient's down the 4 L nasal cannula. His respiratory status appears to be sta ble. The patient's Solu-Medrol was discontinued in favor of prednisone 20 mg a day. The patient has completed his Tamiflu. We'll continue to follow make recommendations where appropriate. Overall prognosis remains guarded. Discharge planning is underway. Time with Patient: Less than 30
[2021-11-28] MEDS: methylPREDNISolone SOD SUCCI 40 MG/ML 1 ML VIAL IV SCH (14:36)
[2021-11-28 16:55] LABS: Glucose,Whole Blood 258 mg/dL (75-99)
[2021-11-28 19:57] LABS: Glucose,Whole Blood 452 mg/dL (75-99)
[2021-11-28] MEDS: ATORVASTATIN 10 MG TAB PO SCH (21:38)
[2021-11-28] MEDS: INSULIN DETEMIR (LEVEMIR) 100 UNIT/ML SYR SQ SCH (21:39)
[2021-11-29 06:59] LABS: Glucose,Whole Blood 77 mg/dL (75-99)
[2021-11-29] MEDS: INSULIN ASPART (NovoLOG) 100 UNIT/ML VIAL SQ SCH ×8 (07:12→21:14)
[2021-11-29] MEDS: glipiZIDE 10 MG TAB PO SCH (07:14)
[2021-11-29] MEDS: ALBUTEROL HFA INHALER INHALATION SCH ×4 (07:44→20:22)
--- NOTE | 2021-11-29 08:28 | P.PN ---
Subjective Patient is seen in follow-up for acute kidney injury on chronic kidney disease. Renal function a little better yesterday. Nonoliguric. Currently on 4 L high flow cannula. Oral intake fair. Resting in bed. No active complaints. Blood pressure stable. Vital signs are stable. HEENT: Head exam is unremarkable. On nasal cannula. LUNGS: Breath sounds decreased. HEART: Rate and Rhythm are regular. ABDOMEN: Soft, no distention. EXTREMITITES: No edema. Objective - Vital Signs Vital signs: Vital Signs Temp 97.9 F 11/28/21 20:00 Pulse 63 11/29/21 04:00 Resp 18 11/29/21 04:00 BP 148/78 11/29/21 04:00 Pulse Ox 91 L 11/29/21 04:00 Intake & Output 11/28/21 11/29/21 11/29/21 18:59 06:59 18:59 Intake Total 180 485 Output Total 350 625 Balance -170 -140 Intake: Oral 180 485 Output: Urine 350 625 Other: Voiding Method Ileal Conduit (Right) Ileal Conduit (Right) - Labs CBC & Chem 7: 11/22/21 05:42 11/28/21 06:28 Labs: Abnormal Lab Results - Last 24 Hours (Table) 11/28/21 11/28/21 11/28/21 Range/Units 11:55 16:54 19:52 POC Glucose (mg/dL) 110 H 258 H 452 H (75-99) mg/dL Assessment and Plan Plan: Assessment: 1. Acute kidney injury secondary to ATN. Creatinine peaked at 3.25 this admission and 2.43 as of yesterday. No hydronephrosis noted on kidney ultrasound. BUN elevated due to acute kidney injury as well as steroids - trending down. No evidence of GI bleed. 2. Chronic kidney disease stage IIIB with creatinine 1.6 in October 2015. 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 No other records available. 3. History of bladder cancer status post urostomy. 4. Metabolic acidosis secondary to acute kidney injury. Was also on metformin. Improved. 5. Hypertension with chronic kidney disease. Stable. 6. Diabetes mellitus. 7. Influenza A infection. Plan: Continue to hold lisinopril. Stopped bicarb. Avoid nephrotoxins. Continue to monitor renal function and urine output. Encouraged oral intake. No evidence of fluid overload on CXR. Morning labs pending.
[2021-11-29] MEDS: PARoxetine 20 MG TAB PO SCH (09:24)
[2021-11-29] MEDS: predniSONE 20 MG TAB PO SCH (09:24)
[2021-11-29] MEDS: ASPIRIN 81 MG PO SCH (09:24)
[2021-11-29] MEDS: APIXABAN 2.5 MG TABLET PO SCH ×2 (09:24→21:13)
[2021-11-29] MEDS: amLODIPine 5 MG TAB PO SCH (09:24)
[2021-11-29] MEDS: guaiFENesin-DM 600/30MG 1 EACH TAB.ER.12H PO SCH ×2 (09:24→21:13)
[2021-11-29] MEDS: hydrALAZINE HCL 25 MG TAB PO SCH ×4 (09:24→21:13)
[2021-11-29 09:25] LABS: Calcium 8.3 mg/dL (8.4-10.2); Potassium 3.9 mmol/L (3.5-5.1)
[2021-11-29 12:03] LABS: Glucose,Whole Blood 79 mg/dL (75-99)
--- NOTE | 2021-11-29 12:12 | P.PN ---
Subjective Mr. Goncalves is somewhat improved today up in chair visiting with her son, O2 8 L per nasal cannula, still holding lisinopril, blood pressure controlled with metoprolol 50 mg daily hydralazine 25 mg 3 times a day, amlodipine 5 mg daily started by nephrology Patient otherwise states he is feeling somewhat better, pulmonary medicine started IV prednisone, continue DuoNeb updrafts [id number], reevaluating covid 19 by PCR, influenza by PCR and RSV ears nephrology also stopped metformin because of the acidosis reviewing the chart it looks like it was already stopped, but appears somewhat ambiguous, this patient's creatinine increased tod ay we'll assess daily improvements, sugars well controlled at this time as well 11/24/2021 currently at 8 L high flow nasal cannula maintaining O2 sats in the high 90s. Chest x-ray reporting bilateral granulomatous changes within the lungs and mediastinum, patchy bilateral airspace disease towards lung bases, possible pneumonia-further review as per pulmonary pending .afebrile .poor diet intake .Creatinine worsening up to 3.25. Telemetry reporting atrial fibrillation, heart rates 40s to 70s. Echo pending. Evaluated by cardiology recommending conservative treatment. 11/25/2021 oxygen requirements lessening, down to 6 L high flow nasal cannula, maintaining O2 sats in the 90s. Afebrile. Denies chest pain, palpitations. Telemetry atrial fibrillation, bradycardic. Echo reporting EF 50-55%, apical septal LV wall hypokinetic; beta lana held today with dose decreased during tomorrow as per cardiology. Diet intake failure, patient was able to consume some of the [place] that son brought in. BUN 120, creatinine 2.87. Renal ultrasound pending. Hyperglycemic.Feels better today, sitting up in chair. 11/26/2021 hypertensive, hydralazine increased. BUN increased to 122, creatinine down to 2.5. Nephrology following.Afebrile. Maintaining O2 sats in the 90s on 6 L nasal cannula. Continues on Tamiflu, nebulized bronchodilators. Family wishes to bring patient home with home care versus subacute rehab. 11/27/2021 steroid tapering in progress. maintaining O2 sats in the high 90s on 6 L nasal cannula. Beta lana has been held 3 days to date related to bradycardia .Telemetry reporting atrial fibrillation with bradycardia, pauses ;heart rates ranging from 30s to 50s, beta lana has been discontinued as per cardiology. Renal function continues improving, trending down with BUN 110, creatinine 2.6. Diet intake fair-fluctuates. 11/28/2021 renal function continues to improve. Sitting up in chair, attempting to eat lunch with son at bedside. Blood sugars controlled .Maintaining O2 sats in the 90s on 4 L nasal cannula. Denies chest pain, palpitations or increasing shortness of breath. Patient is a 2 person moderate assist and fatigues easily as per physical therapy evaluation. Subacute rehab re-discussed between PCP and son at bedside. 11/29/2021: This is an 86-year-old white male with influenza A. Patient is resting comfortably in his bed. Continues to have scrotal edema. Vital signs are stable. He is on room air 90-91%. 94% on 2 L O2 via nasal cannula. Respiratory is controlled. He is afebrile. Blood pressure has been slightly elevated. Pulse remains in the 60s improvement of his previous bradycardia. Labs today show a BUN of 90 chronic 2.16 with a GFR of 27. These continue to improve. Cardiology, pulmonology, nephrology notes reviewed today. Patient remains on albuterol and prednisone, and guaifenesin for his influenza. He is finished Tamiflu. Remains on amlodipine for blood pressure heart rate control. Metoprolol been discontinued. He remains anticoagulated on Elequis. He has aspirin ordered for antiplatelet effect. He continues on atorvastatin for hyperlipidemia. He is on glipizide and insulin scale along with Levemir 25 units at bedtime for diabetes. Objective Objective - Vital Signs Vital signs: Vital Signs Temp 97.6 F 11/29/21 09:20 Pulse 68 11/29/21 09:20 Resp 18 11/29/21 09:36 BP 141/65 11/29/21 09:20 Pulse Ox 91 L 11/29/21 09:36 Intake & Output 11/28/21 11/29/21 11/29/21 18:59 06:59 18:59 Intake Total 180 485 230 Output Total 350 625 Balance -170 -140 230 Intake: Oral 180 485 230 Output: Urine 350 625 Other: Voiding Method Ileal Conduit (Right) Ileal Conduit (Right) Ileal Conduit (Right) - Exam General: Sitting up in chair, weak, no acute distress Neck: Supple, no JVD Cardiac: [Heart irregular in rate and rhythm. No S3. No S4. No clicks, rubs. No murmur.= Lungs: Bilateral breath sounds equal, rhonchorous,scattered crackles and occasional expiratory wheezing Abdomen: Soft, nontender, positive bowel sounds, no guarding, no rigidity] Extremes: [No edema no clubbing or cyanosis Skin: [Normal dry, No rash.] The scrotal edema noted, improved from 1 day ago Neurologic: [No lateralizing deficits. CN II - XII grossly intact.] - Labs - Labs CBC & Chem 7: 11/22/21 05:42 11/29/21 08:38 Labs: Abnormal Lab Results - Last 24 Hours (Table) 11/28/21 11/28/21 11/29/21 Range/Units 16:54 19:52 08:38 BUN 98 H (9-20) mg/dL Creatinine 2.16 H (0.66-1.25) mg/dL Glucose 61 L (74-99) mg/dL POC Glucose (mg/dL) 258 H 452 H (75-99) mg/dL Calcium 8.3 L (8.4-10.2) mg/dL Assessment and Plan (1) Influenza Current Visit: Yes Status: Acute Code(s): J11.1 - FLU DUE TO UNIDENTIFIED INFLUENZA VIRUS W OTH RESP MANIFEST SNOMED Code(s): 8328364 (2) Acute kidney failure Current Visit: Yes Status: Acute Code(s): N17.9 - ACUTE KIDNEY FAILURE, UNSPECIFIED SNOMED Code(s): 59423857 (3) Non-STEMI (non-ST elevated myocardial infarction) Current Visit: Yes Status: Acute Code(s): I21.4 - NON-ST ELEVATION (NSTEMI) MYOCARDIAL INFARCTION SNOMED Code(s): 43240942 (4) Acute respiratory failure with hypoxia Current Visit: Yes Status: Acute Code(s): J96.01 - ACUTE RESPIRATORY FAILURE WITH HYPOXIA SNOMED Code(s): 16983096 (5) Diabetes Current Visit: Yes Status: Acute Code(s): E11.9 - TYPE 2 DIABETES MELLITUS WITHOUT COMPLICATIONS SNOMED Code(s): 04550097 (6) Chronic kidney disease (CKD) stage G3b/A1, moderately decreased glomerular filtration rate (GFR) between 30-44 mL/min/1.73 square meter and albuminuria creatinine ratio less than 30 mg/g Current Visit: Yes Status: Acute Code(s): N18.32 - CHRONIC KIDNEY DISEASE, STAGE 3B SNOMED Code(s): 676016076 (7) CAD (coronary artery disease) Current Visit: Yes Status: Acute Code(s): I25.10 - ATHSCL HEART DISEASE OF [place] CORONARY ARTERY W/O ANG PCTRS SNOMED Code(s): 66914644 (8) H/O primary malignant neoplasm of urinary bladder Current Visit: Yes Status: Acute Code(s): Z85.51 - PERSONAL HISTORY OF MALIGNANT NEOPLASM OF BLADDER SNOMED Code(s): 866291569 (9) Former smoker Current Visit: Yes Status: Acute Code(s): Z87.891 - PERSONAL HISTORY OF NICOTINE DEPENDENCE SNOMED Code(s): 0129692 (10) COPD (chronic obstructive pulmonary disease) Current Visit: Yes Status: Acute Code(s): J44.9 - CHRONIC OBSTRUCTIVE PULMONARY DISEASE, UNSPECIFIED SNOMED Code(s): 02608600 Plan: Repeat labs in am. Continue physical therapy. I will discuss with his daughter once again placement at [facility] as opposed to him going home. Continue oxygen as needed. Doubtful patient would do well at home. He'll be reevaluated next 24 hours.
--- NOTE | 2021-11-29 15:17 | P.PN ---
Subjective Progress Note Date: 11/29/21 Principal diagnosis: Respiratory failure. 86-year-old male patient was a transfer from the hospital because of worsening shortness of breath. The patient denies having any previous history of lung disease. He is known to have an extensive cardiac disease including coronary artery disease, previous bypass surgery, atrial fibrillation, chronic kidney disease, hypertension and hyperlipidemia and diabetes mellitus. The patient is not vaccinated for COVID 19. The patient started getting sick approximately 3-4 days ago. He was feeling exhausted and tired and fatigued and short of breath and congested. No documented fever. He was not having any chest pain. His troponin was found to be elevated at 4.5 highest and the repeat levels came back at 2.4 and 2.1. COVID 19 testing that was done in [facility] came back negative and the patient is not vaccinated. The patient however tested positive for influenza. He got transferred to the hospital for further ev aluation. His creatinine was elevated and the patient is known to have chronic kidney disease. He has white cell count at time of admission was 20.9. Creatinine was at 3.1. Sodium is at 136. Chest x-ray showed no acute pulmonary infiltrates. No altered mentation. No hemoptysis. No pleurisy. Cardiology will be evaluating the patient. The patient is currently on IV heparin. Echocardiac Antonio was also ordered. Progress note dated 11/24/2021. The patient is again seen in room 370. The patient's currently on 8 L high flow nasal O2, with saturations of 99%. He's not receiving any IV fluids. The patient's chest x-ray showed patchy bibasilar infiltrates. Laboratory data from today includes a normal sodium, potassium, chloride, and CO2. Anion gap is 13. BUN is 115 with a creatinine of 3.25. Glucose is 153. Chest x-ray from November 24 as above. Progress note dated 11/25/2021. The patient is again seen in room 370. Currently, he's on 6 L high flow nasal cannula. He's not receiving any IV fluids. His saturations are in the mid 90s. Yesterday, he was on 8 L high flow nasal cannula. Clinically, he appears relatively stable. He does have shortness of breath on exertion. Chest x-ray was reviewed. Today's labs include a sodium 139, potassium 4.2, chlorides 104, CO2 25, anion gap 10, BUN 120, and creatinine 2.87. Progress note dated 11/26/2021. The patient is again seen in room 370. He is 86 years of age. He remains on nasal O2 at 6 L. Not receiving any IV fluids. Saturations are in the mid 90s. He looks clinically stable. Labs today include a sodium 137, potassium 4.1, chlorides 102, CO2 24, anion gap 11, BUN 122, and creatinine 2.55. The patient's Solu-Medrol was reduced down to 40 mg IV push every 6 hours. Progress note dated 11/27/2021. 86-year-old male, again seen in room 370. The patient is currently on 6 L nasal cannula has been on 6 L the last 3 or 4 days. The patient is very lethargic and somnolent. He's not receiving any IV fluids. Today's labs include a sodium 140, potassium 4.2, chlorides 103, CO2 28, anion gap 9, BUN 110, and creatinine 2.60. Calcium is 8.7 with a magnesium of 2.2. No recent x-ray to report. Yesterday, I reduced the patient's Solu-Medrol down to 40 mg every 6 hours. He remains on amlodipine, Eliquis, aspirin, Lipitor, Glucotrol, Mucinex, hydralazine, NovoLog insulin, Levemir insulin, DuoNeb nebs, sublingual nitroglycerin, and Paxil. Progress note dated 11/28/2021. 86-year-old male, again seen in room 370. The patient has now been in the hospital for 7 days. He was admitted with a diagnosis of influenza infection. The patient has been weaned down the 4 L nasal cannula. He's not receiving any IV fluids. He remains somewhat lethargic. He does arouse. Does not appear to be in any respiratory distress or difficulty. Labs today include a sodium 137, potassium 4.1, chlorides 105, CO2 28, anion gap 4, BUN 104, and creatinine 2.43. Glucose is 110. Calcium 8.5, and magnesium is 2. Chest x-ray shows significant improvement in overall aeration, compared to a chest x-ray done on November 24. Progress note dated 11/29/2021. 86-year-old male, again seen in room 370. The patient has been weaned down to 2 L nasal cannula. On room air, his saturations are 87%. Hence, the patient st ill needs oxygen therapy. Clinically, the patient's doing much better. He is much more awake and alert. Labs today include a sodium 137, potassium 3.9, chlorides 105, CO2 27, anion gap 5, BUN 98, and creatinine 2.16. Calcium is 8.3 with a magnesium of 2.0. Objective - Vital Signs Vital signs: Vital Signs Temp 97.6 F 11/29/21 09:20 Pulse 68 11/29/21 09:20 Resp 18 11/29/21 12:03 BP 141/65 11/29/21 09:20 Pulse Ox 94 L 11/29/21 12:03 Intake & Output 11/28/21 11/29/21 11/29/21 18:59 06:59 18:59 Intake Total 180 485 230 Output Total 350 625 Balance -170 -140 230 Intake: Oral 180 485 230 Output: Urine 350 625 Other: Voiding Method Ileal Conduit (Right) Ileal Conduit (Right) Ileal Conduit (Right) - Exam Mild conversational dyspnea, oriented 3. Currently on 2 L nasal O2. Saturations are 94%. HEENT examination is grossly unremarkable. Neck supple. Full range of motion. No adenopathy thyromegaly or neck vein distention. Cardiovascular examination reveals regular rhythm rate. S1-S2 normal. No S3 or S4. No discernible murmur noted. Heart rate 67 bpm. Heart sounds are distant. Lungs reveal bilateral coarse rhonchi and expiratory wheezes. Scattered crackles are noted. Breath sounds are equal bilaterally. Breath sounds are mildly improved. Abdomen soft bowel sounds are heard. No masses or tenderness. Extremities are intact. No cyanosis clubbing or edema. Skin is without rash or lesion. Neurologic examination is brief but nonfocal. Diffuse muscle weakness. - Labs CBC & Chem 7: 11/22/21 05:42 11/29/21 08:38 Labs: Abnormal Lab Results - Last 24 Hours (Table) 11/28/21 11/28/21 11/29/21 Range/Units 16:54 19:52 08:38 BUN 98 H (9-20) mg/dL Creatinine 2.16 H (0.66-1.25) mg/dL Glucose 61 L (74-99) mg/dL POC Glucose (mg/dL) 258 H 452 H (75-99) mg/dL Calcium 8.3 L (8.4-10.2) mg/dL Assessment and Plan Assessment: Acute hypoxemic respiratory failure secondary to acute influenza. 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 Acute non-ST segment elevation myocardial infarction. Previous history of CAD, with bypass grafting. History of bladder cancer, status post cystectomy and urostomy. History of chronic kidney disease. Previous CVA. Type 2 diabetes mellitus. Plan: Plan dated 11/24/2021. The patient is maintained on 8 L high flow nasal O2. That can probably be weaned as the patient's saturations are 99%. The patient was placed on albuterol sulfate and ipratropium bromide, and started on Tamiflu, 75 mg twice a day. In addition, the patient was started on IV Solu-Medrol. The patient has been seen by cardiology. We'll continue to follow. Prognosis is guarded. Additional recommendations and suggestions where appropriate. Plan dated 11/25/2021. The patient is maintained on 6 L high flow nasal cannula. Clinically, the patient appears to be doing bit better. His saturations are in the mid 90s to high 90s. The patient is on DuoNeb, and Tamiflu. Labs, x-rays, and medications are reviewed. The patient was started on corticosteroids. His oxygenation has improved. Additional recommendations and suggestions are forthcoming. Prognosis is guarded. We will continue to follow this patient, and make recommendations where appropriate. Plan dated 11/26/2021. The patient's on 6 L high flow nasal cannula. Saturations are 99%. The oxygen can be titrated down. The patient's Solu-Medrol was reduced to 40 mg IV, every 6 hours. The patient remains on DuoNeb. We will continue to follow and make recommendations where appropriate. The patient has one day more of Tamiflu. Additional recommendations and suggestions are forthcoming. Prognosis is guarded. Plan dated 11/27/2021. The patient remains on 6 L nasal cannula. Saturations are between 99%. The oxygen can certainly be weaned down. In addition, I'll repeat a chest x-ray. The patient's Solu-Medrol was reduced down to 40 mg every 6 hours. The patient has completed his Tamiflu. Prognosis is guarded. We will continue to follow make recommendations where appropriate. Plan dated 11/28/2021. The patient appears to be both clinically and radiographically improved. The patient's down the 4 L nasal cannula. His respiratory status appears to be stable. The patient's Solu-Medrol was discontinued in favor of prednisone 20 mg a day. The patient has completed his Tamiflu. We'll continue to follow make recommendations where appropriate. Overall prognosis remains guarded. Discharge planning is underway. Plan dated 11/29/2021. The patient has been weaned down to 2 L. Saturations are 94%. On room air, the patient's saturations dropped to 87%. Clinically, the patient's doing much better. The patient is currently on prednisone 20 mg a day. Solu-Medrol has been discontinued. The patient will continue to be followed. Labs, x-rays, and medications are all reviewed. Overall prognosis is very guarded. Time with Patient: Less than 30
[2021-11-29 17:06] LABS: Glucose,Whole Blood 252 mg/dL (75-99)
[2021-11-29 21:02] LABS: Glucose,Whole Blood 372 mg/dL (75-99)
[2021-11-29] MEDS: ATORVASTATIN 10 MG TAB PO SCH (21:13)
[2021-11-29] MEDS: INSULIN DETEMIR (LEVEMIR) 100 UNIT/ML SYR SQ SCH (21:31)
[2021-11-30] MEDS: INSULIN ASPART (NovoLOG) 100 UNIT/ML VIAL SQ SCH ×8 (06:55→20:49)
[2021-11-30 06:56] LABS: Glucose,Whole Blood 57 mg/dL (75-99)
[2021-11-30 07:16] LABS: Glucose,Whole Blood 77 mg/dL (75-99)
[2021-11-30] MEDS: ALBUTEROL HFA INHALER INHALATION SCH ×4 (08:38→20:43)
[2021-11-30] MEDS: hydrALAZINE HCL 25 MG TAB PO SCH ×3 (08:42→20:16)
[2021-11-30] MEDS: guaiFENesin-DM 600/30MG 1 EACH TAB.ER.12H PO SCH ×2 (08:43→21:44)
[2021-11-30] MEDS: ASPIRIN 81 MG PO SCH (08:43)
[2021-11-30] MEDS: APIXABAN 2.5 MG TABLET PO SCH ×2 (08:43→20:15)
[2021-11-30] MEDS: PARoxetine 20 MG TAB PO SCH (08:43)
[2021-11-30] MEDS: glipiZIDE 10 MG TAB PO SCH (08:43)
[2021-11-30] MEDS: predniSONE 20 MG TAB PO SCH (08:43)
[2021-11-30] MEDS: amLODIPine 5 MG TAB PO SCH (08:43)
--- NOTE | 2021-11-30 09:30 | P.PN ---
Subjective Patient is seen in follow-up for acute kidney injury on chronic kidney disease. Renal function improving. Nonoliguric. Currently on 2 L high flow cannula. Oral intake fair. Resting in bed. No active complaints. Blood pressure stable. No changes overnight. Vital signs are stable. HEENT: Head exam is unremarkable. On nasal cannula. LUNGS: Breath sounds decreased. HEART: Rate and Rhythm are regular. ABDOMEN: Soft, no distention. EXTREMITITES: No edema. Objective - Vital Signs Vital signs: Vital Signs Temp 97.2 F L 11/30/21 08:38 Pulse 61 11/30/21 08:38 Resp 18 11/30/21 08:38 BP 147/66 11/30/21 08:38 Pulse Ox 94 L 11/30/21 08:38 Intake & Output 11/29/21 11/30/21 11/30/21 18:59 06:59 18:59 Intake Total 840 970 0 Output Total 600 350 Balance 240 620 0 Weight 72.5 kg Intake: IV 10 Invasive Line 2 10 Oral 830 970 0 Output: Urine 600 350 Other: Voiding Method Ileal Conduit (Right) Ileal Conduit (Right) Ileal Conduit (Right) - Labs CBC & Chem 7: 11/22/21 05:42 11/29/21 08:38 Labs: Abnormal Lab Results - Last 24 Hours (Table) 11/29/21 11/29/21 11/30/21 Range/Units 17:04 20:53 06:54 POC Glucose (mg/dL) 252 H 372 H 57 L (75-99) mg/dL Assessment and Plan Plan: Assessment: 1. Acute kidney injury secondary to ATN. Creatinine peaked at 3.25 this admission and 2.16 as of yesterday. No hydronephrosis noted on kidney ultrasound. BUN elevated due to acute kidney injury as well as steroids - trending down. No evidence of GI bleed. 2. Chronic kidney disease stage IIIB with creatinine 1.6 in October 2015. 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 No other records available. 3. History of bladder cancer status post urostomy. 4. Metabolic acidosis secondary to acute kidney injury. Was also on metformin. Improved. 5. Hypertension with chronic kidney disease. Stable. 6. Diabetes mellitus. 7. Influenza A infection. Plan: Continue to hold lisinopril. Avoid nephrotoxins. Continue to monitor renal function and urine output. Encouraged oral intake. No evidence of fluid overload on CXR. Morning labs pending.
[2021-11-30 11:02] LABS: Calcium 8.4 mg/dL (8.4-10.2); Potassium 4.5 mmol/L (3.5-5.1)
[2021-11-30 12:06] LABS: Glucose,Whole Blood 104 mg/dL (75-99)
--- NOTE | 2021-11-30 12:57 | P.PN ---
Subjective Mr. Goncalves is somewhat improved today up in chair visiting with her son, O2 8 L per nasal cannula, still holding lisinopril, blood pressure controlled with metoprolol 50 mg daily hydralazine 25 mg 3 times a day, amlodipine 5 mg daily started by nephrology Patient otherwise states he is feeling somewhat better, pulmonary medicine started IV prednisone, continue DuoNeb updrafts [id number], reevaluating covid 19 by PCR, influenza by PCR and RSV ears nephrology also stopped metformin because of the acidosis reviewing the chart it looks like it was already stopped, but appears somewhat ambiguous, this patient's creatinine increased tod ay we'll assess daily improvements, sugars well controlled at this time as well 11/24/2021 currently at 8 L high flow nasal cannula maintaining O2 sats in the high 90s. Chest x-ray reporting bilateral granulomatous changes within the lungs and mediastinum, patchy bilateral airspace disease towards lung bases, possible pneumonia-further review as per pulmonary pending .afebrile .poor diet intake .Creatinine worsening up to 3.25. Telemetry reporting atrial fibrillation, heart rates 40s to 70s. Echo pending. Evaluated by cardiology recommending conservative treatment. 11/25/2021 oxygen requirements lessening, down to 6 L high flow nasal cannula, maintaining O2 sats in the 90s. Afebrile. Denies chest pain, palpitations. Telemetry atrial fibrillation, bradycardic. Echo reporting EF 50-55%, apical septal LV wall hypokinetic; beta lana held today with dose decreased during tomorrow as per cardiology. Diet intake failure, patient was able to consume some of the [place] that son brought in. BUN 120, creatinine 2.87. Renal ultrasound pending. Hyperglycemic.Feels better today, sitting up in chair. 11/26/2021 hypertensive, hydralazine increased. BUN increased to 122, creatinine down to 2.5. Nephrology following.Afebrile. Maintaining O2 sats in the 90s on 6 L nasal cannula. Continues on Tamiflu, nebulized bronchodilators. Family wishes to bring patient home with home care versus subacute rehab. 11/27/2021 steroid tapering in progress. maintaining O2 sats in the high 90s on 6 L nasal cannula. Beta lana has been held 3 days to date related to bradycardia .Telemetry reporting atrial fibrillation with bradycardia, pauses ;heart rates ranging from 30s to 50s, beta lana has been discontinued as per cardiology. Renal function continues improving, trending down with BUN 110, creatinine 2.6. Diet intake fair-fluctuates. 11/28/2021 renal function continues to improve. Sitting up in chair, attempting to eat lunch with son at bedside. Blood sugars controlled .Maintaining O2 sats in the 90s on 4 L nasal cannula. Denies chest pain, palpitations or increasing shortness of breath. Patient is a 2 person moderate assist and fatigues easily as per physical therapy evaluation. Subacute rehab re-discussed between PCP and son at bedside. 11/29/2021: This is an 86-year-old white male with influenza A. Patient is resting comfortably in his bed. Continues to have scrotal edema. Vital signs are stable. He is on room air 90-91%. 94% on 2 L O2 via nasal cannula. Respiratory is controlled. He is afebrile. Blood pressure has been slightly elevated. Pulse remains in the 60s improvement of his previous bradycardia. Labs today show a BUN of 90 chronic 2.16 with a GFR of 27. These continue to improve. Cardiology, pulmonology, nephrology notes reviewed today. Patient remains on albuterol and prednisone, and guaifenesin for his influenza. He is finished Tamiflu. Remains on amlodipine for blood pressure heart rate control. Metoprolol been discontinued. He remains anticoagulated on Elequis. He has aspirin ordered for antiplatelet effect. He continues on atorvastatin for hyperlipidemia. He is on glipizide and insulin scale along with Levemir 25 units at bedtime for diabetes. November 30 2021: Patient remains comfortable in his room. Son is at bedside. I discussed with his daughter ECF and DNR. She will evaluate her father this afternoon to make those decisions. His son is at bedside. He has no complaints. He is feeling improved from his influenza A. The patient is afebrile. RA respiratory rate and blood pressure. Controlled. Pulse oximetry is 94% on 2 L O2 via nasal cannula. Chemistries today show a GFR of 25, BUN 99 creatinine 2.26. Microbiology pending. Notes from critical care/pulmonology, and nephrology reviewed. Overall the patient is improved. He does remain quite debilitated. He remains on albuterol HFA as needed. Amlodipine for blood pressure control, atorvastatin for hyperlipidemia, aspirin for antiplatelet effect, glipizide for diabetes. Guaifenesin 4 as mucolytic. Hydralazine for blood pressure control. Remains on insulin scale along with 7 units before meals and at bedtime. Levemir 25 units at bedtime. When necessary nitroglycerin. Prednisone 20 mg daily. Paxil 20 mg daily Objective Objective - Vital Signs Vital signs: Vital Signs Temp 97.2 F L 11/30/21 08:38 Pulse 61 11/30/21 08:38 Resp 18 11/30/21 08:38 BP 147/66 11/30/21 08:38 Pulse Ox 94 L 11/30/21 08:38 Intake & Output 11/29/21 11/30/21 11/30/21 18:59 06:59 18:59 Intake Total 840 970 260 Output Total 600 350 Balance 240 620 260 Weight 72.5 kg Intake: IV 10 Invasive Line 2 10 Oral 830 970 260 Output: Urine 600 350 Other: Voiding Method Ileal Conduit (Right) Ileal Conduit (Right) Ileal Conduit (Right) - Exam General: Sitting up in chair, weak, no acute distress Neck: Supple, no JVD Cardiac: [Heart irregular in rate and rhythm. No S3. No S4. No clicks, rubs. No murmur.= Lungs: Bilateral breath sounds equal, rhonchorous,scattered crackles and occasional expiratory wheezing Abdomen: Soft, nontender, positive bowel sounds, no guarding, no rigidity] Extremes: [No edema no clubbing or cyanosis Skin: [Normal dry, No rash.] The scrotal edema noted, improved from 1 day ago, there is now some penile discharge. Urostomy bag is clean dry and intact. Neurologic: [No lateralizing deficits. CN II - XII grossly intact.] - Labs - Labs CBC & Chem 7: 11/22/21 05:42 11/30/21 10:09 Labs: Abnormal Lab Results - Last 24 Hours (Table) 11/29/21 11/29/21 11/30/21 Range/Units 17:04 20:53 06:54 Sodium (137-145) mmol/L BUN (9-20) mg/dL Creatinine (0.66-1.25) mg/dL Glucose (74-99) mg/dL POC Glucose (mg/dL) 252 H 372 H 57 L (75-99) mg/dL 11/30/21 11/30/21 Range/Units 10:09 12:04 Sodium 135 L (137-145) mmol/L BUN 99 H (9-20) mg/dL Creatinine 2.26 H (0.66-1.25) mg/dL Glucose 120 H (74-99) mg/dL POC Glucose (mg/dL) 104 H (75-99) mg/dL Assessment and Plan (1) Influenza Current Visit: Yes Status: Acute Code(s): J11.1 - FLU DUE TO UNIDENTIFIED INFLUENZA VIRUS W OTH RESP MANIFEST SNOMED Code(s): 2829509 (2) Acute kidney failure Current Visit: Yes Status: Acute Code(s): N17.9 - ACUTE KIDNEY FAILURE, UNSPECIFIED SNOMED Code(s): 28330531 (3) Non-STEMI (non-ST elevated myocardial infarction) Current Visit: Yes Status: Acute Code(s): I21.4 - NON-ST ELEVATION (NSTEMI) MYOCARDIAL INFARCTION SNOMED Code(s): 99237823 (4) Acute respiratory failure with hypoxia Current Visit: Yes Status: Acute Code(s): J96.01 - ACUTE RESPIRATORY FAILURE WITH HYPOXIA SNOMED Code(s): 47159830 (5) Diabetes Current Visit: Yes Status: Acute Code(s): E11.9 - TYPE 2 DIABETES MELLITUS WITHOUT COMPLICATIONS SNOMED Code(s): 37758789 (6) Chronic kidney disease (CKD) stage G3b/A1, moderately decreased glomerular filtration rate (GFR) between 30-44 mL/min/1.73 square meter and albuminuria creatinine ratio less than 30 mg/g Current Visit: Yes Status: Acute Code(s): N18.32 - CHRONIC KIDNEY DISEASE, STAGE 3B SNOMED Code(s): 056331282 (7) CAD (coronary artery disease) Current Visit: Yes Status: Acute Code(s): I25.10 - ATHSCL HEART DISEASE OF [place] CORONARY ARTERY W/O ANG PCTRS SNOMED Code(s): 96253945 (8) H/O primary malignant neoplasm of urinary bladder Current Visit: Yes Status: Acute Code(s): Z85.51 - PERSONAL HISTORY OF MALIGNANT NEOPLASM OF BLADDER SNOMED Code(s): 152604762 (9) Former smoker Current Visit: Yes Status: Acute Code(s): Z87.891 - PERSONAL HISTORY OF NICOTINE DEPENDENCE SNOMED Code(s): 0438479 (10) COPD (chronic obstructive pulmonary disease) Current Visit: Yes Status: Acute Code(s): J44.9 - CHRONIC OBSTRUCTIVE PULMONARY DISEASE, UNSPECIFIED SNOMED Code(s): 90407073 Plan: Repeat labs in am. Continue physical therapy. I'll wait on his daughter's decision regarding DNR, and ECF placement for debility. Continue oxygen as needed. Doubtful patient would do well at home. Culture penile discharge. He'll be reevaluated next 24 hours.
--- NOTE | 2021-11-30 13:33 | P.PN ---
Subjective Progress Note Date: 11/30/21 Principal diagnosis: Respiratory failure. 86-year-old male patient was a transfer from the hospital because of worsening shortness of breath. The patient denies having any previous history of lung disease. He is known to have an extensive cardiac disease including coronary artery disease, previous bypass surgery, atrial fibrillation, chronic kidney disease, hypertension and hyperlipidemia and diabetes mellitus. The patient is not vaccinated for COVID 19. The patient started getting sick approximately 3-4 days ago. He was feeling exhausted and tired and fatigued and short of breath and congested. No documented fever. He was not having any chest pain. His troponin was found to be elevated at 4.5 highest and the repeat levels came back at 2.4 and 2.1. COVID 19 testing that was done in [facility] came back negative and the patient is not vaccinated. The patient however tested positive for influenza. He got transferred to the hospital for further ev aluation. His creatinine was elevated and the patient is known to have chronic kidney disease. He has white cell count at time of admission was 20.9. Creatinine was at 3.1. Sodium is at 136. Chest x-ray showed no acute pulmonary infiltrates. No altered mentation. No hemoptysis. No pleurisy. Cardiology will be evaluating the patient. The patient is currently on IV heparin. Echocardiac Antonio was also ordered. Progress note dated 11/24/2021. The patient is again seen in room 370. The patient's currently on 8 L high flow nasal O2, with saturations of 99%. He's not receiving any IV fluids. The patient's chest x-ray showed patchy bibasilar infiltrates. Laboratory data from today includes a normal sodium, potassium, chloride, and CO2. Anion gap is 13. BUN is 115 with a creatinine of 3.25. Glucose is 153. Chest x-ray from November 24 as above. Progress note dated 11/25/2021. The patient is again seen in room 370. Currently, he's on 6 L high flow nasal cannula. He's not receiving any IV fluids. His saturations are in the mid 90s. Yesterday, he was on 8 L high flow nasal cannula. Clinically, he appears relatively stable. He does have shortness of breath on exertion. Chest x-ray was reviewed. Today's labs include a sodium 139, potassium 4.2, chlorides 104, CO2 25, anion gap 10, BUN 120, and creatinine 2.87. Progress note dated 11/26/2021. The patient is again seen in room 370. He is 86 years of age. He remains on nasal O2 at 6 L. Not receiving any IV fluids. Saturations are in the mid 90s. He looks clinically stable. Labs today include a sodium 137, potassium 4.1, chlorides 102, CO2 24, anion gap 11, BUN 122, and creatinine 2.55. The patient's Solu-Medrol was reduced down to 40 mg IV push every 6 hours. Progress note dated 11/27/2021. 86-year-old male, again seen in room 370. The patient is currently on 6 L nasal cannula has been on 6 L the last 3 or 4 days. The patient is very lethargic and somnolent. He's not receiving any IV fluids. Today's labs include a sodium 140, potassium 4.2, chlorides 103, CO2 28, anion gap 9, BUN 110, and creatinine 2.60. Calcium is 8.7 with a magnesium of 2.2. No recent x-ray to report. Yesterday, I reduced the patient's Solu-Medrol down to 40 mg every 6 hours. He remains on amlodipine, Eliquis, aspirin, Lipitor, Glucotrol, Mucinex, hydralazine, NovoLog insulin, Levemir insulin, DuoNeb nebs, sublingual nitroglycerin, and Paxil. Progress note dated 11/28/2021. 86-year-old male, again seen in room 370. The patient has now been in the hospital for 7 days. He was admitted with a diagnosis of influenza infection. The patient has been weaned down the 4 L nasal cannula. He's not receiving any IV fluids. He remains somewhat lethargic. He does arouse. Does not appear to be in any respiratory distress or difficulty. Labs today include a sodium 137, potassium 4.1, chlorides 105, CO2 28, anion gap 4, BUN 104, and creatinine 2.43. Glucose is 110. Calcium 8.5, and magnesium is 2. Chest x-ray shows significant improvement in overall aeration, compared to a chest x-ray done on November 24. Progress note dated 11/29/2021. 86-year-old male, again seen in room 370. The patient has been weaned down to 2 L nasal cannula. On room air, his saturations are 87%. Hence, the patient st ill needs oxygen therapy. Clinically, the patient's doing much better. He is much more awake and alert. Labs today include a sodium 137, potassium 3.9, chlorides 105, CO2 27, anion gap 5, BUN 98, and creatinine 2.16. Calcium is 8.3 with a magnesium of 2.0. Progress note dated 11/30/2021. 86-year-old male, again seen in room 370. The patient was admitted with a diagnosis of influenza pneumonia. Initially, he required high concentrations of oxygen. He's been weaned down to 2 L. He's not receiving any IV fluids. The patient appears be much more stable. Today's labs include a sodium 135, potassium 4.5, chloride 101, CO2 24, anion gap 10, BUN 99, and creatinine 2.26. Glucose 120. Calcium 8.4, and magnesium 2.0. Objective - Vital Signs Vital signs: Vital Signs Temp 97.2 F L 11/30/21 08:38 Pulse 61 11/30/21 08:38 Resp 18 11/30/21 08:38 BP 147/66 11/30/21 08:38 Pulse Ox 94 L 11/30/21 08:38 Intake & Output 11/29/21 11/30/21 11/30/21 18:59 06:59 18:59 Intake Total 840 970 260 Output Total 600 350 Balance 240 620 260 Weight 72.5 kg Intake: IV 10 Invasive Line 2 10 Oral 830 970 260 Output: Urine 600 350 Other: Voiding Method Ileal Conduit (Right) Ileal Conduit (Right) Ileal Conduit (Right) - Exam Mild conversational dyspnea, oriented 3. Currently on 2 L nasal O2. Saturat ions are 95%. HEENT examination is grossly unremarkable. Neck supple. Full range of motion. No adenopathy thyromegaly or neck vein distention. Cardiovascular examination reveals regular rhythm rate. S1-S2 normal. No S3 or S4. No discernible murmur noted. Heart rate 61 bpm. Heart sounds are distant. Lungs reveal bilateral coarse rhonchi and expiratory wheezes. Scattered crackles are noted. Breath sounds are equal bilaterally. Breath sounds are mildly improved. Abdomen soft bowel sounds are heard. No masses or tenderness. Extremities are intact. No cyanosis clubbing or edema. Skin is without rash or lesion. Neurologic examination is brief but nonfocal. Diffuse muscle weakness. - Labs CBC & Chem 7: 11/22/21 05:42 11/30/21 10:09 Labs: Abnormal Lab Results - Last 24 Hours (Table) 11/29/21 11/29/21 11/30/21 Range/Units 17:04 20:53 06:54 Sodium (137-145) mmol/L BUN (9-20) mg/dL Creatinine (0.66-1.25) mg/dL Glucose (74-99) mg/dL POC Glucose (mg/dL) 252 H 372 H 57 L (75-99) mg/dL 11/30/21 11/30/21 Range/Units 10:09 12:04 Sodium 135 L (137-145) mmol/L BUN 99 H (9-20) mg/dL Creatinine 2.26 H (0.66-1.25) mg/dL Glucose 120 H (74-99) mg/dL POC Glucose (mg/dL) 104 H (75-99) mg/dL Assessment and Plan Assessment: Acute hypoxemic respiratory failure secondary to acute influenza, improved. 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 Acute non-ST segment elevation myocardial infarction. Previous history of CAD, with bypass grafting. History of bladder cancer, status post cystectomy and urostomy. History of chronic kidney disease. Previous CVA. Type 2 diabetes mellitus. Plan: Plan dated 11/24/2021. The patient is maintained on 8 L high flow nasal O2. That can probably be weaned as the patient's saturations are 99%. The patient was placed on albuterol sulfate and ipratropium bromide, and started on Tamiflu, 75 mg twice a day. In addition, the patient was started on IV Solu-Medrol. The patient has been seen by cardiology. We'll continue to follow. Prognosis is guarded. Add itional recommendations and suggestions where appropriate. Plan dated 11/25/2021. The patient is maintained on 6 L high flow nasal cannula. Clinically, the patient appears to be doing bit better. His saturations are in the mid 90s to high 90s. The patient is on DuoNeb, and Tamiflu. Labs, x-rays, and medications are reviewed. The patient was started on corticosteroids. His oxygenation has improved. Additional recommendations and suggestions are forthcoming. Prognosis is guarded. We will continue to follow this patient, and make recommendations where appropriate. Plan dated 11/26/2021. The patient's on 6 L high flow nasal cannula. Saturations are 99%. The oxygen can be titrated down. The patient's Solu-Medrol was reduced to 40 mg IV, every 6 hours. The patient remains on DuoNeb. We will continue to follow and make recommendations where appropriate. The patient has one day more of Tamiflu. Additional recommendations and suggestions are forthcoming. Prognosis is guarde d. Plan dated 11/27/2021. The patient remains on 6 L nasal cannula. Saturations are between 99%. The oxygen can certainly be weaned down. In addition, I'll repeat a chest x-ray. The patient's Solu-Medrol was reduced down to 40 mg every 6 hours. The patient has completed his Tamiflu. Prognosis is guarded. We will continue to follow make recommendations where appropriate. Plan dated 11/28/2021. The patient appears to be both clinically and radiographically improved. The patient's down the 4 L nasal cannula. His respiratory status appears to be stable. The patient's Solu-Medrol was discontinued in favor of prednisone 20 mg a day. The patient has completed his Tamiflu. We'll continue to follow make recommendations where appropriate. Overall prognosis remains guarded. Discharg e planning is underway. Plan dated 11/29/2021. The patient has been weaned down to 2 L. Saturations are 94%. On room air, the patient's saturations dropped to 87%. Clinically, the patient's doing much better. The patient is currently on prednisone 20 mg a day. Solu-Medrol has been discontinued. The patient will continue to be followed. Labs, x-rays, and medications are all reviewed. Overall prognosis is very guarded. Plan dated 11/30/2021. Currently, the patient's doing much better. His been weaned down to 2 L nasal cannula. We will continue to follow make recommendations where appropriate. Saturations are 94-95%. He's not receiving any IV fluids. Labs, x-rays, and medications are reviewed. Solu-Medrol has been discontinued in favor of prednisone. Overall prognosis is guarded. Time with Patient: Less than 30
[2021-11-30 16:55] LABS: Glucose,Whole Blood 91 mg/dL (75-99)
[2021-11-30] MEDS: ATORVASTATIN 10 MG TAB PO SCH (20:16)
[2021-11-30 20:35] LABS: Glucose,Whole Blood 263 mg/dL (75-99)
[2021-11-30] MEDS: INSULIN DETEMIR (LEVEMIR) 100 UNIT/ML SYR SQ SCH (20:50)
[2021-12-01 05:59] LABS: Glucose,Whole Blood 178 mg/dL (75-99)
[2021-12-01] MEDS: INSULIN ASPART (NovoLOG) 100 UNIT/ML VIAL SQ SCH ×8 (06:07→21:00)
[2021-12-01] MEDS: glipiZIDE 10 MG TAB PO SCH (06:07)
[2021-12-01] MEDS: ALBUTEROL HFA INHALER INHALATION SCH ×4 (07:53→20:31)
[2021-12-01] MEDS: hydrALAZINE HCL 25 MG TAB PO SCH ×3 (10:01→21:00)
[2021-12-01] MEDS: amLODIPine 5 MG TAB PO SCH (10:01)
[2021-12-01] MEDS: predniSONE 20 MG TAB PO SCH (10:01)
[2021-12-01] MEDS: PARoxetine 20 MG TAB PO SCH (10:01)
[2021-12-01] MEDS: guaiFENesin-DM 600/30MG 1 EACH TAB.ER.12H PO SCH ×2 (10:01→21:01)
[2021-12-01] MEDS: APIXABAN 2.5 MG TABLET PO SCH ×2 (10:01→21:01)
[2021-12-01] MEDS: ASPIRIN 81 MG PO SCH (10:01)
[2021-12-01 10:10] LABS: Calcium 8.2 mg/dL (8.4-10.2); Potassium 4.6 mmol/L (3.5-5.1)
[2021-12-01 10:11] LABS: Magnesium 2.2 mg/dL (1.6-2.3)
--- NOTE | 2021-12-01 11:11 | P.PN ---
Subjective Progress Note Date: 12/01/21 86-year-old male patient was a transfer from the hospital because of worsening shortness of breath. The patient denies having any previous history of lung disease. He is known to have an extensive cardiac disease including coronary artery disease, previous bypass surgery, atrial fibrillation, chronic kidney disease, hypertension and hyperlipidemia and diabetes mellitus. The patient is not vaccinated for COVID 19. On today's evaluation of 12/01/20212021 the patient is being seen for a follow-up. This is a 86-year-old male patient was diagnosed having an acute influenza infection and the last chest x-ray was on 11/27/2021 and it showed chronic microcalcifications throughout the lung meza bilaterally, and indication of a previous adenomatous disease chest such as an old right insula pneumonia or an old influenza pneumonia. Nevertheless, there was no evidence of any acute consolidation. There were multiple calcified adenoma scattered throughout the lung meza bilaterally and the patient had sternotomy changes and multiple sternal wires that were fractures. There was also evidence of calcified mediastinal and hilar lymph nodes and obviously this raises concern for an old TB also. In any rate, the patient's creatinine is stable at 2.3, BUN is at 103, sodium is at 134, the patient is currently on albuterol HFA, Mucinex DM for cough and congestion, and the patient was taken off IV Solu Medrol and put on prednisone 20 mg by mouth daily. The patient is currently on 3 L of oxy gen by nasal cannula with a pulse ox of 92%. Noted earlier, he was on room air oxygen with a pulse ox of 92%. His COVID 19 testing was negative. He do not to be a positive for influenza A. He has been treated with Tamiflu and he has completed the course Objective - Vital Signs Vital signs: Vital Signs Temp 98.7 F 12/01/21 09:55 Pulse 63 12/01/21 09:55 Resp 16 12/01/21 09:55 BP 158/72 12/01/21 09:55 Pulse Ox 92 L 12/01/21 09:55 Intake & Output 11/30/21 12/01/21 12/01/21 18:59 06:59 18:59 Intake Total 1040 Output Total 550 400 Balance 490 -400 Weight 72.5 kg Intake: Oral 1040 Output: Urine 550 400 Other: Voiding Method Ileal Conduit (Right) Ileal Conduit (Right) # Voids 350 - Exam Mild conversational dyspnea, oriented 3. Currently on 2 L nasal O2. Saturations are 95%. HEENT examination is grossly unremarkable. Neck supple. Full range of motion. No adenopathy thyromegaly or neck vein distention. Cardiovascular examination reveals regular rhythm rate. S1-S2 normal. No S3 or S4. No discernible murmur noted. Heart rate 61 bpm. Heart sounds are distant. Lungs reveal bilateral coarse rhonchi and expiratory wheezes. Scattered crackles are noted. Breath sounds are equal bilaterally. Breath sounds are mildly improved. Abdomen soft bowel sounds are heard. No masses or tenderness. Extremities are intact. No cyanosis clubbing or edema. Skin is without rash or lesion. Neurologic examination is brief but nonfocal. Diffuse muscle weakness. - Labs CBC & Chem 7: 11/22/21 05:42 12/01/21 09:24 Labs: Abnormal Lab Results - Last 24 Hours (Table) 11/30/21 11/30/21 11/30/21 Range/Units 10:09 12:04 20:12 Sodium 135 L (137-145) mmol/L BUN 99 H (9-20) mg/dL Creatinine 2.26 H (0.66-1.25) mg/dL Glucose 120 H (74-99) mg/dL POC Glucose (mg/dL) 104 H 263 H (75-99) mg/dL Calcium (8.4-10.2) mg/dL 12/01/21 12/01/21 Range/Units 05:40 09:24 Sodium 134 L (137-145) mmol/L BUN 103 H* (9-20) mg/dL Creatinine 2.31 H (0.66-1.25) mg/dL Glucose 145 H (74-99) mg/dL POC Glucose (mg/dL) 178 H (75-99) mg/dL Calcium 8.2 L (8.4-10.2) mg/dL Microbiology - Last 24 Hours (Table) 11/30/21 12:46 Gram Stain - Preliminary Other - Other Wound Culture - Preliminary 11/30/21 12:46 Anaerobic Culture - Preliminary Genital Assessment and Plan Plan: 1 acute influenza A bronchitis with secondary shortness of breath the patient completed the course of Tamiflu. The patient also was treated with IV Solu- Medrol and the patient is currently on 20 mg of prednisone. The patient an acute hypoxic respiratory failure and currently is on 2 L of oxygen by nasal cannula 2 bilateral pulmonary microcalcification consistent with a old varicella pneumonia 3 acute hypoxic respiratory failure secondary to above currently on 2 L of oxygen by nasal cannula 4 acute non-ST segment elevation myocardial infarction and the patient's family of any chest pain. Cardiology is on the case. 5 previous history of coronary artery disease, previous CABG 5 history of bladder cancer, post cystectomy and urostomy 5 chronic kidney disease 6 [place] CVA 7 Diabetes Mel[place] type 2 Plan The patient will be kept on 2 l nasal cannula for now. We'll put the patient on DuoNeb nebulized treatments around the clock 4 times a day Completed Tamiflu Prednisone 20 mg as part of taper COVID 19 by PCR was negative Continue aspirin Continue metoprolol 50 mg by mouth daily Echocardiogram Levemir insulin 25 units at bedtime in addition to 7 units of NovoLog with meals and a sliding scale coverage Continue anticoagulation with Eliquis The patient has shown some signs of improvement. However overall, he remains quite debilitated and family is considering the possibility of hospice. We will continue following up this patient on an as-needed basis.
[2021-12-01 12:07] LABS: Glucose,Whole Blood 148 mg/dL (75-99)
--- NOTE | 2021-12-01 13:03 | PN ---
PROGRESS NOTE Patient is seen for followup for acute kidney injury. He has underlying influenza type A pneumonia. Renal function has been stable, with creatinine staying at 2.2 to 2.3 mg/dL. Nursing staff states that there may be conversation regarding hospice today. On examination, blood pressure 158/72, heart rate 63 per minute. Patient is afebrile. Examination of lower extremities shows no significant edema. Abdomen is soft, nontender. Labs show sodium 134, potassium 4.6, chloride 104, BUN 103, serum creatinine 2.3. ASSESSMENT: 1. Acute kidney injury, acute tubular necrosis. Renal function fairly stable. Continue to encourage increased oral intake. Hold off on MARY inhibitors. No evidence of hydronephrosis on ultrasound. 2. Chronic kidney disease, stage 3B, with baseline creatinine 1.6 in October of 2015. Etiology is likely diabetic kidney disease. 3. History of bladder cancer, status post urostomy. 4. Metabolic acidosis associated with acute kidney injury as well as possibly related to metformin, currently off of metformin. 5. Hypertension with chronic kidney disease. 6. Type 2 diabetes. 7. Influenza A infection. PLAN: Continue to encourage increased oral intake. Avoid hypotension. MMODL / IJN: [id number] /
[2021-12-01 16:21] LABS: Glucose,Whole Blood 280 mg/dL (75-99)
[2021-12-01 20:24] LABS: Glucose,Whole Blood 411 mg/dL (75-99)
[2021-12-01 20:35] LABS: Glucose,Whole Blood 379 mg/dL (75-99)
[2021-12-01] MEDS: INSULIN DETEMIR (LEVEMIR) 100 UNIT/ML SYR SQ SCH (20:59)
[2021-12-01] MEDS: ATORVASTATIN 10 MG TAB PO SCH (21:01)
[2021-12-02 06:24] LABS: Glucose,Whole Blood 89 mg/dL (75-99)
[2021-12-02] MEDS: INSULIN ASPART (NovoLOG) 100 UNIT/ML VIAL SQ SCH ×8 (06:25→20:38)
[2021-12-02] MEDS: glipiZIDE 10 MG TAB PO SCH (06:52)
[2021-12-02] MEDS: guaiFENesin-DM 600/30MG 1 EACH TAB.ER.12H PO SCH ×2 (09:45→20:37)
[2021-12-02] MEDS: predniSONE 20 MG TAB PO SCH (09:45)
[2021-12-02] MEDS: hydrALAZINE HCL 25 MG TAB PO SCH ×3 (09:45→20:37)
[2021-12-02] MEDS: amLODIPine 5 MG TAB PO SCH (09:45)
[2021-12-02] MEDS: APIXABAN 2.5 MG TABLET PO SCH ×2 (09:45→20:37)
[2021-12-02] MEDS: PARoxetine 20 MG TAB PO SCH (09:45)
[2021-12-02] MEDS: ASPIRIN 81 MG PO SCH (09:45)
[2021-12-02] MEDS: ALBUTEROL HFA INHALER INHALATION SCH ×4 (09:54→20:32)
--- NOTE | 2021-12-02 11:05 | P.DS ---
Providers Date of admission: 11/21/21 14:02 Expected date of discharge: 12/02/21 Attending physician: Delmer Son Consults: 11/22/21 20:09 Consult Physician Urgent Consulting Provider: Janette Chavis Consult Reason/Comments: SOB Do you want consulting provider notified?: Yes, Notify in am 11/22/21 20:11 Consult Physician Urgent Consulting Provider: Ashish Huston Consult Reason/Comments: Elevated kidney function Do you want consulting provider notified?: Yes, Notify in am Primary care physician: [facility] Course: Final Diagnoses: Acute NSTEMI, conservative management Acute Influenza A ,bronchitis Abnormal chest x-ray, bilateral pulmonary microcalcifications ,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 Acute hypoxic respiratory failure secondary to the above Acute kidney injury secondary to ATN Chronic kidney disease stage IIIB, baseline creatinine 1.6 Diabetes mellitus with Hyperglycemia CAD, history of CABG COPD Former nicotine dependence History of bladder CA with urostomy Hospital course:Mr. Goncalves is somewhat improved today up in chair visiting with her son, O2 8 L per nasal cannula, still holding lisinopril, blood pressure controlled with metoprolol 50 mg daily hydralazine 25 mg 3 times a day, amlodipine 5 mg daily started by nephrology Patient otherwise states he is feeling somewhat better, pulmonary medicine started IV prednisone, continue DuoNeb updrafts [id number], reevaluating covid 19 by PCR, influenza by PCR and RSV ears nephrology also stopped metformin because of the acidosis reviewing the chart it looks like it was already stopped, but appears somewhat ambiguous, this patient's creatinine increased today we'll assess daily improvements, sugars well controlled at this time as well 11/24/2021 currently at 8 L high flow nasal cannula maintaining O2 sats in the high 90s. Chest x-ray reporting bilateral granulomatous changes within the lungs and mediastinum, patchy bilateral airspace disease towards lung bases, possible pneumonia-further review as per pulmonary pending .afebrile .poor diet intake .Creatinine worsening up to 3.25. Telemetry reporting atrial fibrillation, heart rates 40s to 70s. Echo pending. Evaluated by cardiology recommending conservative treatment. 11/25/2021 oxygen requirements lessening, down to 6 L high flow nasal cannula, maintaining O2 sats in the 90s. Afebrile. Denies chest pain, palpitations. Telemetry atrial fibrillation, bradycardic. Echo reporting EF 50-55%, apical septal LV wall hypokinetic; beta lana held today with dose decreased during tomorrow as per cardiology. Diet intake failure, patient was able to consume some of the [place] that son brought in. BUN 120, creatinine 2.87. Renal ultrasound pending. Hyperglycemic.Feels better today, sitting up in chair. 11/26/2021 hypertensive, hydralazine increased. BUN increased to 122, creatinine down to 2.5. Nephrology following.Afebrile. Maintaining O2 sats in the 90s on 6 L nasal cannula. Continues on Tamiflu, nebulized bronchodilators. Family wishes to bring patient home with home care versus subacute rehab. 11/27/2021 steroid tapering in progress. maintaining O2 sats in the high 90s on 6 L nasal cannula. Beta lana has been held 3 days to date related to bradycardia .Telemetry reporting atrial fibrillation with bradycardia, pauses ;heart rates ranging from 30s to 50s, beta lana has been discontinued as per cardiology. Renal function continues improving, trending down with BUN 110, creatinine 2.6. Diet intake fair-fluctuates. 11/28/2021 renal function continues to improve. Sitting up in chair, attempting to eat lunch with son at bedside. Blood sugars controlled .Maintaining O2 sats in the 90s on 4 L nasal cannula. Denies chest pain, palpitations or increasing shortness of breath. Patient is a 2 person moderate assist and fatigues easily as per physical therapy evaluation. Subacute rehab re-discussed between PCP and son at bedside. 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 Completed Tamiflu treatment for influenza A. Continues on oral prednisone, Mucinex DM, albuterol HFA Maintaining O2 sats in the 90s on 3 L nasal cannula. Lung sounds mildly improved, continues to have scattered coarse rhonchi and crackles throughout with expiratory wheezing. Patient remains quite debilitated and family has declined ARMANDO multiple times over the last week. Family met with hospice and has decided to take patient home with hospice. Patient will be discharged home with hospice in a stable condition with guarded prognosis pending medical equipment set up an home. The impression and plan of care has been dictated as directed. : I performed a history and examination of this patient, discussed the same with the dictator. I agree with the dictator's note ,documented as a scribe. Any additional findings or plans will be noted. Patient Condition at Discharge: Stable Plan - Discharge Summary Discharge Rx Participant: Yes New Discharge Prescriptions: New Insulin Detemir (Levemir) [Levemir] 20 unit SQ HS #10 ml guaiFENesin-DM 600/30MG [Mucinex Dm] 1 each PO Q12HR tablet amLODIPine [Norvasc] 5 mg PO DAILY #30 tab predniSONE 10 mg PO DIRECTED #9 tab Albuterol Inhaler [Ventolin Hfa Inhaler] 2 puff INHALATION RT-QID #1 inh Ipratropium-Albuterol Nebulize [Duoneb 0.5 mg-3 mg/3 ml Soln] 3 ml INHALATION QID #90 ml Continue PARoxetine [Paxil] 20 mg PO DAILY glipiZIDE [Glucotrol] 10 mg PO AC-BRKFST Simvastatin [Zocor] 20 mg PO HS Apixaban [Eliquis] 2.5 mg PO BID Aspirin EC [Ecotrin Low Dose] 81 mg PO DAILY Nitroglycerin Sl Tabs [Nitrostat] 0.4 mg SL Q5M PRN PRN Reason: Chest Pain Discontinued lisinopriL [Prinivil] 20 mg PO DAILY metFORMIN HCL 500 mg PO BID Discharge Medication List PARoxetine [Paxil] 20 mg PO DAILY 11/07/15 [History] glipiZIDE [Glucotrol] 10 mg PO AC-BRKFST 11/07/15 [History] Apixaban [Eliquis] 2.5 mg PO BID 11/21/21 [History] Aspirin EC [Ecotrin Low Dose] 81 mg PO DAILY 11/21/21 [History] Nitroglycerin Sl Tabs [Nitrostat] 0.4 mg SL Q5M PRN 11/21/21 [History] Simvastatin [Zocor] 20 mg PO HS 11/21/21 [History] Albuterol Inhaler [Ventolin Hfa Inhaler] 2 puff INHALATION RT-QID #1 inh 12/02/21 [Rx] Insulin Detemir (Levemir) [Levemir] 20 unit SQ HS #10 ml 12/02/21 [Rx] Ipratropium-Albuterol Nebulize [Duoneb 0.5 mg-3 mg/3 ml Soln] 3 ml INHALATION QID #90 ml 12/02/21 [Rx] amLODIPine [Norvasc] 5 mg PO DAILY #30 tab 12/02/21 [Rx] guaiFENesin-DM 600/30MG [Mucinex Dm] 1 each PO Q12HR tablet 12/02/21 [Rx] predniSONE 10 mg PO DIRECTED #9 tab 12/02/21 [Rx] Follow up Appointment(s)/Referral(s): Delmer Son Jr, [Primary Care Provider] - As Needed [facility], [NON-STAFF] - Activity/Diet/Wound Care/Special Instructions: Patient will require 3L home O2 due to COPD. Discharge Disposition: HOME WITH HOSPICE
--- NOTE | 2021-12-02 12:03 | P.PN ---
Subjective Patient is seen in follow-up for acute kidney injury on chronic kidney disease. Renal function improving. Nonoliguric. Currently on 3 L nasal cannula. Oral intake fair. Resting in bed. No active complaints. Blood pressure stable. Vital signs are stable. HEENT: Head exam is unremarkable. On nasal cannula. LUNGS: Breath sounds decreased. HEART: Rate and Rhythm are regular. ABDOMEN: Soft, no distention. EXTREMITITES: No edema. Objective - Vital Signs Vital signs: Vital Signs Temp 97.4 F L 12/02/21 08:29 Pulse 58 L 12/02/21 08:29 Resp 18 12/02/21 08:29 BP 150/63 12/02/21 08:29 Pulse Ox 97 12/02/21 08:29 Intake & Output 12/01/21 12/02/21 12/02/21 18:59 06:59 18:59 Intake Total 20 100 Output Total 800 900 Balance -780 100 -900 Intake: Oral 20 100 Output: Urine 800 900 Other: Voiding Method Ileal Conduit (Right) Ileal Conduit (Right) Ileal Conduit (Right) - Labs CBC & Chem 7: 11/22/21 05:42 12/01/21 09:24 Labs: Abnormal Lab Results - Last 24 Hours (Table) 12/01/21 12/01/21 12/01/21 Range/Units 12:06 16:19 20:11 POC Glucose (mg/dL) 148 H 280 H 411 H (75-99) mg/dL 12/01/21 Range/Units 20:31 POC Glucose (mg/dL) 379 H (75-99) mg/dL Assessment and Plan Plan: Assessment: 1. Acute kidney injury secondary to ATN. Creatinine peaked at 3.25 this admission and 2.31 as of yesterday. No hydronephrosis noted on kidney ultrasound. BUN elevated due to acute kidney injury as well as steroids. No evidence of GI bleed. 2. Chronic kidney disease stage IIIB with creatinine 1.6 in October 2015. 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 No other records available. 3. History of bladder cancer status post urostomy. 4. Metabolic acidosis secondary to acute kidney injury. Was also on metformin. Improved. 5. Hypertension with chronic kidney disease. Stable. 6. Diabetes mellitus. 7. Influenza A infection. Plan: Continue to hold lisinopril. Avoid nephrotoxins. Continue to monitor renal function and urine output. Encouraged oral intake.
[2021-12-02 12:56] LABS: Glucose,Whole Blood 70 mg/dL (75-99)
[2021-12-02 13:06] VITALS: BMI 23.6
[2021-12-02 16:40] LABS: Glucose,Whole Blood 154 mg/dL (75-99)
[2021-12-02 20:15] LABS: Glucose,Whole Blood 224 mg/dL (75-99)
[2021-12-02] MEDS: ATORVASTATIN 10 MG TAB PO SCH (20:37)
[2021-12-02] MEDS: INSULIN DETEMIR (LEVEMIR) 100 UNIT/ML SYR SQ SCH (20:38)
[2021-12-03 04:27] VITALS: RESP 18
[2021-12-03 06:04] LABS: Glucose,Whole Blood 69 mg/dL (75-99)
[2021-12-03] MEDS: INSULIN ASPART (NovoLOG) 100 UNIT/ML VIAL SQ SCH ×4 (06:08→12:11)
[2021-12-03 06:13] LABS: Glucose,Whole Blood 72 mg/dL (75-99)
[2021-12-03 07:46] VITALS: TEMP 97.8
[2021-12-03] MEDS: ALBUTEROL HFA INHALER INHALATION SCH ×2 (08:30→11:51)
[2021-12-03] MEDS: ASPIRIN 81 MG PO SCH (10:41)
[2021-12-03] MEDS: predniSONE 20 MG TAB PO SCH (10:41)
[2021-12-03] MEDS: glipiZIDE 10 MG TAB PO SCH (10:41)
[2021-12-03] MEDS: PARoxetine 20 MG TAB PO SCH (10:41)
[2021-12-03] MEDS: hydrALAZINE HCL 25 MG TAB PO SCH (10:41)
[2021-12-03] MEDS: APIXABAN 2.5 MG TABLET PO SCH (10:41)
[2021-12-03] MEDS: amLODIPine 5 MG TAB PO SCH (10:41)
[2021-12-03] MEDS: guaiFENesin-DM 600/30MG 1 EACH TAB.ER.12H PO SCH (10:42)
[2021-12-03 11:22] LABS: Glucose,Whole Blood 62 mg/dL (75-99)
[2021-12-03 11:44] LABS: Glucose,Whole Blood 63 mg/dL (75-99)
[2021-12-03 12:07] VITALS: BP 166/72; PULSE 60
[2021-12-03 12:12] LABS: Glucose,Whole Blood 76 mg/dL (75-99)
--- NOTE | 2021-12-03 16:06 | PN ---
PROGRESS NOTE Patient is seen for followup for acute kidney injury. Renal function had improved. However, no labs done after 12/01/2021. There are plans for discharge. EXAMINATION: Today patient is comfortable. Blood pressure this morning 151/69, heart rate 56 per minute. He is afebrile. Examination of the heart S1, S2. Examination of the lungs, decreased breath sounds at the bases. Abdomen is soft. Examination of lower extremities shows no significant edema. INFORMATICA exam is grossly intact. LAB: Show sodium 134, potassium 4.6, BUN 103, serum creatinine 2.3. ASSESSMENT: 1. Acute kidney injury, acute tubular necrosis. Renal function is stable. Check labs, if the patient is not discharged. MARY inhibitors on hold. 2. Chronic kidney disease stage 3B. Baseline creatinine 1.6 in October 2015. Etiology, diabetic kidney disease. 3. History of bladder cancer status post urostomy. 4. Metabolic acidosis associated with acute kidney injury and possibly related to metformin. 5. Hypertension with chronic kidney disease. 6. Influenza A infection. PLAN: Okay for discharge. Repeat labs as outpatient. MMODL / IJN: [id number] /
== END 2021-12-03 15:39 | disposition hospice, home (50) | DRG 280 ==
LOC: EC 11:38 → 3SCARD 14:02
PROVIDERS: ADMIT Family Medicine; ATTEND Family Medicine
PROC: 5A0935A Assistance with Respiratory Ventilation, Less than 24 Consecutive Hours, High Flow/Velocity Cannula (ICD-10-PCS; principal; 2021-11-22)
PROC: 5A0945A Assistance with Respiratory Ventilation, 24-96 Consecutive Hours, High Flow/Velocity Cannula (ICD-10-PCS; principal; 2021-11-22)
DX: I21.4 Non-ST elevation (NSTEMI) myocardial infarction (principal); J96.01 Acute respiratory failure with hypoxia; N17.0 Acute kidney failure with tubular necrosis; E87.2 Acidosis; I48.19 Other persistent atrial fibrillation; J44.0 Chronic obstructive pulmonary disease with (acute) lower respiratory infection; I12.9 Hypertensive chronic kidney disease with stage 1 through stage 4 chronic kidney disease, or unspecified chronic kidney disease; J84.10 Pulmonary fibrosis, unspecified; E11.22 Type 2 diabetes mellitus with diabetic chronic kidney disease; E11.65 Type 2 diabetes mellitus with hyperglycemia; Z87.891 Personal history of nicotine dependence; F32.A Depression, unspecified; I25.10 Atherosclerotic heart disease of native coronary artery without angina pectoris; I45.10 Unspecified right bundle-branch block; J10.1 Influenza due to other identified influenza virus with other respiratory manifestations; Z90.6 Acquired absence of other parts of urinary tract; N18.32 Chronic kidney disease, stage 3b; N50.89 Other specified disorders of the male genital organs; T38.0X5A Adverse effect of glucocorticoids and synthetic analogues, initial encounter; Z66 Do not resuscitate; Z51.5 Encounter for palliative care; Z20.822 Contact with and (suspected) exposure to COVID-19; Z95.1 Presence of aortocoronary bypass graft; B90 Sequelae of tuberculosis; Z79.01 Long term (current) use of anticoagulants; I25.2 Old myocardial infarction; E78.5 Hyperlipidemia, unspecified; Z79.4 Long term (current) use of insulin; Z79.82 Long term (current) use of aspirin; Z79.84 Long term (current) use of oral hypoglycemic drugs; Z79.899 Other long term (current) drug therapy; Z85.51 Personal history of malignant neoplasm of bladder; Z86.73 Personal history of transient ischemic attack (TIA), and cerebral infarction without residual deficits; Z93.6 Other artificial openings of urinary tract status; Z95.5 Presence of coronary angioplasty implant and graft; Z98.890 Other specified postprocedural states; Z88.2 Allergy status to sulfonamides
CPT/HCPCS: 36415; 71045; 76770; 80048; 80053; 80061; 81001; 82009; 83036; 83735; 83880; 84443; 84484; 85025; 85610; 85730; 87070; 87075; 87077; 87186; 87205; 87502; 87634; 93005; 93306; 94640; 94760; 99291